=== PATIENT | female | born 1935 | race Caucasian/White ===

== ENCOUNTER 2017-09-23 14:31 | Outpatient (CLI) | payer MEDICARE, OTHER ==
--- NOTE | 2017-09-23 15:48 | RAD ---
THREE VIEWS OF THE LUMBOSACRAL SPINE: Comparison: None. History: Left sided back pain that radiates down the left leg for 2-3 months. FINDINGS: Lateral views of the lumbosacral spine were performed in neutral, flexion, and extension. Vertebral b odies demonstrate normal height and alignment without fracture or subluxation. The intervertebral dis cs are narrowed and small to moderate osteophytes are seen throughout the lumbar spine. Alignment is unchanged with flexion or extension. IMPRESSION: Degenerative changes of the lumbar spine with unchanged alignment with bending. POS: [facility]
--- NOTE | 2017-09-23 18:08 | MRI ---
MRI OF THE LUMBAR SPINE WITHOUT CONTRAST 09/23/17 COMPARISON: 02/18/14 HISTORY: Left sided back pain that radiates down the left leg for two to three months. TECHNIQUE: Multiplanar and multisequence MRI images were obtained of the lumbar spine without contrast. FINDINGS: Generalized disc desiccation and loss of intervertebral disc space height is seen. The L4-5 intervert ebral disc demonstrates surrounding end plate degenerative changes. The conus medullaris terminates normally at T12-L1. The prevertebral and paraspinal soft tissues are unremarkable. T12-L1: Unremarkable. L1-2: A small disc osteophyte complex is seen. No posterior facet arthrosis. No significant central c anal stenosis. Mild bilateral neural foraminal stenosis. L2-3: A small disc osteophyte complex is seen. Mild bilateral posterior facet arthrosis. Mild central canal stenosis. Mild bilateral neural foraminal stenosis. L3-L4: A small disc osteophyte complex is seen. Mild bilateral posterior facet arthrosis. Mild centra l canal stenosis. Mild bilateral neural foraminal stenosis. L4-5: A moderate disc osteophyte complex is seen. Moderate bilateral posterior facet arthrosis. Moder ate central canal stenosis. Moderate bilateral neural foraminal stenosis. L5-S1: A small disc osteophyte complex is associated with a superimposed right paracentral protrusion . This protrusion appears to impress upon the right S1 nerve root. Moderate to severe central canal s tenosis. Moderate bilateral posterior facet arthrosis. Moderate bilateral neural foraminal stenosis. IMPRESSION: Degenerative changes of the lumbar spine as above. There is a small superimposed protrusion at L5-S1 which has occurred in the interim. Otherwise, no significant change has occurred. POS: [facility]
== END 2017-09-23 14:32 | disposition home or self-care (01) ==
LOC: TBSIIMAG 14:31
PROVIDERS: ATTEND Nurse Practitioner Family
DX: M47.27 Other spondylosis with radiculopathy, lumbosacral region (principal); M51.17 Intervertebral disc disorders with radiculopathy, lumbosacral region; Z51.81 Encounter for therapeutic drug level monitoring; Z79.01 Long term (current) use of anticoagulants
CPT/HCPCS: 72100; 72148

== ENCOUNTER 2018-03-03 08:00 | Inpatient (IN) | payer MEDICARE, OTHER ==
[2018-03-21] MEDS ORDERED: Ropivacaine 0.5% HCl/PF (150 MG/30 ML VIAL) ONE (07:25)
[2018-03-21] MEDS ORDERED: Fentanyl 100 MCG/2 ML VIAL ONE ×5 (07:25→13:28)
[2018-03-21] MEDS ORDERED: Midazolam HCl 2 mg/2 ml Vial ONE (07:25)
[2018-03-21] MEDS ORDERED: Bupivacaine 0.25% HCL 30 ML VIAL ONE (07:25)
[2018-03-21] MEDS ORDERED: CEFAZOLIN/Water 2 GM/20 ML SYRINGE ONE (08:05)
[2018-03-21] MEDS ORDERED: Sodium Chloride 0.9% 100 ML ONE (08:05)
[2018-03-21] MEDS ORDERED: Zolpidem Tartrate 5 MG TAB PO PRN ×2 (09:21→10:10)
[2018-03-21] MEDS ORDERED: Bupivacaine 0.5% 50 ML in Sodium Chloride 0.9% 50 ML NERVE BLCK SCH (09:21)
[2018-03-21] MEDS ORDERED: Ondansetron HCl/PF 4 MG/2 ML Vial IVP PRN ×3 (09:21→10:17)
[2018-03-21] MEDS ORDERED: Ketorolac Tromethamine 30 MG/ML VIAL IVP PRN (09:21)
[2018-03-21] MEDS ORDERED: Promethazine HCl 25 MG/ML VIAL IM PRN ×3 (09:21→10:17)
[2018-03-21] MEDS ORDERED: traMADol HCl 50 MG TAB PO PRN ×2 (09:21)
[2018-03-21] MEDS ORDERED: Fentanyl 100 MCG/2 ML VIAL IV PRN (09:22)
[2018-03-21] MEDS ORDERED: HYDROcodone/Acetaminophen 7.5/325 mg Tablet PO PRN ×2 (09:24)
[2018-03-21] MEDS ORDERED: Bupivacaine PF 0.5% 30 ML VIAL ONE (09:42)
[2018-03-21] MEDS ORDERED: Acetaminophen 325 MG TAB PO PRN (10:10)
[2018-03-21] MEDS ORDERED: diphenhydrAMINE 25 MG CAP PO PRN (10:10)
[2018-03-21] MEDS ORDERED: Tranexamic Acid 1,000 MG in Sodium Chloride 0.9% 100 ML IVPB SCH (10:15)
[2018-03-21] MEDS ORDERED: Promethazine HCl 25 MG/ML VIAL SLOW IVP PRN (10:17)
[2018-03-21] MEDS ORDERED: Ondansetron HCl/PF 4 MG/2 ML Vial ONE (12:29)
[2018-03-21] MEDS ORDERED: PROPOFOL 200 MG/20 ML VIAL ONE (12:29)
[2018-03-21] MEDS ORDERED: ePHEDrine/0.9% NaCl/PF SYRINGE 50 mg/10 ml ONE (12:29)
[2018-03-21] MEDS ORDERED: Dexamethasone 20 MG/5 ML VIAL ONE (12:29)
--- NOTE | 2018-03-21 12:46 | OP ---
DATE OF PROCEDURE: 03/21/2018 PREOPERATIVE DIAGNOSIS: Left knee osteoarthrosis. POSTOPERATIVE DIAGNOSIS: Left knee osteoarthrosis. PROCEDURE PERFORMED: Left total knee replacement using Hobby pinless navigation. SURGEON: Blaine Church M.D. ENTRY LEVEL BUYER: Abilio Cee PA-C. BLOOD LOSS: Minimal. COMPLICATIONS: None. DISPOSITION: She did have general anesthetic. She also had a preoperative block. IMPLANTS: To the left knee Zaheer Triathlon knee system, the femur was size 5 cruciate retaining, t ibial baseplate size 4 universal, polyethylene is a size 9 CS X3 poly and we used a 29 x 9 X3 patella . DISPOSITION: She did go to recovery in stable condition. INDICATIONS: An 82-year-old female who has had knee arthritis and back pain for years and at this ti me has opted to have surgery. PROCEDURE IN DETAIL: After all appropriate consent forms were explained and signed, the patient was t aken back to the Operating Room and at this time was given general anesthetic. Once the level of ane sthesia was appropriate, a well-padded tourniquet was placed on the left leg and the leg was then pre pped and draped in standard surgical fashion. The limb was exsanguinated and tourniquet taken up to 300 mmHg. Midline incision was made with a 10 blade down through the skin and subcutaneous tissue. Bovie electrocautery was used to coagulate any brisk venous bleeding. A new blade was used to make a medial parapatellar arthrotomy. Small subperiosteal release was performed medially and excess fat p ad was removed. The knee was flexed up to gain access to the femur. The femur was navigated and dis piper femoral resection was made. Epicondylar access was used to align our sizing jig and this was pin cal in place. We sized our femur to be a 5 cruciate retaining 4:1 cutting block was applied and pinn ed. Anterior and posterior chamfer cuts were then made. We navigated out our proximal tibia and mad e our proximal tibial resection. Spreaders were used to remove any posterior osteophytes off the june k of the femur as well as remaining meniscal tissue. A long alignment seferino was then used to achieve c orrect rotation of our tibial baseplate and a size 4 universal tibial baseplate was chosen. This was pinned in place. We trialed the polyethylene and a 9 CS X3 polyethylene gave us full extension and good stability throughout range of motion. Two towel clips and a saw were used to cut our patella. Three lug nuts were drilled and 29 x 9 X3 patella was trialed which sat nicely in the trochlear groov e. We then drilled our femur and punched our tibia. All components were removed. The knee was thor oughly irrigated and dried. Cement was mixed into the cement gun on the back table. Components were then placed. The knee was held out in full extension until the cement had dried. All excess bone c ement was removed. Multiple #2 Vicryl stitches as well as a Quill was used to close our extensor mec hanism. 0 Quill followed by a running Monoderm was then used to close the skin. Surgicel glue was t hen used on the skin. Once this had dried, soft tissue dressing was applied to the limb, tourniquet was let down, and the toes pinked up nicely. The patient was then awakened and taken to the Recovery Room in stable condition. All counts were correct at the end of the case. The patient did receive preoperative IV antibiotics. The patient was injected with Exparel for postoperative pain relief.
[2018-03-21] MEDS: CEFAZOLIN/Water 2 GM/20 ML SYRINGE SLOW IVP SCH ×2 (17:12→23:17)
[2018-03-21] MEDS: HYDROcodone/Acetaminophen 10/325 mg Tablet PO PRN (17:20)
[2018-03-21] MEDS: Sodium Chloride 0.9% 1,000 ML IV SCH ×3 (17:22→19:52)
[2018-03-21] MEDS: Senokot S 8.6-50 MG TAB PO SCH (20:12)
[2018-03-21] MEDS: Ferrous Gluconate 324 MG TAB PO SCH (20:13)
[2018-03-21] MEDS: DULoxetine 60 MG CAP PO SCH (20:13)
[2018-03-21] MEDS ORDERED: Aspirin 81 mg Enteric Coated Tablet PO SCH (21:00)
[2018-03-22] MEDS: Bupivacaine 0.75% 33.3 ML in Sodium Chloride 0.9% 66.7 ML NERVE BLCK SCH ×2 (01:38→11:19)
[2018-03-22] MEDS: HYDROcodone/Acetaminophen 10/325 mg Tablet PO PRN ×3 (04:30→13:00)
[2018-03-22] MEDS: Sodium Chloride 0.9% 1,000 ML IV SCH ×2 (05:26→15:05)
[2018-03-22 05:29] LABS: Hemoglobin 9.9 g/dL (12.0-16.0); Mean Corpuscular HGB CONC 32.7 g/dL (32.0-36.0); Mean Corpuscular Hemoglobin 30.9 pg (27.0-31.0); Mean Corpuscular Volume 94.4 fl (81.0-99.0); Mean Platelet Volume 7.2 fL (7.4-10.4); Platelet Count 217 thou/uL (130-400); RBC Distribution Width 12.3 % (11.5-14.5); Red Blood Cell (RBC) Count 3.22 mill/uL (4.20-5.40); White Blood Cell (WBC) Count 11.2 thou/uL (4.8-10.8)
[2018-03-22 06:58] LABS: Anion Gap 13 mmol/L (10-20); BUN (Urea Nitrogen) 30 mg/dL (9.8-20.1); Calc. Creatinine Clearance 0 mL/min (70-130); Calcium 8.7 mg/dL (7.8-10.44); Carbon Dioxide 21 mmol/L (23-31); Chloride 108 mmol/L (98-107); Estimated GFR-MDRD 45; Glucose 125 mg/dL (83-110); Potassium 4.4 mmol/L (3.5-5.1); Sodium 138 mmol/L (136-145)
[2018-03-22] MEDS: Furosemide 40 MG TAB PO SCH (08:41)
[2018-03-22] MEDS: Calcium Carbonate + Vit D 1 TAB PO SCH ×2 (08:41→20:47)
[2018-03-22] MEDS: Ferrous Gluconate 324 MG TAB PO SCH ×2 (08:41→20:47)
[2018-03-22] MEDS: Multivitamin W/ Minerals 1 TAB PO SCH (08:41)
[2018-03-22] MEDS: Senokot S 8.6-50 MG TAB PO SCH ×2 (08:41→20:47)
[2018-03-22] MEDS: Fish Oil 1,000 MG CAP PO SCH (08:42)
--- NOTE | 2018-03-22 09:13 | CON ---
DATE OF CONSULTATION: 03/22/2018 REASON FOR CONSULTATION: Medical management. PRESENTING COMPLAINT: Left knee pain. HISTORY OF PRESENT ILLNESS: Ms. Catina Asif is an 82-year-old female with a past medical history of CKD, hypertension and hyperlipidemia who was admitted yesterday for a left total replacements of the knee. Her only complaint is postop pain in her left knee. She otherwise feels fine. She denies matthew st pain, shortness of breath, PND, orthopnea, lower extremity edema. She has no abdominal or urinary symptoms. She reports a history of hypertension, hyperlipidemia and history of chronic kidney disea se. She has not been diagnosed with heart failure in the past. She has been on Lasix for about 40 y ears for lower extremity edema. She also takes a daily aspirin and valsartan for blood pressure. PAST MEDICAL HISTORY: As stated in the HPI. PAST SURGICAL HISTORY: Right knee replacement. Other history reviewed and noncontributory. FAMILY HISTORY: Reviewed and noncontributory. SOCIAL HISTORY: She does not smoke cigarettes, drink alcohol or use illicit drugs. ALLERGIES: No known drug allergies. HOME MEDICATIONS: Reviewed. REVIEW OF SYSTEMS: All systems reviewed are negative except as stated in HPI. PHYSICAL EXAMINATION: VITAL SIGNS: Blood pressure 129/67, temperature 98.9, pulse rate 93, respiratory rate 18, oxygen sat uration 96% on 2 liters of nasal cannula. GENERAL: Not in acute distress, sitting comfortably in chair beside the bed. HEENT: Normocephalic, atraumatic. Moist mucous membranes. PERRLA, EOMI. NECK: Supple, full range of movement. CARDIOVASCULAR: S1 and S2 normally. Regular rate and rhythm. No murmurs, rubs or gallops. RESPIRATORY: Vesicular breath sounds bilaterally. No wheezes, rales or rhonchi. ABDOMEN: Soft, nontender, nondistended. Bowel sounds normoactive. EXTREMITIES: No edema. Left knee in protective brace. NEUROLOGIC: Alert and well oriented. No focal deficits. SKIN: Warm, dry, well-perfused. No rashes or lesions. PSYCHIATRIC: Normal mood and affect. LABORATORY DATA: Reviewed. ASSESSMENT AND PLAN: Her problems include hypertension, hyperlipidemia, chronic kidney disease and s he is status post total left knee replacement. PLAN: Will recommend continuing with her home medications as tolerated. Further management for her postop need to be directed to the Orthopedic Surgery Service. Internal Medicine Service will sign of f for now. Please do not hesitate to call us if you have any questions or concerns.
[2018-03-22 11:09] VITALS: BMI 37.6
[2018-03-22] MEDS: traMADol HCl 50 MG TAB PO PRN (15:09)
[2018-03-22] MEDS: DULoxetine 60 MG CAP PO SCH (20:47)
[2018-03-22] MEDS ORDERED: Latanoprost 0.005% Ophth Soln 2.5 ml Bottle EA EYE SCH (21:00)
[2018-03-23] MEDS: Bupivacaine 0.75% 33.3 ML in Sodium Chloride 0.9% 66.7 ML NERVE BLCK SCH (01:06)
[2018-03-23] MEDS: HYDROcodone/Acetaminophen 10/325 mg Tablet PO PRN (01:32)
[2018-03-23] MEDS: Sodium Chloride 0.9% 1,000 ML IV SCH ×2 (01:37→10:07)
[2018-03-23 05:07] LABS: Hemoglobin 9.8 g/dL (12.0-16.0); Mean Corpuscular HGB CONC 32.3 g/dL (32.0-36.0); Mean Corpuscular Hemoglobin 30.3 pg (27.0-31.0); Mean Corpuscular Volume 93.8 fl (81.0-99.0); Mean Platelet Volume 7.4 fL (7.4-10.4); Platelet Count 216 thou/uL (130-400); RBC Distribution Width 12.5 % (11.5-14.5); Red Blood Cell (RBC) Count 3.25 mill/uL (4.20-5.40); White Blood Cell (WBC) Count 11.7 thou/uL (4.8-10.8)
[2018-03-23] MEDS: Senokot S 8.6-50 MG TAB PO SCH (08:38)
[2018-03-23] MEDS: Ferrous Gluconate 324 MG TAB PO SCH (08:39)
[2018-03-23] MEDS: Furosemide 40 MG TAB PO SCH (08:39)
[2018-03-23] MEDS: Multivitamin W/ Minerals 1 TAB PO SCH (08:39)
[2018-03-23] MEDS: Calcium Carbonate + Vit D 1 TAB PO SCH (08:39)
[2018-03-23] MEDS: Fish Oil 1,000 MG CAP PO SCH (08:39)
[2018-03-23] MEDS: traMADol HCl 50 MG TAB PO PRN (15:11)
[2018-03-23 15:35] VITALS: BP 163/80; TEMP 98.1
== END 2018-03-23 15:44 | DRG 470 ==
LOC: SJJU 03-21 06:57
PROVIDERS: ADMIT Orthopaedic Surgery; ATTEND Orthopaedic Surgery
PROC: 0SRD0J9 Replacement of Left Knee Joint with Synthetic Substitute, Cemented, Open Approach (ICD-10-PCS; principal; 2018-03-21)
PROC: 3E0T33Z Introduction of Anti-inflammatory into Peripheral Nerves and Plexi, Percutaneous Approach (ICD-10-PCS; 2018-03-21)
PROC: 3E0T3BZ Introduction of Anesthetic Agent into Peripheral Nerves and Plexi, Percutaneous Approach (ICD-10-PCS; 2018-03-21)
DX: M17.12 Unilateral primary osteoarthritis, left knee (principal); I12.9 Hypertensive chronic kidney disease with stage 1 through stage 4 chronic kidney disease, or unspecified chronic kidney disease; N18.9 Chronic kidney disease, unspecified; E78.5 Hyperlipidemia, unspecified; G89.18 Other acute postprocedural pain; Z96.651 Presence of right artificial knee joint; Z79.899 Other long term (current) drug therapy; Z79.82 Long term (current) use of aspirin; Z85.3 Personal history of malignant neoplasm of breast; Z86.19 Personal history of other infectious and parasitic diseases; Z90.13 Acquired absence of bilateral breasts and nipples; Z87.39 Personal history of other diseases of the musculoskeletal system and connective tissue
CPT/HCPCS: 36415; 80048; 85027; C1713; C1776; G8978-GP-CL; G8979-GP-CI; J1100; J2250; J2405; J2704; J2795; J3010; J3370; J3490; J7050; S0020

== ENCOUNTER 2018-03-03 08:05 | Outpatient (CLI) | payer MEDICARE, OTHER ==
[2018-03-03 09:07] VITALS: BMI 37.6
[2018-03-03 09:10] LABS: #Basophils 0.1 thou/uL (0.0-0.2); #Eosinphils 0.2 thou/uL (0.0-0.7); #Lymphocytes 2.2 thou/uL (1.20-3.40); #Monocytes 0.7 thou/uL (0.11-0.59); #Neutrophils 3.4 thou/uL (1.40-6.50); %Basophils 0.9 % (0.0-1.0); %Eosinophils 3.5 % (0.0-10.0); %Lymphocytes 33.7 % (21.0-51.0); %Monocytes 9.9 % (0.0-10.0); Hemoglobin 11.5 g/dL (12.0-16.0); Mean Corpuscular HGB CONC 33.2 g/dL (32.0-36.0); Mean Corpuscular Hemoglobin 31.4 pg (27.0-31.0); Mean Corpuscular Volume 94.6 fl (81.0-99.0); Mean Platelet Volume 7.3 fL (7.4-10.4); Platelet Count 271 thou/uL (130-400); RBC Distribution Width 12.4 % (11.5-14.5); Red Blood Cell (RBC) Count 3.68 mill/uL (4.20-5.40); White Blood Cell (WBC) Count 6.6 thou/uL (4.8-10.8)
[2018-03-03 09:25] LABS: Bilirubin Negative (Negative); Blood, Urine Negative (Negative); Clarity CLEAR (Clear); Glucose, Urine (Dipstick) Negative (Negative); Leukocyte Trace (Negative); Nitrite Negative (Negative); Protein, Urine (Dipstick) Negative (Neg-Trace); Specific Gravity, Urine 1.013 (1.002-1.036); Urobilinogen 0.2 mg/dL (0.2-1.0); pH, Urine 6.5 (5.0-9.0)
[2018-03-03 09:29] LABS: Bacteria/HPF None Seen HPF (None Seen); Hyaline Casts/LPF 0-3 HYALINE CAST LPF (0-3 Hyaline); RBC/HPF 0-3 HPF (0-3); Squamous Epithelial None Seen HPF (0-3); WBC/HPF 0-3 HPF (0-3)
[2018-03-03 09:32] LABS: Anion Gap 12 mmol/L (10-20); BUN (Urea Nitrogen) 31 mg/dL (9.8-20.1); Calc. Creatinine Clearance 54 mL/min (70-130); Calcium 9.9 mg/dL (7.8-10.44); Carbon Dioxide 26 mmol/L (23-31); Chloride 105 mmol/L (98-107); Estimated GFR-MDRD 31; Glucose 97 mg/dL (83-110); Potassium 4.7 mmol/L (3.5-5.1); Sodium 138 mmol/L (136-145)
[2018-03-03 10:06] LABS: PTT 29.3 SEC (22.9-36.1); Prothrombin Time 12.9 SEC (12.0-14.7)
--- NOTE | 2018-03-03 20:29 | EKG ---
Test Reason : Blood Pressure : / mmHG Vent. Rate : 059 BPM Atrial Rate : 059 BPM P-R Int : 196 ms QRS Dur : 088 ms QT Int : 412 ms P-R-T Axes : 061 062 067 degrees QTc Int : 407 ms Sinus bradycardia Otherwise normal ECG When compared with ECG of 24-APR-2014 13:53, No significant change was found Confirmed by JAYLEEN HATHAWAY, DR. Gallegos ([id number]) on 03/03/2018 8:28:54 PM Referred By: IERO Confirmed By:DR. El CLEMENS MD
== END 2018-03-03 08:06 | disposition home or self-care (01) ==
LOC: LABBT 08:05
PROVIDERS: ATTEND Orthopaedic Surgery
DX: Z01.818 Encounter for other preprocedural examination (principal); M17.12 Unilateral primary osteoarthritis, left knee
CPT/HCPCS: 80048; 81001; 85025; 85610; 85730; 87081; 93005; 93010

== ENCOUNTER 2018-03-16 16:01 | Outpatient (CLI) | payer MEDICARE, OTHER | END 2018-03-16 16:02 | disposition home or self-care (01) | LOC: LABBT 16:01 | PROVIDERS: ATTEND Orthopaedic Surgery | DX: Z01.818 Encounter for other preprocedural examination (principal); M17.12 Unilateral primary osteoarthritis, left knee | CPT/HCPCS: 86850; 86900; 86901 ==

== ENCOUNTER 2018-05-17 13:43 | Inpatient (IN) | payer MEDICARE, OTHER ==
--- NOTE | 2018-05-17 14:57 | RAD ---
RIGHT ANKLE THREE VIEWS: History: Fall, right ankle injury. FINDINGS: Comminuted oblique fracture of the distal fibula just above the level of the ankle mortise is present with one-half shaft width lateral displacement. Impacted and comminuted minimally displaced fracture involving the base of the medial malleolus is present. There is 0.3 cm lateral shift of all fragment s and the talus. Posterior malleolus is intact. Degenerative changes throughout the ankle and hindfoo t. Achilles and plantar heel spurs. Overlying soft tissue swelling. IMPRESSION: Bimalleolar fracture right ankle with mild lateral subluxation. POS: [facility]
[2018-05-17 16:06] LABS: INR-International Normal Ratio 0.9; Prothrombin Time 12.5 SEC (12.0-14.7)
[2018-05-17 16:17] LABS: ALT (SGPT) 13 U/L (8-55); AST (SGOT) 20 U/L (5-34); Albumin 4.6 g/dL (3.4-4.8); Alkaline Phosphatase 71 U/L (40-150); Anion Gap 15 mmol/L (10-20); BUN (Urea Nitrogen) 28 mg/dL (9.8-20.1); Bilirubin, Total 0.3 mg/dL (0.2-1.2); Calc. Creatinine Clearance 0 mL/min (70-130); Calcium 10.4 mg/dL (7.8-10.44); Carbon Dioxide 24 mmol/L (23-31); Chloride 104 mmol/L (98-107); Estimated GFR-MDRD 37; Globulin 3.7 g/dL (2.4-3.5); Glucose 91 mg/dL (83-110); Protein, Total 8.3 g/dL (6.0-8.3); Sodium 139 mmol/L (136-145)
[2018-05-17] MEDS ORDERED: Dextrose 5% in Water 1,000 ML IV PRN ×2 (16:45→17:00)
[2018-05-17] MEDS ORDERED: Dextrose 50% Abboject 50 ML SYRINGE SLOW IVP PRN ×2 (16:45→17:00)
[2018-05-17] MEDS ORDERED: hydrALAZINE 20 MG/ML VIAL SLOW IVP PRN (17:00)
[2018-05-17 17:06] LABS: #Basophils 0.1 thou/uL (0.0-0.2); #Eosinphils 0.2 thou/uL (0.0-0.7); #Lymphocytes 2.8 thou/uL (1.20-3.40); #Monocytes 0.6 thou/uL (0.11-0.59); #Neutrophils 5.5 thou/uL (1.40-6.50); %Basophils 0.9 % (0.0-1.0); %Eosinophils 2.6 % (0.0-10.0); %Lymphocytes 30.1 % (21.0-51.0); %Monocytes 6.7 % (0.0-10.0); %Neutrophils 59.6 % (42.0-75.0); Hemoglobin 11.7 g/dL (12.0-16.0); Mean Corpuscular HGB CONC 33.3 g/dL (32.0-36.0); Mean Corpuscular Hemoglobin 31.2 pg (27.0-31.0); Mean Corpuscular Volume 93.7 fL (78.0-98.0); Mean Platelet Volume 7.6 fL (7.4-10.4); Platelet Count 298 thou/uL (130-400); RBC Distribution Width 12.7 % (11.5-14.5); Red Blood Cell (RBC) Count 3.74 mill/uL (4.20-5.40); White Blood Cell (WBC) Count 9.1 thou/uL (4.8-10.8)
[2018-05-17 19:42] VITALS: BMI 38.5
[2018-05-17] MEDS: Acetaminophen 1,000 MG in Premix Bag 1 BAG IVPB SCH (20:49)
--- NOTE | 2018-05-17 22:03 | CON ---
DATE OF CONSULTATION: 05/17/2018 CHIEF COMPLAINT: Right ankle pain. HISTORY OF PRESENT ILLNESS: Ms. Asif is an 82-year-old female who fell at home today. She was outsi de in her yard. She tripped and lost her balance. She twisted her ankle. She had immediate ankle p ain. She has an abrasion over her left knee as well. She was unable to ambulate. EMS brought her t o the hospital for evaluation. X-rays of the ankle demonstrated a bimalleolar ankle fracture. She i s resting comfortably in the emergency room currently. She has had no other serious injuries and has been stable. Of note, she did have a left total knee arthroplasty approximately 2 months ago. She has also had a right knee arthroplasty in the past. She was still doing physical therapy for her lef t knee. PAST MEDICAL HISTORY: Positive for hypertension, hyperlipidemia, chronic kidney disease, chronic mela ma, CHF. PAST SURGICAL HISTORY: Bilateral total knee arthroplasty. FAMILY MEDICAL HISTORY: Noncontributory. SOCIAL HISTORY: The patient denies alcohol, tobacco or drug use. ALLERGIES: No known drug allergies. MEDICATIONS: See chart. REVIEW OF SYSTEMS: Positive for right ankle pain and left knee pain as per HPI, otherwise negative 1 0-point review of systems. PHYSICAL EXAMINATION: VITAL SIGNS: Stable. The patient is normotensive, 98% on room air. GENERAL: She is alert, oriented, no apparent distress, sitting upright. RESPIRATORY: Breathing comfortably. ABDOMEN: Soft, nontender, nondistended. MUSCULOSKELETAL: The patient's right lower extremity has some external rotation. She has pain to pa lpation over the malleoli. There is swelling and ecchymosis. She has palpable dorsalis pedis pulse. She is able to flex and extend the foot and ankle and has intact neurological status. Two-second c apillary refill. The left knee has a superficial abrasion. She has a well healed surgical scar over the anterior knee. IMAGES: X-rays of the right ankle demonstrated displaced bimalleolar ankle fracture, which is acute. IMPRESSION: Right bimalleolar ankle fracture in a patient with recent total knee arthroplasty. PLAN: At this point, the patient will need to be admitted to the hospital. She will have difficulty mobilizing given that she has had a recent knee replacement and she is nonweightbearing on the right leg. She will be placed in a splint tonight. She will need to go to the operating room tomorrow fo r open reduction internal fixation of the right ankle. She is aware of risks and benefits and the pa ed for surgery. Surgical plan as well as postoperative recovery was reviewed with her. She will lik gorge need placement to a rehab facility for recovery. She will have appropriate DVT prophylaxis and a ntibiotic prophylaxis.
[2018-05-17] MEDS: Sodium Chloride 0.9% 1,000 ML IV SCH (23:36)
[2018-05-17] MEDS ORDERED: Sodium Chloride 0.9% 1,000 ML IV SCH (23:59)
[2018-05-18] MEDS: Acetaminophen 1,000 MG in Premix Bag 1 BAG IVPB SCH ×4 (01:59→20:41)
--- NOTE | 2018-05-18 03:01 | HP ---
DATE OF ADMISSION: 05/17/2018 ADMITTING PHYSICIAN: Dr. Kris Horne. CONSULTING PHYSICIAN: Dr. Robbi Crow, Orthopedics. HISTORY OF PRESENT ILLNESS: Ms. Asif is an 82-year-old female who presented to the [facility] after a ground-level fall today. She apparently was ambulating with her cane which mika mccall has used since knee surgery in 03/2018. The cane slipped off the curb that she was stepping off of causing her to lose her balance and fall. She rolled her right ankle in the process of falling to t he ground. She sustained no other injury. She complained of right ankle pain. She was transported to [facility] where she underwent evaluation that identified right ankle fractur e. PAST MEDICAL HISTORY: 1. Breast cancer. 2. Hypertension. 3. Gastroesophageal reflux disease. 4. Hyperlipidemia. PAST SURGICAL HISTORY: 1. Bilateral total knee replacement, right in 2013, left 03/2018. 2. Double mastectomy in 1993. 3. Achilles tendon repair in 2016. SOCIAL HISTORY: Alcohol none. Tobacco none. Drugs, none. HOME MEDICATIONS: 1. Acetaminophen 650 mg tablet every morning as needed. 2. Aspirin 81 mg tablet q.p.m. 3. Lumigan 0.01% ophthalmic solution 1 drop each eye at bedtime. 4. Calcium carbonate plus vitamin D 1500 mg/400 units 1 tab p.o. b.i.d. 5. Vitamin D3 1000 units q.p.m. 6. Cymbalta 60 mg q.p.m. 7. Fish oil 1200 mg q.a.m. 8. Furosemide 40 mg q.a.m. 9. Glucosamine/D3/Boswellia Josefina 1 tablet p.o. b.i.d. 10. Centrum Silver 1 tablet p.o. q.p.m. 11. Pantoprazole 40 mg p.o. at bedtime. 12. Pravachol 20 mg p.o. q.p.m. 13. Lyrica 50 mg p.o. b.i.d. 14. Spironolactone 25 mg p.o. q.a.m. 15. Timolol maleate 0.5% ophthalmic solution 1 drop each eye daily. ALLERGIES: TRAMADOL. LABORATORY DATA: CBC: WBC 9.1, RBC 3.74, hemoglobin 11.7, hematocrit 35.0, platelets 298. Coags: PT 12.5, INR 0.9. Chemistry: Sodium 139, potassium 4.0, chloride 104, carbon dioxide 24, BUN 28, cr eatinine 1.38, glucose 91. It should be noted that patient has chronic kidney disease stage 3. Creatinine 1.38 is near baseline range. REVIEW OF SYSTEMS: Constitutional: The patient denies fever, chills, recent weight loss or generali zed malaise. HEENT: Denies sore throat, rhinorrhea, otorrhea or neck pain. Respiratory: Denies co ugh, shortness of breath or wheezing. Cardiovascular: Denies chest pain, palpitations or syncope. Gastrointestinal: Denies abdominal pain, constipation, nausea, vomiting or diarrhea. Genitourinary: Denies dysuria, hematuria or frequency. Musculoskeletal: Reports fall, reports right ankle pain. Skin: Denies rash or skin changes. Neurologic: Denies headache, dizziness or focal deficit. Heme/Lymphatic: Denies abnormal bleeding. PHYSICAL EXAMINATION: VITAL SIGNS: Blood pressure 152/56, pulse 60, respirations 18, temperature 98.1, O2 sat 96% room air . GENERAL: Elderly female, sitting on bed, in no acute distress, nontoxic appearing. HEENT: Atraumatic, normocephalic. NECK: Trachea midline. No posterior neck tenderness. RESPIRATORY: Bilateral breath sounds clear. No respiratory distress. Chest movement symmetrical. CARDIOVASCULAR: Regular rate and rhythm. Heart sounds normal. ABDOMEN: Soft, nontender, nondistended, no masses. BACK: Normal inspection and range of motion. EXTREMITIES: Right lower extremity with a splint in place. Cap refill brisk in all extremities, bijan rovascular intact lower extremities. NEUROLOGIC: GCS 15. Awake, alert, and oriented x3. SKIN: Warm, dry, and normal in color. ASSESSMENT AND PLAN: 1. An 82-year-old female status post ground level fall. 2. Right bimalleolar ankle fracture. 3. History of chronic kidney disease stage 3. 4. History of hypertension. 5. History of gastroesophageal reflux disease. 6. History of hyperlipidemia. 7. Patient is currently on diuretics. Reportedly, she has been on diuretics for 40 years due to low er extremity edema. She denies CHF or cardiac abnormalities. PLAN: 1. Admit to surgical floor by Trauma Services. 2. Orthopedic consult, Dr. Crow. Dr. Crow plans to take patient to the OR tomorrow. 3. Regular diet tonight. N.p.o. after midnight. 4. IV fluids, IV analgesia. 5. Obtain preop EKG. 6. Physical and occupational therapy with orthopedic restrictions postoperatively. 7. Rehabilitation referral. The patient was recently in inpatient rehabilitation after left total k nee replacement. 8. SCDs for DVT prophylaxis. 9. Pepcid for gastritis prophylaxis. The patient was seen and examined with Dr. Horne, who agrees with plan.
[2018-05-18 06:20] LABS: Anion Gap 14 mmol/L (10-20); BUN (Urea Nitrogen) 25 mg/dL (9.8-20.1); Calc. Creatinine Clearance 78 mL/min (70-130); Calcium 9.2 mg/dL (7.8-10.44); Carbon Dioxide 23 mmol/L (23-31); Chloride 108 mmol/L (98-107); Estimated GFR-MDRD 47; Glucose 95 mg/dL (83-110); Sodium 141 mmol/L (136-145)
[2018-05-18 06:23] LABS: #Eosinphils 0.2 thou/uL (0.0-0.7); #Lymphocytes 2.1 thou/uL (1.20-3.40); #Monocytes 0.7 thou/uL (0.11-0.59); #Neutrophils 3.6 thou/uL (1.40-6.50); %Basophils 0.5 % (0.0-1.0); %Eosinophils 3.1 % (0.0-10.0); %Lymphocytes 31.5 % (21.0-51.0); %Monocytes 10.9 % (0.0-10.0); Hemoglobin 9.8 g/dL (12.0-16.0); Mean Corpuscular HGB CONC 33.4 g/dL (32.0-36.0); Mean Corpuscular Hemoglobin 31.4 pg (27.0-31.0); Mean Platelet Volume 7.5 fL (7.4-10.4); Platelet Count 217 thou/uL (130-400); RBC Distribution Width 12.6 % (11.5-14.5); White Blood Cell (WBC) Count 6.7 thou/uL (4.8-10.8)
[2018-05-18] MEDS ORDERED: CEFAZOLIN/Water 2 GM/20 ML SYRINGE SLOW IVP SCH (07:15)
[2018-05-18] MEDS: Famotidine/PF 20 mg/2ml Vial SLOW IVP SCH (09:30)
[2018-05-18 09:59] LABS: Phosphorus 3.9 mg/dL (2.3-4.7)
[2018-05-18] MEDS ORDERED: CEFAZOLIN/Water 2 GM/20 ML SYRINGE ONE (11:36)
[2018-05-18] MEDS ORDERED: Fentanyl 100 MCG/2 ML VIAL ONE ×2 (11:37→13:51)
[2018-05-18] MEDS ORDERED: Dexamethasone 4 mg/ml Vial ONE (11:38)
[2018-05-18] MEDS ORDERED: Midazolam HCl 2 mg/2 ml Vial ONE (11:39)
[2018-05-18] MEDS ORDERED: Bupivacaine HCl 0.5%/Epinephrine 1:200,000/PF 30 ml Vial ONE (12:44)
[2018-05-18] MEDS ORDERED: PROPOFOL 200 MG/20 ML VIAL ONE (13:51)
[2018-05-18] MEDS ORDERED: Lidocaine 1% PF 5 ML VIAL ONE (13:51)
[2018-05-18] MEDS ORDERED: Ondansetron HCl/PF 4 MG/2 ML Vial ONE (13:51)
[2018-05-18] MEDS ORDERED: Dexamethasone 20 MG/5 ML VIAL ONE (13:51)
--- NOTE | 2018-05-18 14:38 | OP ---
DATE OF PROCEDURE: 05/18/2018. PREOPERATIVE DIAGNOSIS: Right trimalleolar ankle fracture. POSTOPERATIVE DIAGNOSIS: Right trimalleolar ankle fracture. SURGICAL PROCEDURE: Open reduction internal fixation right medial and lateral malleoli. ANESTHESIA: General. SURGEON: Sky Dan M.D. POWDER SHOVELER: Robbi Cee PA-C TOURNIQUET TIME: Approximately 45 minutes at 300 mmHg. IMPLANTS: Synthes 1/3 tubular 7-hole plate with combination of cortical and cancellous screws. COMPLICATIONS: None. DRAINS: None. SPECIMEN: None. OUTCOME: Satisfactory. INDICATIONS: The patient is an 82-year-old lady status post ground level fall sustaining a trimalleo lar ankle fracture with a very small posterior malleolar fragment. After discussion with patient inc luding risks and benefits, we decided to proceed with open reduction and internal fixation. The risk s include, but are not limited to bleeding, infection, nerve injury, DVT, PE, loss of limb or life. The patient appears to understand and does wish to proceed. Consent has been obtained. PROCEDURE: The patient was brought to the operating room and a timeout performed followed by inducti on of general anesthesia. Next, the patient was positioned supine on the OR table and then a sterile prep and drape was performed of the right lower extremity. The limb was then exsanguinated with Esm arch bandage, tourniquet inflated to 300 mmHg. A lateral ankle incision was made in line with the di stal fibula after skin was sharply incised, dissection was carried down bluntly to the underlying per iosteum of the distal fibula. The periosteum was incised with a scalpel and then reflected gently to expose the fracture edges. The fracture was then reduced and held in place with a bone tenaculum. An anterior to posterior interfragmentary compression screw was applied in standard fashion. Next, a 7-hole 1/3 tubular plate was contoured to fit the lateral cortex of the distal fibula. This was the n fit to the bone using 4 cortical screws proximally and 3 cancellous screws distally. AP, lateral C -arm images were obtained that showed near anatomic alignment of the fracture. Next, a small incisio n was made along the medial malleolus after skin was sharply incised, dissection was carried down shaheen ntly, taking care to preserve the saphenous vein. The fracture was reduced and then stabilized with 2 partially threaded 4.0 mm cancellous screws in standard fashion. At the completion of hardware christ cement, AP, lateral and mortise x-rays of the ankle were obtained that showed anatomic alignment of t he fracture and appropriate positioning of the hardware. The wounds were then irrigated with bulb sy ringe and closed in layers with 0 Vicryl followed by 2-0 Vicryl and darien for the skin. A Xeroform gauze, Webril, and fiberglass splint was applied to the ankle. Tourniquet was let down with approxi mate total time of 45 minutes. There were no complications. The patient tolerated the procedure wel l.
--- NOTE | 2018-05-18 16:29 | PRG ---
DATE OF SERVICE: 05/18/2018 ATTENDING PHYSICIAN: Dr. Kris Horne. SUBJECTIVE: Ms. Asif is an 82-year-old female, who sustained a ground-level fall yesterday. Workup identified a right bimalleolar fracture. She is scheduled for the operating room today with Orthoped ic Surgery for fixation of her fracture. She reports the pain was not well controlled overnight. OBJECTIVE: VITAL SIGNS: Temperature 97.9, pulse 66, respirations 18, O2 sat 94% on room air, blood pressure 125 /68. CONSTITUTIONAL: Elderly female, lying in bed, in no acute distress. HEENT: Atraumatic, normocephalic. RESPIRATORY: Respirations even and unlabored. Chest movement symmetrical. CARDIOVASCULAR: Regular rate and rhythm. ABDOMEN: Soft, nontender, nondistended. EXTREMITIES: Moves all extremities. Cap refill brisk in all extremities. Neurovascularly intact. NEUROLOGIC: GCS 15. Awake, alert, and oriented x3. LABORATORY STUDIES: CBC: WBC 6.7, RBC 3.10, hemoglobin 9.8, hematocrit 29.2, platelets 217,000. Ch emistry: Sodium 141, potassium 4.0, chloride 108, carbon dioxide 23, BUN 25, creatinine 1.11, glucos e 95, calcium 9.2, phosphorus 3.9, magnesium 2.0. ASSESSMENT: 1. Status post ground-level fall. 2. Right bimalleolar ankle fracture. 3. History of chronic kidney disease, stage 3. 4. History of hypertension. 5. History of gastroesophageal reflux disease. 6. History of hyperlipidemia. 7. Acute traumatic pain. PLAN: 1. Plan for Orthopedic Surgery to fix bimalleolar ankle fracture today. 2. Add IV morphine for breakthrough pain. 3. Continue n.p.o. Anticipate will resume regular diet postoperatively. 4. Physical and occupational therapy with orthopedic restrictions postoperatively. 5. Rehabilitation referral made yesterday. The patient was recently in inpatient rehabilitation aft er left total knee replacement. 6. SCDs for DVT prophylaxis. Begin chemical DVT prophylaxis when okay with Orthopedic Surgery. 7. Pepcid for gastritis prophylaxis. The patient was seen and examined with Dr. Horne, who agrees with plan.
--- NOTE | 2018-05-18 17:24 | RAD ---
INTRAOPERATIVE THREE VIEW EXAMINATION OF THE RIGHT ANKLE: 05/18/18 HISTORY: Open reduction and internal fixation of ankle fracture. FINDINGS: Three intraoperative images are provided. There are two screws traversing the obliquely oriented medi al malleolar fracture. A distal fibular fracture is treated with a lateral screw and plate fixation. There is no evidence for dislocation. IMPRESSION: Open reduction and internal fixation of fibular and tibial fractures as detailed above. POS: [facility]
[2018-05-18] MEDS: DULoxetine 60 MG CAP PO SCH (20:35)
[2018-05-18] MEDS: Pregabalin 50 MG CAP PO SCH (20:35)
[2018-05-18] MEDS: Pravastatin Sodium 20 MG TAB PO SCH (20:36)
[2018-05-18] MEDS: Latanoprost 0.005% Ophth Soln 2.5 ml Bottle EA EYE SCH (20:45)
[2018-05-18] MEDS: CEFAZOLIN/Water 2 GM/20 ML SYRINGE SLOW IVP SCH (20:50)
[2018-05-19] MEDS: Sodium Chloride 0.9% 1,000 ML IV SCH ×2 (00:52→00:53)
[2018-05-19 04:39] LABS: #Basophils 0.1 thou/uL (0.0-0.2); #Lymphocytes 1.4 thou/uL (1.20-3.40); #Monocytes 0.2 thou/uL (0.11-0.59); #Neutrophils 7.7 thou/uL (1.40-6.50); %Eosinophils 0.1 % (0.0-10.0); %Lymphocytes 14.9 % (21.0-51.0); %Monocytes 2.4 % (0.0-10.0); %Neutrophils 81.6 % (42.0-75.0); Hemoglobin 9.9 g/dL (12.0-16.0); Mean Corpuscular HGB CONC 32.9 g/dL (32.0-36.0); Mean Corpuscular Hemoglobin 31.6 pg (27.0-31.0); Mean Corpuscular Volume 95.9 fL (78.0-98.0); Mean Platelet Volume 7.7 fL (7.4-10.4); Platelet Count 184 thou/uL (130-400); RBC Distribution Width 12.8 % (11.5-14.5); Red Blood Cell (RBC) Count 3.15 mill/uL (4.20-5.40); White Blood Cell (WBC) Count 9.4 thou/uL (4.8-10.8)
[2018-05-19 04:59] LABS: Anion Gap 14 mmol/L (10-20); BUN (Urea Nitrogen) 21 mg/dL (9.8-20.1); Calc. Creatinine Clearance 79 mL/min (70-130); Carbon Dioxide 20 mmol/L (23-31); Chloride 109 mmol/L (98-107); Estimated GFR-MDRD 48; Glucose 155 mg/dL (83-110); Magnesium 2.1 mg/dL (1.6-2.6); Phosphorus 2.6 mg/dL (2.3-4.7); Potassium 4.4 mmol/L (3.5-5.1); Sodium 139 mmol/L (136-145)
[2018-05-19] MEDS: CEFAZOLIN/Water 2 GM/20 ML SYRINGE SLOW IVP SCH ×2 (05:33→14:15)
[2018-05-19] MEDS ORDERED: Ibuprofen 600 MG TAB PO SCH (08:15)
[2018-05-19] MEDS: Ibuprofen 200 MG TAB PO SCH ×2 (08:54→17:50)
[2018-05-19] MEDS: Acetaminophen 500 MG TAB PO SCH ×3 (08:54→20:05)
[2018-05-19] MEDS: Enoxaparin Sodium 40 MG/0.4 ML SYRINGE SC SCH (08:55)
[2018-05-19] MEDS: Pregabalin 50 MG CAP PO SCH ×2 (08:56→20:05)
[2018-05-19] MEDS: Famotidine/PF 20 mg/2ml Vial SLOW IVP SCH (08:57)
[2018-05-19] MEDS ORDERED: Spironolactone 25 MG TAB PO SCH (09:00)
[2018-05-19] MEDS ORDERED: Furosemide 40 MG TAB PO SCH (09:00)
[2018-05-19] MEDS ORDERED: Enoxaparin Sodium 30 MG/0.3 ML SYRINGE SC SCH (09:00)
[2018-05-19] MEDS: Timolol 0.5% Ophth Soln 5 ml Bottle EA EYE SCH (10:36)
--- NOTE | 2018-05-19 14:48 | PRG ---
DATE OF SERVICE: 05/19/2018 ATTENDING PHYSICIAN: Dr. Kris Horne. SUBJECTIVE: Ms. Asif is an 82-year-old female who had a ground level fall on 05/17/2018. She sustai cal a right bimalleolar fracture. She is postoperative day #1, status post ORIF of her right ankle. She has been stable on the medical floor. Pain management has been adjusted for optimal pain relief . She has been hemodynamically stable. OBJECTIVE: VITAL SIGNS: Temperature 97.7, pulse 66, respirations 18, O2 sat 97% room air, blood pressure 146/79 . CONSTITUTIONAL: Elderly female sitting up in chair, in no acute distress. HEENT: Atraumatic, normocephalic. RESPIRATORY: Respirations even and unlabored. Chest movement symmetrical. CARDIOVASCULAR: Regular rate and rhythm. ABDOMEN: Soft, nontender, nondistended. EXTREMITIES: Moves all extremities. Cap refill brisk. Neurovascularly intact. Splint placed in th e right lower extremity. NEUROLOGIC: GCS 15. Awake, alert, oriented x3. No focal deficits. LABORATORY DATA: CBC: WBC 9.4, RBC 3.15, hemoglobin 9.9, hematocrit 30.2, platelets 184. Chemistry : Sodium 139, potassium 4.4, chloride 109, carbon dioxide 20, BUN 21, creatinine 1.10, glucose 155, calcium 9.0, phosphorus 2.6, magnesium 2.1. ASSESSMENT: 1. Status post ground level fall. 2. Right bimalleolar ankle fracture, postoperative day #1 status post open reduction internal fixati on. 3. History of chronic kidney disease. 4. History of hypertension. 5. History of gastroesophageal reflux disease. 6. History of hyperlipidemia. 7. Acute traumatic pain, well controlled. PLAN: 1. Continue current pain regimen. 2. Continue mobilizing with physical therapy. 3. Resume regular diet. 4. Case management following for discharge planning. Anticipate patient will be discharged to [facility]. 5. Lovenox for DVT prophylaxis. 6. Pepcid for gastritis prophylaxis. 7. Discontinue all IV analgesia and transition to oral analgesia only. The patient was seen and examined with Dr. Horne, who agrees with plan.
[2018-05-19] MEDS ORDERED: Docusate 100 MG CAP PO SCH (17:45)
[2018-05-19] MEDS ORDERED: Senokot 8.6 MG TAB PO SCH (17:45)
[2018-05-19] MEDS: Latanoprost 0.005% Ophth Soln 2.5 ml Bottle EA EYE SCH (20:04)
[2018-05-19] MEDS: Pravastatin Sodium 20 MG TAB PO SCH (20:07)
[2018-05-19] MEDS: DULoxetine 60 MG CAP PO SCH (20:07)
[2018-05-20] MEDS: Ibuprofen 200 MG TAB PO SCH (02:18)
[2018-05-20] MEDS: Acetaminophen 500 MG TAB PO SCH ×3 (02:19→14:50)
[2018-05-20 05:22] LABS: #Eosinphils 0.1 thou/uL (0.0-0.7); #Lymphocytes 2.2 thou/uL (1.20-3.40); #Monocytes 0.6 thou/uL (0.11-0.59); #Neutrophils 5.3 thou/uL (1.40-6.50); %Basophils 0.2 % (0.0-1.0); %Eosinophils 0.8 % (0.0-10.0); %Lymphocytes 26.3 % (21.0-51.0); %Monocytes 7.7 % (0.0-10.0); %Neutrophils 65.1 % (42.0-75.0); Hemoglobin 8.8 g/dL (12.0-16.0); Mean Corpuscular HGB CONC 33.1 g/dL (32.0-36.0); Mean Corpuscular Hemoglobin 31.4 pg (27.0-31.0); Mean Corpuscular Volume 94.8 fL (78.0-98.0); Mean Platelet Volume 7.4 fL (7.4-10.4); Platelet Count 189 thou/uL (130-400); RBC Distribution Width 12.8 % (11.5-14.5); Red Blood Cell (RBC) Count 2.79 mill/uL (4.20-5.40); White Blood Cell (WBC) Count 8.2 thou/uL (4.8-10.8)
[2018-05-20 05:50] LABS: Anion Gap 11 mmol/L (10-20); BUN (Urea Nitrogen) 39 mg/dL (9.8-20.1); Calc. Creatinine Clearance 53 mL/min (70-130); Calcium 8.9 mg/dL (7.8-10.44); Carbon Dioxide 25 mmol/L (23-31); Chloride 108 mmol/L (98-107); Estimated GFR-MDRD 31; Glucose 118 mg/dL (83-110); Phosphorus 4.7 mg/dL (2.3-4.7); Potassium 4.3 mmol/L (3.5-5.1); Sodium 140 mmol/L (136-145)
[2018-05-20] MEDS ORDERED: Sodium Chloride 0.45% 1,000 ML IV SCH (08:15)
[2018-05-20] MEDS: Famotidine/PF 20 mg/2ml Vial SLOW IVP SCH (08:39)
[2018-05-20] MEDS: Enoxaparin Sodium 40 MG/0.4 ML SYRINGE SC SCH (08:40)
[2018-05-20] MEDS ORDERED: Docusate 100 MG CAP PO SCH (09:00)
[2018-05-20] MEDS ORDERED: Senokot 8.6 MG TAB PO SCH (09:00)
[2018-05-20] MEDS ORDERED: Bisacodyl 10 MG SUPP PR SCH (09:00)
[2018-05-20] MEDS ORDERED: Polyethylene Glycol 3350 17 GM Packet PO SCH (09:00)
[2018-05-20] MEDS: Pregabalin 50 MG CAP PO SCH (10:49)
[2018-05-20] MEDS: Timolol 0.5% Ophth Soln 5 ml Bottle EA EYE SCH (12:23)
[2018-05-20 17:21] LABS: Anion Gap 9 mmol/L (10-20); BUN (Urea Nitrogen) 36 mg/dL (9.8-20.1); Calc. Creatinine Clearance 58 mL/min (70-130); Carbon Dioxide 26 mmol/L (23-31); Chloride 106 mmol/L (98-107); Estimated GFR-MDRD 34; Glucose 104 mg/dL (83-110); Potassium 4.3 mmol/L (3.5-5.1); Sodium 137 mmol/L (136-145)
[2018-05-20 20:29] VITALS: BP 115/70; TEMP 97.9
== END 2018-05-20 20:20 | DRG 494 ==
LOC: ERS 13:43 → SURG B 15:20
PROVIDERS: ADMIT Surgery; ATTEND Surgery
PROC: 0QSG04Z Reposition Right Tibia with Internal Fixation Device, Open Approach (ICD-10-PCS; principal; 2018-05-18)
PROC: 0QSJ04Z Reposition Right Fibula with Internal Fixation Device, Open Approach (ICD-10-PCS; 2018-05-18)
DX: S82.841A Displaced bimalleolar fracture of right lower leg, initial encounter for closed fracture (principal); N18.3 Chronic kidney disease, stage 3 (moderate); I12.9 Hypertensive chronic kidney disease with stage 1 through stage 4 chronic kidney disease, or unspecified chronic kidney disease; K21.9 Gastro-esophageal reflux disease without esophagitis; E78.5 Hyperlipidemia, unspecified; G89.11 Acute pain due to trauma; Z96.653 Presence of artificial knee joint, bilateral; W17.89XA Other fall from one level to another, initial encounter; Z79.899 Other long term (current) drug therapy; Z90.13 Acquired absence of bilateral breasts and nipples; Z88.8 Allergy status to other drugs, medicaments and biological substances
CPT/HCPCS: 27810; 36415; 76001; 80048; 80053; 83735; 84100; 85025; 85610; 85730; 93005; 93010; C1713; G0390; G8978-GP-CL; G8979-GP-CJ; G8987-GO-CL; G8988-GO-CI; J0131; J0670; J1100; J1650; J2001; J2250; J2405; J2704; J3010; S0028

== ENCOUNTER 2018-08-23 14:11 | Outpatient (CLI) | payer MEDICARE, OTHER ==
--- NOTE | 2018-08-23 16:15 | BD ---
Exam: DEXA Bone Density 08/23/18 HISTORY: 83-year-old postmenopausal female for screening. FINDINGS: Lumbar Spine: BMD (g/cm2) L1 1.050 T-Score: 0.5 L2 1.085 T-Score: 0.5 L3 1.121 T-Score: 0.3 L4 1.073 T-Score: 0.1 L1-L4 1.040 T-Score: 1.0 Femoral Neck: 0.709 T-Score: -1.3 Total proximal Femur: 1.014 T-Score: 0.6 Impression: Osteopenia. This patient has a 10 year WHO fracture risk for a major osteoporotic fracture of 16% and hip fracture of 3%. POS: TAISHA
== END 2018-08-23 14:12 | disposition home or self-care (01) ==
LOC: BICMAMMO 14:11
PROVIDERS: ATTEND Family Medicine
DX: Z13.820 Encounter for screening for osteoporosis (principal); M85.859 Other specified disorders of bone density and structure, unspecified thigh
CPT/HCPCS: 77080

== ENCOUNTER 2020-07-19 12:10 | Inpatient (IN) | payer MEDICARE, BC ==
[2020-07-19] MEDS ORDERED: Dexamethasone 10 MG/ML VIAL ONE (13:00)
[2020-07-19 13:01] LABS: #Lymphocytes 1.9 thou/uL (1.20-3.40); #Monocytes 0.4 thou/uL (0.11-0.59); #Neutrophils 3.7 thou/uL (1.40-6.50); %Basophils 0.1 % (0.0-1.0); %Eosinophils 0.1 % (0.0-10.0); %Lymphocytes 31.6 % (21.0-51.0); %Monocytes 6.8 % (0.0-10.0); %Neutrophils 61.3 % (42.0-75.0); Hemoglobin 10.3 g/dL (12.0-16.0); Mean Corpuscular HGB CONC 33.5 g/dL (32.0-36.0); Mean Corpuscular Hemoglobin 29.7 pg (27.0-31.0); Mean Corpuscular Volume 88.5 fL (78.0-98.0); Mean Platelet Volume 7.3 fL (7.4-10.4); Platelet Count 207 thou/uL (130-400); RBC Distribution Width 13.4 % (11.5-14.5); Red Blood Cell (RBC) Count 3.48 mill/uL (4.20-5.40)
--- NOTE | 2020-07-19 13:01 | RAD ---
RADIOGRAPH CHEST 1 VIEW: DATE: 07/19/2020 HISTORY: 85-year-old female with dyspnea FINDINGS: There are no airspace densities, pulmonary edema, pneumothorax, or cardiomegaly. The lateral costophr enic angles are sharp. Adjacent to the left lateral costophrenic angle, there is a small ill-defined density which may represent subsegmental atelectasis or scar. IMPRESSION: No compelling evidence of acute cardiopulmonary disease.
[2020-07-19 13:11] LABS: PTT 36.3 sec (22.9-36.1)
[2020-07-19 13:12] LABS: INR-International Normal Ratio 0.9; Prothrombin Time 12.6 sec (12.0-14.7)
[2020-07-19 13:24] LABS: ALT (SGPT) 10 U/L (8-55); AST (SGOT) 23 U/L (5-34); Albumin 3.8 g/dL (3.4-4.8); Alkaline Phosphatase 61 U/L (40-110); Anion Gap 15 mmol/L (10-20); BUN (Urea Nitrogen) 39 mg/dL (9.8-20.1); Bilirubin, Total 0.3 mg/dL (0.2-1.2); CK (CPK) 229 U/L (29-168); Calc. Creatinine Clearance 0 mL/min (70-130); Calcium 8.3 mg/dL (7.8-10.44); Carbon Dioxide 27 mmol/L (23-31); Chloride 98 mmol/L (98-107); Estimated GFR-MDRD 27; Globulin 2.7 g/dL (2.4-3.5); Glucose 109 mg/dL (83-110); Lipase 26 U/L (8-78); Potassium 3.6 mmol/L (3.5-5.1); Protein, Total 6.5 g/dL (6.0-8.3); Sodium 136 mmol/L (136-145)
--- NOTE | 2020-07-19 14:54 | CT ---
CT ANGIO OF CHEST PERFORMED WITH INTRAVENOUS CONTRAST ENHANCEMENT WITH 3D RECONSTRUCTIONS: HISTORY: Shortness of breath. FINDINGS: Lungs show some peripheral ground-glass opacities, mostly subpleural in location. There is a slightl y more prominent area in the right upper lobe. Some of the changes in the bases are felt to be on th e basis of reticular scarring, but some of these changes, particularly in the upper lobe regions, hav e more of an acute appearance. No definite significant mediastinal adenopathy. There are scattered mediastinal nodes which may just be more chronic reactive nodes. Surgical clips seen in the left axillary region. Nonspecific small axillary nodes are present. Coronary calcifications are present. There is good pulmonary artery opacification obtained. No CT evidence for pulmonary embolus. Visualized liver parenchyma shows no focal findings. A moderate hiatal hernia is seen. A small punc loyola calcification is seen within the left kidney. IMPRESSION: 1. Some ground-glass opacities in both lung kyle as discussed above. Not definitive for but tracy herron the possibility that this is representing early changes related to COVID pneumonia. 2. No CT evidence for pulmonary embolus. POS: MARIAA
[2020-07-19] MEDS ORDERED: Enoxaparin Sodium 60 MG/0.6 ML SYRINGE ONE (15:27)
[2020-07-19] MEDS ORDERED: cefTRIAXone\\ROCEPHIN 2 GM VIAL ONE (15:27)
[2020-07-19] MEDS ORDERED: Azithromycin 500 MG VIAL ONE (15:27)
[2020-07-19] MEDS ORDERED: Aspirin 325 MG TAB ONE (15:27)
[2020-07-19] MEDS ORDERED: Bisacodyl 5 MG TAB PO PRN (16:55)
--- NOTE | 2020-07-19 17:56 | HP ---
PRIMARY CARE PROVIDER: Quinten Shaffer MD CHIEF COMPLAINT: Shortness of breath. HISTORY OF PRESENT ILLNESS: Ms. Asif is a pleasant 85-year-old lady who was seen at [facility] on July 19, 2020. She reports that over the last 5 days, she has had chest tightness and shortness of breath that has been progressively worsening. She reports shortness of breath with exertion. She reports chills and fatigue. She reports the shortness of breath improves with rest. She went to an outside clinic today and was swabbed positive for COVID virus. She was then referred to the hospital because of increased work of breathing. REVIEW OF SYSTEMS: All systems were reviewed and found to be negative except for the pertinent positives mentioned above. PAST MEDICAL HISTORY: Gastroesophageal reflux disease, dyslipidemia, hypertension, chronic kidney disease. SURGICAL HISTORY: Bilateral total knee replacement, Achilles tendon surgery, and mastectomy. PSYCHIATRIC HISTORY: Depression. SOCIAL HISTORY: The patient denies tobacco use, alcohol use, or recreational drug use. FAMILY HISTORY: No family history of premature coronary artery disease. ALLERGIES: TRAMADOL. CURRENT MEDICATIONS: 1. Cymbalta. 2. Lyrica. 3. Pantoprazole. 4. Pravastatin. 5. Spironolactone. 6. Torsemide. Doses need to be clarified. PHYSICAL EXAMINATION: GENERAL: Ms. Asif is awake and alert, not in acute distress. VITAL SIGNS: Blood pressure is 122/44, pulse 66, respiratory rate 22, and oxygen saturation 99% on 2 L. Her room air oxygen saturation was reportedly 80%. She is currently afebrile. EYES: No scleral icterus. No conjunctival pallor. ENT: Moist mucosal membranes. No oropharyngeal erythema or exudates. NECK: Supple, nontender. Trachea is midline. RESPIRATORY: Accessory muscles of breathing are not active. Chest wall movements are symmetric bilaterally. Lung examination reveals occasional expiratory wheeze. CARDIOVASCULAR: S1 and S2 are heard, regular. Peripheral pulses palpable. ABDOMEN: Soft, nontender. Bowel sounds are heard. NEUROLOGIC: Cranial nerves 2 through 12 are intact. MUSCULOSKELETAL: Power is 5/5 in all 4 extremities. SKIN: No rashes or subcutaneous nodules. LYMPHATIC: No cervical lymphadenopathy. PSYCHIATRIC: Normal mood. Normal affect. The patient is oriented to person, place, and time. LABORATORY DATA: Ms. Asif's labs and investigations were reviewed. I reviewed her electrocardiogram, which shows normal sinus rhythm, no ST changes to suggest an acute coronary syndrome. I also reviewed her chest x-ray, which does not show any evidence of pulmonary infiltrates. CT angiogram of the chest did not show any evidence of pulmonary embolism. She had ground-glass opacities in both lung kyle, suggestive of early changes related to COVID pneumonia. She has normal white count, normocytic anemia with hemoglobin 10.3, normal platelet count. D-dimer elevated at 1.00. Normal electrolytes. Elevated creatinine of 1.80, last known creatinine was 1.71 on June 14, 2020. CK elevated at 229. LFTs normal. Troponin I and BNP are normal. ASSESSMENT AND PLAN: Ms. Asif is a pleasant 85-year-old lady, who was seen at [facility] on July 19, 2020. Her problem list includes: 1. COVID-19 pneumonia: Ms. Asif is presenting with her COVID-19 infection. She has received dexamethasone. She has also received Lovenox 1 mg/kg. Given her chronic kidney disease, we will start her on heparin from tomorrow afternoon. I will continue dexamethasone. I will start her on vitamin C and zinc. I will consult Infectious Disease Service. Further management depending on how she does. 2. Acute hypoxic respiratory failure: Continue p.r.n. oxygen. The patient reports feeling well after coming to the emergency room. 3. Chronic kidney disease stage 4: Stable. Monitor daily lytes and creatinine. 4. Gastroesophageal reflux disease: Continue Protonix. 5. Dyslipidemia: Continue statin once dose is clarified. 6. Congestive heart failure: Continue torsemide once dose is clarified. Many thanks for allowing me to participate in your patient's care. Please feel free to contact me with any questions or concerns. LEVEL OF RISK: High. LEVEL OF COMPLEXITY: High. Estimated length of stay in the hospital: Greater than two midnights. Job ID: [id number] [facility]
[2020-07-19 18:47] VITALS: BMI 38.0
[2020-07-19] MEDS ORDERED: Zinc Sulfate 220 MG CAP PO SCH (20:00)
[2020-07-19] MEDS ORDERED: Ascorbic Acid 500 mg Chewable Tablet PO SCH (20:00)
[2020-07-20 06:20] LABS: Anion Gap 14 mmol/L (10-20); BUN (Urea Nitrogen) 45 mg/dL (9.8-20.1); Calc. Creatinine Clearance 47 mL/min (70-130); Calcium 8.4 mg/dL (7.8-10.44); Carbon Dioxide 26 mmol/L (23-31); Chloride 103 mmol/L (98-107); Estimated GFR-MDRD 28; Glucose 135 mg/dL (83-110); Potassium 3.6 mmol/L (3.5-5.1); Sodium 139 mmol/L (136-145)
[2020-07-20 06:51] LABS: #Basophils 0.1 thou/uL (0.0-0.2); #Lymphocytes 1.5 thou/uL (1.20-3.40); #Monocytes 0.4 thou/uL (0.11-0.59); #Neutrophils 2.8 thou/uL (1.40-6.50); %Basophils 1.3 % (0.0-1.0); %Eosinophils 0.2 % (0.0-10.0); %Lymphocytes 31.1 % (21.0-51.0); %Monocytes 7.9 % (0.0-10.0); %Neutrophils 59.5 % (42.0-75.0); Hemoglobin 11.1 g/dL (12.0-16.0); Mean Corpuscular HGB CONC 32.7 g/dL (32.0-36.0); Mean Corpuscular Hemoglobin 29.3 pg (27.0-31.0); Mean Corpuscular Volume 89.6 fL (78.0-98.0); Mean Platelet Volume 8.2 fL (7.4-10.4); Platelet Count 172 thou/uL (130-400); RBC Distribution Width 13.5 % (11.5-14.5); Red Blood Cell (RBC) Count 3.78 mill/uL (4.20-5.40); White Blood Cell (WBC) Count 4.7 thou/uL (4.8-10.8)
[2020-07-20] MEDS: Zinc Sulfate 220 MG CAP PO SCH (08:34)
[2020-07-20] MEDS: Ascorbic Acid 500 mg Chewable Tablet PO SCH (08:34)
[2020-07-20] MEDS ORDERED: FLU VACC QS2020-21(65YR UP)/PF 240 MCG/0.7 ML SYRINGE IM ONE (09:00)
[2020-07-20] MEDS ORDERED: Polyethylene Glycol 3350 17 GM Packet PO PRN (10:00)
[2020-07-20] MEDS ORDERED: Guaifenesin DM 100-10/5 ML UDCUP PO PRN (10:03)
[2020-07-20] MEDS ORDERED: Senokot S 8.6-50 MG TAB PO PRN (10:03)
--- NOTE | 2020-07-20 10:07 | PDOC.HOSPP ---
- Subjective Encounter Date: 07/20/20 Encounter Time: 10:07 Subjective: Patient seen and examined. No new complaints. No overnight events. Reports feeling fine. Denies any SOB, cough or wheezing. Denies any chest pain, heart palpitations, abdominal pain or diarrhea. - Objective Vital Signs & Weight: Vital Signs (12 hours) Temp Pulse Resp BP Pulse Ox 07/20/20 04:00 97.7 F 64 18 115/67 95 07/20/20 00:00 97.5 F L 59 L 18 108/63 96 Weight Weight 268 lb 15.423 oz Result Diagrams: 07/20/20 05:42 07/20/20 05:42 Hospitalist ROS - Review of Systems Constitutional: denies: fever, chills Respiratory: denies: cough, shortness of breath, hemoptysis Cardiovascular: denies: chest pain, palpitations, edema, light headedness Gastrointestinal: denies: nausea, vomiting, abdominal pain, diarrhea Genitourinary: denies: dysuria Neurological: denies: weakness, numbness, incoordination, change in speech All other systems reviewed; all pertinent +/- noted in HPI/Subj - Medication Medications: Active Medications Generic Name Dose Route Start Last Admin Trade Name Freq PRN Reason Stop Dose Admin Ascorbic Acid 1,000 mg 07/20/20 09:00 07/20/20 08:34 Ascorbic Acid 500 Mg Chewable Tablet PO 1,000 mg DAILY TRISHA Administration Zinc Sulfate 220 mg 07/20/20 09:00 07/20/20 08:34 Zinc Sulfate 220 Mg Cap PO 220 mg DAILY TRISHA Administration - Exam General Appearance: NAD, awake alert. negative: ill appearing General - other findings: appears comfortable Eye: anicteric sclera ENT: normocephalic atraumatic Neck: supple, symmetric Heart: RRR, no murmur, no gallops, no rubs, normal peripheral pulses Respiratory: CTAB, no wheezes, no rales, no ronchi, no tachypnea, normal percussion Gastrointestinal: soft, non-tender, normal bowel sounds, no guarding, no rigidity Extremities: no cyanosis, no edema Neurological: no focal deficits Psychiatric: normal affect, A&O x 3 Hosp A/P (1) Pneumonia due to COVID-19 virus Code(s): U07.1 - COVID-19; J12.89 - OTHER VIRAL PNEUMONIA Status: Acute (2) Acute respiratory failure with hypoxia Code(s): J96.01 - ACUTE RESPIRATORY FAILURE WITH HYPOXIA Status: Acute (3) CKD (chronic kidney disease), stage IV Code(s): N18.4 - CHRONIC KIDNEY DISEASE, STAGE 4 (SEVERE) Status: Chronic (4) GERD (gastroesophageal reflux disease) Code(s): K21.9 - GASTRO-ESOPHAGEAL REFLUX DISEASE WITHOUT ESOPHAGITIS Status: Chronic (5) Dyslipidemia Code(s): E78.5 - HYPERLIPIDEMIA, UNSPECIFIED Status: Chronic (6) CHF (congestive heart failure) Code(s): I50.9 - HEART FAILURE, UNSPECIFIED Status: Chronic - Plan # Covid Pneumonia VSS, 2L NC 95% Continue azithromycin and rocephin Continue zinc and Vit C and dexamethasone and heparin ID consulted Isolation precautions #Acute hypoxic respiratory failure Likely related to problem #1 #CKD IV appears stable. # GERD Continue PPI # Dyslipidemia Continue Statin #CHF Chronic, stable. CXR no acute process. Continue home meds. Other chronic conditions per H&P. Discussed case with Dr. Fried.
[2020-07-20] MEDS: Heparin 5,000 UNITS/ML VIAL SC SCH ×2 (15:08→21:32)
[2020-07-20] MEDS: Azithromycin 500 MG in Sodium Chloride 0.9% 250 ML 250 ML IVPB SCH (15:09)
[2020-07-20] MEDS: Ondansetron ODT 4 MG TAB PO PRN ×2 (15:22→21:42)
[2020-07-20 16:04] LABS: Bacteria/HPF None Seen HPF (None Seen); Bilirubin Negative (Negative); Blood, Urine Negative (Negative); Clarity Clear (Clear); Glucose, Urine (Dipstick) Normal (Negative); Ketone, Urine Negative (Negative); Leukocyte Negative Leu/uL (Negative); Nitrite Negative (Negative); Protein, Urine (Dipstick) 20 mg/dL (Neg-Trace); RBC/HPF 0-3 HPF (0-3); Specific Gravity, Urine 1.021 (1.002-1.036); Squamous Epithelial 0-3 HPF (0-3); Urobilinogen Normal mg/dL (Less than 2); WBC/HPF 0-3 HPF (0-3)
--- NOTE | 2020-07-20 17:11 | CON ---
DATE OF CONSULTATION: 07/20/2020 REASON FOR CONSULTATION: COVID pneumonia. HISTORY OF PRESENT ILLNESS: An 85-year-old with history of hyperlipidemia, hypertension, and degenerative joint disease, who has had respiratory symptoms for the past 5 to 6 days with worsening dyspnea, nausea, and some vomiting. No headaches. No visual symptoms. No abdominal pain or diarrhea. No genitourinary symptoms. No joint symptoms. No neurological symptoms. On arrival, BP 100/54, pulse 79, respiratory rate 24, temperature 98.9, and O2 saturation 96 on 4 L. The exam was described as unremarkable. She appeared alert. Other findings on admission; white cell count 6.0 and total lymphocyte count was 1.9. D-dimer was 1. Creatinine 1.8 and 1.76 with GFR of 27. CK is 229. Liver profile normal. Albumin 3.8. The patient has been started on azithromycin, ceftriaxone, and Decadron. Right now, she is still nauseated, not feeling very well, tachypneic. REVIEW OF SYSTEMS: Ten-point review of systems as above. MEDICAL HISTORY: 1. Hyperlipidemia. 2. Hypertension. 3. Degenerative joint disease. 4. Joint replacements, right and left knee. 5. Achilles tendon repair. 6. Mastectomy for breast cancer. SOCIAL HISTORY: Never smoker. FAMILY HISTORY: Noncontributory. ALLERGIES: TRAMADOL. CURRENT MEDICATION LIST: 1. Vitamin C. 2. Azithromycin. 3. Rocephin. 4. Vitamin D. 5. Decadron. 6. Mirtazapine. 7. Cozaar. 8. Theragran. 9. Robitussin. 10. Heparin. 11. Pantoprazole. 12. Pregabalin. 13. Zocor. 14. Torsemide. PHYSICAL EXAMINATION: VITAL SIGNS: Afebrile, O2 saturation 98 with 4 L and she was 91 with 2 L, pulse 79, respiratory rate 24, and BP 120/63. SKIN: No areas of skin breakdown. Peripheral IV access. Voiding in the toilet. A little bit diaphoretic. HEENT: Ocular movements conjugate. No lymphadenopathy. Oral cavity, a little bit dry. NECK: Supple. LUNGS: Symmetric air entry. No obvious crackles or wheezing. HEART: S1 and S2. Regular rate. No S3 or S4. ABDOMEN: Soft, not distended or tender. No ascites. No bladder distention. EXTREMITIES: No joint inflammatory activity. No edema. Pulses 1+ in dorsalis pedis. Plantar responses are flexor. No clonus. Moves all extremities equally. NEUROLOGIC: Cognitive function appears to be intact. LABORATORY DATA: White cell count is at 4.7, hemoglobin 11, and lymphocytes are 1.5. CRP 3.34. Ferritin 57.41. CT of chest with some ground-glass opacities, but not very intense, no pulmonary embolism. ASSESSMENT: 1. Hypertension. 2. Hyperlipidemia. 3. COVID pneumonia. Although not a lot of infiltrates, she does have quite a bit of desaturation. This is the 6th day of illness. She is at high risk for further deterioration going forward. We will go ahead and give her convalescent plasma. She is not eligible for remdesivir because of her renal function. Continue Decadron and heparin. Job ID: [id number]
[2020-07-20] MEDS: cefTRIAXone\\ROCEPHIN 1 GM in Sodium Chloride 0.9% 100 ML IVPB SCH (17:58)
[2020-07-20] MEDS ORDERED: Non-Formulary Item 1 EACH (Glucosamine/D3/Boswellia Serra [Osteo Bi-Flex One Per Day] 1 T PO SCH (21:00)
[2020-07-20] MEDS: Simvastatin 10 MG TAB PO SCH (21:31)
[2020-07-20] MEDS: Multivitamin W/ Minerals 1 TAB PO SCH (21:31)
[2020-07-20] MEDS: Calcium Carbonate 600 MG + Vit D TAB PO SCH (21:31)
[2020-07-20] MEDS: Pregabalin 50 MG CAP PO SCH (21:31)
[2020-07-20] MEDS: Torsemide 20 MG TAB PO SCH (21:31)
[2020-07-20] MEDS: Mirtazapine 15 MG TAB PO SCH (21:32)
[2020-07-20] MEDS: Cholecalciferol 1,000 UNITS (25 MCG) TAB PO SCH (21:32)
[2020-07-20] MEDS: Latanoprost 0.005% Ophth Soln 2.5 ml Bottle EA EYE SCH (21:32)
[2020-07-21 05:55] LABS: #Monocytes 0.4 thou/uL (0.11-0.59); #Neutrophils 5.2 thou/uL (1.40-6.50); %Basophils 0.1 % (0.0-1.0); %Eosinophils 0.1 % (0.0-10.0); %Lymphocytes 15.2 % (21.0-51.0); %Monocytes 5.7 % (0.0-10.0); Hemoglobin 9.8 g/dL (12.0-16.0); Mean Corpuscular HGB CONC 33.6 g/dL (32.0-36.0); Mean Corpuscular Hemoglobin 29.7 pg (27.0-31.0); Mean Corpuscular Volume 88.3 fL (78.0-98.0); Mean Platelet Volume 8.1 fL (7.4-10.4); Platelet Count 200 thou/uL (130-400); RBC Distribution Width 13.4 % (11.5-14.5); Red Blood Cell (RBC) Count 3.31 mill/uL (4.20-5.40); White Blood Cell (WBC) Count 6.6 thou/uL (4.8-10.8)
[2020-07-21 06:19] LABS: Anion Gap 13 mmol/L (10-20); BUN (Urea Nitrogen) 28 mg/dL (9.8-20.1); Calc. Creatinine Clearance 60 mL/min (70-130); Calcium 8.5 mg/dL (7.8-10.44); Carbon Dioxide 28 mmol/L (23-31); Chloride 99 mmol/L (98-107); Estimated GFR-MDRD 37; Glucose 116 mg/dL (83-110); Potassium 3.3 mmol/L (3.5-5.1); Sodium 137 mmol/L (136-145)
[2020-07-21] MEDS ORDERED: Benzonatate 100 MG CAP PO PRN (07:59)
[2020-07-21] MEDS ORDERED: Loperamide HCl 2 MG CAP PO PRN (07:59)
[2020-07-21] MEDS ORDERED: Diabetic Tussin 200 MG/10 ML UDCUP PO PRN (07:59)
[2020-07-21] MEDS ORDERED: Sodium Chloride 0.65% Nasal 44 ML BOT EA NARE PRN (07:59)
[2020-07-21] MEDS ORDERED: cloNIDine 0.1 MG TAB PO PRN (07:59)
[2020-07-21] MEDS ORDERED: Labetalol HCl 100 MG/20 ML VIAL SLOW IVP PRN (07:59)
[2020-07-21] MEDS ORDERED: Loratadine 10 MG TAB PO PRN (07:59)
[2020-07-21] MEDS ORDERED: Melatonin 3 MG TAB PO PRN (07:59)
[2020-07-21] MEDS ORDERED: Metoclopramide HCl 10 MG/2 ML VIAL IVP PRN (07:59)
[2020-07-21] MEDS ORDERED: Calcium Carbonate 500 MG ChewTAB PO PRN (07:59)
[2020-07-21] MEDS ORDERED: Cepastat Lozenges 1 LOZ PO PRN (07:59)
[2020-07-21] MEDS ORDERED: Potassium Chloride 20 MEQ TAB PO SCH (08:00)
[2020-07-21] MEDS: Ascorbic Acid 500 mg Chewable Tablet PO SCH (09:43)
[2020-07-21] MEDS: Fish Oil 1,000 MG CAP PO SCH (09:44)
[2020-07-21] MEDS: DULoxetine 60 MG CAP PO SCH (09:44)
[2020-07-21] MEDS: Heparin 5,000 UNITS/ML VIAL SC SCH ×3 (09:44→20:16)
[2020-07-21] MEDS: Calcium Carbonate 600 MG + Vit D TAB PO SCH ×2 (09:45→20:16)
[2020-07-21] MEDS: Zinc Sulfate 220 MG CAP PO SCH (09:45)
[2020-07-21] MEDS: Losartan 25 MG TAB PO SCH ×3 (09:45→09:51)
[2020-07-21] MEDS: Torsemide 20 MG TAB PO SCH ×2 (09:49→20:14)
[2020-07-21] MEDS: Docusate 100 MG CAP PO SCH (09:49)
[2020-07-21] MEDS: Timolol 0.5% Ophth Soln 5 ml Bottle EA EYE SCH (09:50)
[2020-07-21] MEDS: Pregabalin 50 MG CAP PO SCH ×2 (09:50→20:15)
[2020-07-21] MEDS: Dexamethasone 4 mg/ml Vial SLOW IVP SCH (09:52)
--- NOTE | 2020-07-21 11:45 | PDOC.HOSPP ---
- Subjective Encounter Date: 07/21/20 Encounter Time: 08:00 Subjective: Patient seen and examined. No new complaints. No overnight events - Objective Vital Signs & Weight: Vital Signs (12 hours) Temp Pulse Pulse Resp BP BP BP 07/21/20 09:50 65 120/70 07/21/20 03:54 98.7 F 65 16 146/64 H 07/21/20 01:25 98.8 F 69 16 155/65 H Pulse Ox 07/21/20 09:50 07/21/20 03:54 94 L 07/21/20 01:25 94 L Weight Weight 268 lb 15.423 oz I&O: 07/20/20 07/21/20 07/22/20 06:59 06:59 06:59 Intake Total 940 Balance 940 Result Diagrams: 07/21/20 05:18 07/21/20 05:18 Hospitalist ROS - Review of Systems Constitutional: reports: weakness, malaise. denies: fever, chills, sweats, other ENT: denies: ear pain, ear discharge, nose pain, nose discharge, nose congestion, mouth pain, mouth swelling, throat pain, throat swelling, other Respiratory: denies: cough, dry, shortness of breath, hemoptysis, SOB with excertion, pleuritic pain, sputum, wheezing, other Cardiovascular: denies: chest pain, palpitations, orthopnea, paroxysmal noc. dyspnea, edema, light headedness, other Gastrointestinal: denies: nausea, vomiting, abdominal pain, diarrhea, constipation, melena, hematochezia, other Genitourinary: denies: dysuria, frequency, incontinence, hematuria, retention, other Musculoskeletal: denies: neck pain, shoulder pain, arm pain, back pain, hand pain, leg pain, foot pain, other - Medication Medications: Active Medications Generic Name Dose Route Start Last Admin Trade Name Freq PRN Reason Stop Dose Admin Ascorbic Acid 1,000 mg 07/20/20 09:00 07/21/20 09:43 Ascorbic Acid 500 Mg Chewable Tablet PO 1,000 mg DAILY TRISHA Administration Calcium/Vitamin D 1 tab 07/20/20 21:00 07/21/20 09:45 Calcium Carbonate 600 Mg + Vit D Tab PO 1 tab BID TRISHA Administration Cholecalciferol 1,000 units 07/20/20 21:00 07/20/20 21:32 Cholecalciferol 1,000 Units (25 Mcg) Tab PO 1,000 units QPM TRISHA Administration Dexamethasone 6 mg 07/21/20 09:00 07/21/20 09:52 Dexamethasone 4 Mg/Ml Vial SLOW IVP 6 mg DAILY TRISHA Administration Docusate Sodium 100 mg 07/21/20 09:00 07/21/20 09:49 Docusate 100 Mg Cap PO 100 mg DAILY TRISHA Administration Duloxetine HCl 60 mg 07/21/20 09:00 07/21/20 09:44 Duloxetine 60 Mg Cap PO 60 mg DAILY TRISHA Administration Fish Oil 1,000 mg 07/21/20 09:00 07/21/20 09:44 Fish Oil 1,000 Mg Cap PO 1,000 mg QAM TRISHA Administration Heparin Sodium (Porcine) 5,000 units 07/20/20 15:00 07/21/20 09:44 Heparin 5,000 Units/Ml Vial SC 5,000 units TID TRISHA Administration Ceftriaxone Sodium 1 gm/ 100 mls @ 200 mls/hr 07/20/20 15:00 07/20/20 17:58 Sodium Chloride IVPB 100 mls Q24HR@1500 TRISHA Administration Azithromycin 500 mg/ Sodium 250 mls @ 250 mls/hr 07/20/20 16:00 07/20/20 15:09 Chloride IVPB 250 mls 1600 TRISHA Administration Iron/Minerals/Multivitamins 1 tab 07/20/20 21:00 07/20/20 21:31 Multivitamin W/ Minerals 1 Tab PO 1 tab HS TRISHA Administration Latanoprost 1 drop 07/20/20 21:00 07/20/20 21:32 Latanoprost 0.005% Ophth Soln 2.5 Ml Bottle EA EYE 1 drp HS TRISHA Administration Losartan Potassium 50 mg 07/21/20 09:00 07/21/20 09:51 Losartan 25 Mg Tab PO 50 mg DAILY TRISHA Administration Mirtazapine 15 mg 07/20/20 21:00 07/20/20 21:32 Mirtazapine 15 Mg Tab PO 15 mg HS TRISHA Administration Ondansetron HCl 4 mg 07/20/20 10:03 07/20/20 21:42 Ondansetron Odt 4 Mg Tab PO 4 mg Q6H PRN Administration Nausea/Vomiting Pantoprazole Sodium 40 mg 07/21/20 09:00 07/21/20 09:50 Pantoprazole 40 Mg Tab PO 40 mg DAILY TRISHA Administration Pregabalin 50 mg 07/20/20 21:00 07/21/20 09:50 Pregabalin 50 Mg Cap PO 50 mg BID TRISHA Administration Simvastatin 10 mg 07/20/20 21:00 07/20/20 21:31 Simvastatin 10 Mg Tab PO 10 mg HS TRISHA Administration Timolol Maleate 1 drop 07/21/20 09:00 07/21/20 09:50 Timolol 0.5% Ophth Soln 5 Ml Bottle EA EYE 1 drp DAILY TRISHA Administration Torsemide 20 mg 07/20/20 21:00 07/21/20 09:49 Torsemide 20 Mg Tab PO 20 mg BID TRISHA Administration Zinc Sulfate 220 mg 07/20/20 09:00 07/21/20 09:45 Zinc Sulfate 220 Mg Cap PO 220 mg DAILY TRISHA Administration - Exam General Appearance: NAD, awake alert Eye: PERRL, anicteric sclera ENT: normocephalic atraumatic, no oropharyngeal lesions Neck: supple, symmetric, no JVD, no thyromegaly Heart: RRR, no murmur, no gallops, no rubs Respiratory: CTAB, no wheezes, no rales, no ronchi Respiratory - other findings: Reduced air entry at base Gastrointestinal: soft, non-tender, non-distended, normal bowel sounds Extremities: no cyanosis, no clubbing, no edema Skin: normal turgor, no lesions Neurological: no focal deficits Musculoskeletal: normal tone, normal strength Psychiatric: normal affect, normal behavior Hosp A/P (1) Acute respiratory failure with hypoxia Code(s): J96.01 - ACUTE RESPIRATORY FAILURE WITH HYPOXIA Status: Acute (2) Acute renal failure superimposed on stage 3 chronic kidney disease Code(s): N17.9 - ACUTE KIDNEY FAILURE, UNSPECIFIED; N18.30 - CHRONIC KIDNEY DISEASE, STAGE 3 UNSPECIFIED Status: Acute Qualifiers: Chronic kidney disease stage 3 subtype: stage 3b (GFR 30-44) (3) Pneumonia due to COVID-19 virus Code(s): U07.1 - COVID-19; J12.89 - OTHER VIRAL PNEUMONIA Status: Acute (4) CHF (congestive heart failure) Code(s): I50.9 - HEART FAILURE, UNSPECIFIED Status: Chronic Qualifiers: Heart failure type: diastolic Heart failure chronicity: chronic Qualified Code(s): I50.32 - Chronic diastolic (congestive) heart failure (5) Dyslipidemia Code(s): E78.5 - HYPERLIPIDEMIA, UNSPECIFIED Status: Chronic (6) GERD (gastroesophageal reflux disease) Code(s): K21.9 - GASTRO-ESOPHAGEAL REFLUX DISEASE WITHOUT ESOPHAGITIS Status: Chronic Qualifiers: Esophagitis presence: without esophagitis Qualified Code(s): K21.9 - Gastro-esophageal reflux disease without esophagitis (7) Obesity (BMI 30-39.9) Code(s): E66.9 - OBESITY, UNSPECIFIED Status: Chronic - Plan old records reviewed/req, PT/OT, respiratory therapy Currently on antibiotic Continue vitamin supplementation Wean off oxygen as tolerated Continue PT OT Expecting discharge soon
[2020-07-21] MEDS: cefTRIAXone\\ROCEPHIN 1 GM in Sodium Chloride 0.9% 100 ML IVPB SCH (15:06)
[2020-07-21] MEDS: Azithromycin 500 MG in Sodium Chloride 0.9% 250 ML 250 ML IVPB SCH (18:12)
[2020-07-21] MEDS: Multivitamin W/ Minerals 1 TAB PO SCH (20:14)
[2020-07-21] MEDS: Simvastatin 10 MG TAB PO SCH (20:16)
[2020-07-21] MEDS: Mirtazapine 15 MG TAB PO SCH (20:16)
[2020-07-21] MEDS: Cholecalciferol 1,000 UNITS (25 MCG) TAB PO SCH (20:16)
[2020-07-21] MEDS: Latanoprost 0.005% Ophth Soln 2.5 ml Bottle EA EYE SCH (20:17)
[2020-07-22 07:01] LABS: Calcium 9.6 mg/dL (7.8-10.44); Carbon Dioxide 21 mmol/L (23-31); Chloride 99 mmol/L (98-107); Potassium 4.3 mmol/L (3.5-5.1); Sodium 137 mmol/L (136-145)
[2020-07-22 07:06] LABS: Glucose 97 mg/dL (83-110)
[2020-07-22 07:09] LABS: Anion Gap 21 mmol/L (10-20)
[2020-07-22 07:10] LABS: BUN (Urea Nitrogen) 31 mg/dL (9.8-20.1); Calc. Creatinine Clearance 55 mL/min (70-130); Estimated GFR-MDRD 34
[2020-07-22] MEDS: Docusate 100 MG CAP PO SCH (08:55)
[2020-07-22] MEDS: Dexamethasone 4 mg/ml Vial SLOW IVP SCH (08:55)
[2020-07-22] MEDS: DULoxetine 60 MG CAP PO SCH (08:55)
[2020-07-22] MEDS: Calcium Carbonate 600 MG + Vit D TAB PO SCH ×2 (08:55→21:51)
[2020-07-22] MEDS: Pregabalin 50 MG CAP PO SCH ×2 (08:55→21:49)
[2020-07-22] MEDS: Ascorbic Acid 500 mg Chewable Tablet PO SCH (08:55)
[2020-07-22] MEDS: Heparin 5,000 UNITS/ML VIAL SC SCH ×3 (08:56→21:48)
[2020-07-22] MEDS: Torsemide 20 MG TAB PO SCH ×2 (08:57→21:54)
[2020-07-22] MEDS: Timolol 0.5% Ophth Soln 5 ml Bottle EA EYE SCH (08:57)
[2020-07-22] MEDS: Fish Oil 1,000 MG CAP PO SCH (08:57)
[2020-07-22] MEDS: Zinc Sulfate 220 MG CAP PO SCH (08:57)
[2020-07-22 09:45] LABS: Band 10 % (5-11); Hemoglobin 10.3 g/dL (12.0-16.0); Lymphocytes 9 % (21-51); MDiff Complete? YES; Mean Corpuscular HGB CONC 32.7 g/dL (32.0-36.0); Mean Corpuscular Hemoglobin 29.2 pg (27.0-31.0); Mean Corpuscular Volume 89.2 fL (78.0-98.0); Mean Platelet Volume 8.1 fL (7.4-10.4); Monocytes 8 % (0-10); Neutrophil 73 % (42-75); Platelet Count 159 thou/uL (130-400); Platelet Morphology Comment Appears Adequate; RBC Distribution Width 13.4 % (11.5-14.5); RBC Morphology Normal; Red Blood Cell (RBC) Count 3.53 mill/uL (4.20-5.40); White Blood Cell (WBC) Count 5.5 thou/uL (4.8-10.8)
--- NOTE | 2020-07-22 11:10 | PDOC.HOSPP ---
- Subjective Encounter Date: 07/22/20 Encounter Time: 08:00 Subjective: Subjectively patient is feeling very weak, she has not ambulated in her room, she is still on 2 L nasal cannula oxygen, she has a dry cough, - Objective Vital Signs & Weight: Vital Signs (12 hours) Temp Pulse Resp BP Pulse Ox 07/22/20 08:57 71 07/22/20 04:30 98.4 F 71 18 120/81 96 07/22/20 00:00 98.4 F 52 L 20 136/67 95 Weight Weight 268 lb 15.423 oz I&O: 07/21/20 07/22/20 07/23/20 06:59 06:59 06:59 Intake Total 940 600 Balance 940 600 Result Diagrams: 07/22/20 07:57 07/22/20 06:30 Hospitalist ROS - Review of Systems Constitutional: reports: weakness. denies: fever, chills, sweats, malaise, other ENT: denies: ear pain, ear discharge, nose pain, nose discharge, nose congestion, mouth pain, mouth swelling, throat pain, throat swelling, other Respiratory: reports: cough, SOB with excertion. denies: dry, shortness of breath, hemoptysis, pleuritic pain, sputum, wheezing, other Cardiovascular: denies: chest pain, palpitations, orthopnea, paroxysmal noc. dyspnea, edema, light headedness, other Gastrointestinal: denies: nausea, vomiting, abdominal pain, diarrhea, constipation, melena, hematochezia, other Genitourinary: denies: dysuria, frequency, incontinence, hematuria, retention, other Musculoskeletal: denies: neck pain, shoulder pain, arm pain, back pain, hand pain, leg pain, foot pain, other - Medication Medications: Active Medications Generic Name Dose Route Start Last Admin Trade Name Freq PRN Reason Stop Dose Admin Ascorbic Acid 1,000 mg 07/20/20 09:00 07/22/20 08:55 Ascorbic Acid 500 Mg Chewable Tablet PO 1,000 mg DAILY TRISHA Administration Calcium/Vitamin D 1 tab 07/20/20 21:00 07/22/20 08:55 Calcium Carbonate 600 Mg + Vit D Tab PO 1 tab BID TRISHA Administration Cholecalciferol 1,000 units 07/20/20 21:00 07/21/20 20:16 Cholecalciferol 1,000 Units (25 Mcg) Tab PO 1,000 units QPM TRISHA Administration Dexamethasone 6 mg 07/21/20 09:00 07/22/20 08:55 Dexamethasone 4 Mg/Ml Vial SLOW IVP 6 mg DAILY TRISHA Administration Docusate Sodium 100 mg 07/21/20 09:00 07/22/20 08:55 Docusate 100 Mg Cap PO 100 mg DAILY TRISHA Administration Duloxetine HCl 60 mg 07/21/20 09:00 07/22/20 08:55 Duloxetine 60 Mg Cap PO 60 mg DAILY TRISHA Administration Fish Oil 1,000 mg 07/21/20 09:00 07/22/20 08:57 Fish Oil 1,000 Mg Cap PO 1,000 mg QAM TRISHA Administration Heparin Sodium (Porcine) 5,000 units 07/20/20 15:00 07/22/20 08:56 Heparin 5,000 Units/Ml Vial SC 5,000 units TID TRISHA Administration Ceftriaxone Sodium 1 gm/ 100 mls @ 200 mls/hr 07/20/20 15:00 07/21/20 15:06 Sodium Chloride IVPB 100 mls Q24HR@1500 TRISHA Administration Azithromycin 500 mg/ Sodium 250 mls @ 250 mls/hr 07/20/20 16:00 07/21/20 1 8:12 Chloride IVPB 250 mls 1600 TRISHA Administration Iron/Minerals/Multivitamins 1 tab 07/20/20 21:00 07/21/20 20:14 Multivitamin W/ Minerals 1 Tab PO 1 tab HS TRISHA Administration Latanoprost 1 drop 07/20/20 21:00 07/21/20 20:17 Latanoprost 0.005% Ophth Soln 2.5 Ml Bottle EA EYE 1 drp HS TRISHA Administration Losartan Potassium 50 mg 07/21/20 09:00 07/21/20 09:51 Losartan 25 Mg Tab PO 50 mg DAILY TRISHA Administration Mirtazapine 15 mg 07/20/20 21:00 07/21/20 20:16 Mirtazapine 15 Mg Tab PO 15 mg HS TRISHA Administration Ondansetron HCl 4 mg 07/20/20 10:03 07/20/20 21:42 Ondansetron Odt 4 Mg Tab PO 4 mg Q6H PRN Administration Nausea/Vomiting Pantoprazole Sodium 40 mg 07/21/20 09:00 07/22/20 08:55 Pantoprazole 40 Mg Tab PO 40 mg DAILY TRISHA Administration Pregabalin 50 mg 07/20/20 21:00 07/22/20 08:55 Pregabalin 50 Mg Cap PO 50 mg BID TRISHA Administration Simvastatin 10 mg 07/20/20 21:00 07/21/20 20:16 Simvastatin 10 Mg Tab PO 10 mg HS TRISHA Administration Timolol Maleate 1 drop 07/21/20 09:00 07/22/20 08:57 Timolol 0.5% Ophth Soln 5 Ml Bottle EA EYE 1 drp DAILY TRISHA Administration Torsemide 20 mg 07/20/20 21:00 07/22/20 08:57 Torsemide 20 Mg Tab PO 20 mg BID TRISHA Administration Zinc Sulfate 220 mg 07/20/20 09:00 07/22/20 08:57 Zinc Sulfate 220 Mg Cap PO 220 mg DAILY TRISHA Administration - Exam General Appearance: NAD, awake alert Eye: PERRL, anicteric sclera ENT: normocephalic atraumatic, no oropharyngeal lesions Neck: supple, symmetric, no JVD, no thyromegaly Respiratory: no wheezes, no rales, no ronchi Respiratory - other findings: Air entry reduced at base Gastrointestinal: soft, non-tender, non-distended, normal bowel sounds Extremities: no cyanosis, no clubbing, no edema Skin: normal turgor, no lesions Neurological: no focal deficits Musculoskeletal: normal tone, normal strength Psychiatric: normal affect, normal behavior Hosp A/P (1) Acute respiratory failure with hypoxia Code(s): J96.01 - ACUTE RESPIRATORY FAILURE WITH HYPOXIA Status: Acute (2) Acute renal failure superimposed on stage 3 chronic kidney disease Code(s): N17.9 - ACUTE KIDNEY FAILURE, UNSPECIFIED; N18.30 - CHRONIC KIDNEY DISEASE, STAGE 3 UNSPECIFIED Status: Acute Qualifiers: Chronic kidney disease stage 3 subtype: stage 3b (GFR 30-44) (3) Pneumonia due to COVID-19 virus Code(s): U07.1 - COVID-19; J12.89 - OTHER VIRAL PNEUMONIA Status: Acute (4) CHF (congestive heart failure) Code(s): I50.9 - HEART FAILURE, UNSPECIFIED Status: Chronic Qualifiers: Heart failure type: diastolic Heart failure chronicity: chronic Qualified Code(s): I50.32 - Chronic diastolic (congestive) heart failure (5) Dyslipidemia Code(s): E78.5 - HYPERLIPIDEMIA, UNSPECIFIED Status: Chronic (6) GERD (gastroesophageal reflux disease) Code(s): K21.9 - GASTRO-ESOPHAGEAL REFLUX DISEASE WITHOUT ESOPHAGITIS Status: Chronic Qualifiers: Esophagitis presence: without esophagitis Qualified Code(s): K21.9 - Gastro-esophageal reflux disease without esophagitis (7) Obesity (BMI 30-39.9) Code(s): E66.9 - OBESITY, UNSPECIFIED Status: Chronic (8) Glaucoma Code(s): H40.9 - UNSPECIFIED GLAUCOMA Status: Chronic - Plan old records reviewed/req, plan discussed w/ family, continue antibiotics, respiratory therapy Currently on antibiotic Continue vitamin supplementation Wean off oxygen as tolerated Continue PT OT Expecting discharge soon I have updated plan of care to patient's Will walk her in the room and if she does well then will consider discharge if she does not need any oxygen
[2020-07-22] MEDS: Acetaminophen 325 MG TAB PO PRN (12:17)
[2020-07-22] MEDS: cefTRIAXone\\ROCEPHIN 1 GM in Sodium Chloride 0.9% 100 ML IVPB SCH (14:07)
[2020-07-22] MEDS: Losartan 25 MG TAB PO SCH (14:07)
[2020-07-22] MEDS: Azithromycin 500 MG in Sodium Chloride 0.9% 250 ML 250 ML IVPB SCH (15:06)
[2020-07-22] MEDS: Latanoprost 0.005% Ophth Soln 2.5 ml Bottle EA EYE SCH (21:47)
[2020-07-22] MEDS: Multivitamin W/ Minerals 1 TAB PO SCH (21:49)
[2020-07-22] MEDS: Cholecalciferol 1,000 UNITS (25 MCG) TAB PO SCH (21:49)
[2020-07-22] MEDS: Mirtazapine 15 MG TAB PO SCH (21:51)
[2020-07-22] MEDS: Simvastatin 10 MG TAB PO SCH (21:54)
[2020-07-23 06:52] LABS: Anion Gap 19 mmol/L (10-20); BUN (Urea Nitrogen) 34 mg/dL (9.8-20.1); Calc. Creatinine Clearance 57 mL/min (70-130); Calcium 8.5 mg/dL (7.8-10.44); Carbon Dioxide 21 mmol/L (23-31); Chloride 97 mmol/L (98-107); Estimated GFR-MDRD 34; Glucose 99 mg/dL (83-110); Potassium 4.1 mmol/L (3.5-5.1); Sodium 133 mmol/L (136-145)
[2020-07-23] MEDS: Dexamethasone 4 mg/ml Vial SLOW IVP SCH (07:54)
[2020-07-23] MEDS: Ascorbic Acid 500 mg Chewable Tablet PO SCH (07:54)
[2020-07-23] MEDS: Calcium Carbonate 600 MG + Vit D TAB PO SCH ×2 (07:54→21:59)
[2020-07-23] MEDS: Losartan 25 MG TAB PO SCH (07:55)
[2020-07-23] MEDS: Docusate 100 MG CAP PO SCH (07:55)
[2020-07-23] MEDS: Fish Oil 1,000 MG CAP PO SCH (07:55)
[2020-07-23] MEDS: DULoxetine 60 MG CAP PO SCH (07:55)
[2020-07-23] MEDS: Heparin 5,000 UNITS/ML VIAL SC SCH ×3 (07:55→21:59)
[2020-07-23] MEDS: Timolol 0.5% Ophth Soln 5 ml Bottle EA EYE SCH (07:56)
[2020-07-23] MEDS: Pregabalin 50 MG CAP PO SCH ×2 (07:56→21:58)
[2020-07-23] MEDS: Zinc Sulfate 220 MG CAP PO SCH (07:57)
[2020-07-23] MEDS: Torsemide 20 MG TAB PO SCH ×2 (07:57→21:59)
[2020-07-23 09:24] LABS: Band 3 % (5-11); Hemoglobin 10.8 g/dL (12.0-16.0); Lymphocytes 11 % (21-51); MDiff Complete? YES; Mean Corpuscular HGB CONC 32.7 g/dL (32.0-36.0); Mean Corpuscular Hemoglobin 29.2 pg (27.0-31.0); Mean Corpuscular Volume 89.2 fL (78.0-98.0); Mean Platelet Volume 8.2 fL (7.4-10.4); Monocytes 2 % (0-10); Neutrophil 84 % (42-75); Platelet Count 227 thou/uL (130-400); Platelet Morphology Comment Appears Adequate; RBC Distribution Width 13.3 % (11.5-14.5); RBC Morphology Normal; Red Blood Cell (RBC) Count 3.72 mill/uL (4.20-5.40); White Blood Cell (WBC) Count 10.7 thou/uL (4.8-10.8)
[2020-07-23] MEDS ORDERED: Albuterol Sulfate 2.5 mg/3 ml Neb NEB PRN (10:01)
--- NOTE | 2020-07-23 10:06 | PDOC.HOSPP ---
- Subjective Encounter Date: 07/23/20 Encounter Time: 08:10 Subjective: Patient seen and examined bedside today, patient was wheezing this morning, she is still requiring oxygen, no fever, - Objective Vital Signs & Weight: Vital Signs (12 hours) Temp Pulse Resp BP BP Pulse Ox 07/23/20 07:59 98.4 F 65 14 146/64 H 92 L 07/23/20 07:56 65 146/64 H Weight Weight 268 lb 15.423 oz I&O: 07/22/20 07/23/20 07/24/20 06:59 06:59 06:59 Intake Total 600 1470 Balance 600 1470 Result Diagrams: 07/23/20 07:41 07/23/20 06:13 Hospitalist ROS - Review of Systems Constitutional: reports: weakness. denies: fever, chills, sweats, malaise, oth er Respiratory: reports: SOB with excertion, wheezing. denies: cough, dry, shortness of breath, hemoptysis, pleuritic pain, sputum, other Cardiovascular: denies: chest pain, palpitations, orthopnea, paroxysmal noc. dyspnea, edema, light headedness, other Gastrointestinal: denies: nausea, vomiting, abdominal pain, diarrhea, constipation, melena, hematochezia, other Genitourinary: denies: dysuria, frequency, incontinence, hematuria, retention, other Musculoskeletal: denies: neck pain, shoulder pain, arm pain, back pain, hand pain, leg pain, foot pain, other - Medication Medications: Active Medications Generic Name Dose Route Start Last Admin Trade Name Freq PRN Reason Stop Dose Admin Acetaminophen 650 mg 07/20/20 10:03 07/22/20 12:17 Acetaminophen 325 Mg Tab PO 650 mg Q4H PRN Administration Headache/Fever/Mild Pain (1-3) Ascorbic Acid 1,000 mg 07/20/20 09:00 07/23/20 07:54 Ascorbic Acid 500 Mg Chewable Tablet PO 1,000 mg DAILY TRISHA Administration Calcium/Vitamin D 1 tab 07/20/20 21:00 07/23/20 07:54 Calcium Carbonate 600 Mg + Vit D Tab PO 1 tab BID TRISHA Administration Cholecalciferol 1,000 units 07/20/20 21:00 07/22/20 21:49 Cholecalciferol 1,000 Units (25 Mcg) Tab PO 1,000 units QPM TRISHA Administration Docusate Sodium 100 mg 07/21/20 09:00 07/23/20 07:55 Docusate 100 Mg Cap PO 100 mg DAILY TRISHA Administration Duloxetine HCl 60 mg 07/21/20 09:00 07/23/20 07:55 Duloxetine 60 Mg Cap PO 60 mg DAILY TRISHA Administration Fish Oil 1,000 mg 07/21/20 09:00 07/23/20 07:55 Fish Oil 1,000 Mg Cap PO 1,000 mg QAM TRISHA Administration Heparin Sodium (Porcine) 5,000 units 07/20/20 15:00 07/23/20 07:55 Heparin 5,000 Units/Ml Vial SC 5,000 units TID TRISHA Administration Ceftriaxone Sodium 1 gm/ 100 mls @ 200 mls/hr 07/20/20 15:00 07/22/20 14:07 Sodium Chloride IVPB 100 mls Q24HR@1500 TRISHA Administration Iron/Minerals/Multivitamins 1 tab 07/20/20 21:00 07/22/20 21:49 Multivitamin W/ Minerals 1 Tab PO 1 tab HS TRISHA Administration Latanoprost 1 drop 07/20/20 21:00 07/22/20 21:47 Latanoprost 0.005% Ophth Soln 2.5 Ml Bottle EA EYE 1 drp HS TRISHA Administration Losartan Potassium 50 mg 07/21/20 09:00 07/23/20 07:55 Losartan 25 Mg Tab PO 50 mg DAILY TRISHA Administration Mirtazapine 15 mg 07/20/20 21:00 07/22/20 21:51 Mirtazapine 15 Mg Tab PO 15 mg HS TRISHA Administration Ondansetron HCl 4 mg 07/20/20 10:03 07/20/20 21:42 Ondansetron Odt 4 Mg Tab PO 4 mg Q6H PRN Administration Nausea/Vomiting Pantoprazole Sodium 40 mg 07/21/20 09:00 07/23/20 07:56 Pantoprazole 40 Mg Tab PO 40 mg DAILY TRISHA Administration Pregabalin 50 mg 07/20/20 21:00 07/23/20 07:56 Pregabalin 50 Mg Cap PO 50 mg BID TRISHA Administration Simvastatin 10 mg 07/20/20 21:00 07/22/20 21:54 Simvastatin 10 Mg Tab PO 10 mg HS TRISHA Administration Timolol Maleate 1 drop 07/21/20 09:00 07/23/20 07:56 Timolol 0.5% Ophth Soln 5 Ml Bottle EA EYE 1 drp DAILY TRISHA Administration Torsemide 20 mg 07/20/20 21:00 07/23/20 07:57 Torsemide 20 Mg Tab PO 20 mg BID TRISHA Administration Zinc Sulfate 220 mg 07/20/20 09:00 07/23/20 07:57 Zinc Sulfate 220 Mg Cap PO 220 mg DAILY TRISHA Administration - Exam General Appearance: NAD, awake alert Eye: PERRL, anicteric sclera ENT: normocephalic atraumatic, no oropharyngeal lesions Neck: supple, symmetric, no JVD, no thyromegaly Heart: RRR, no murmur, no gallops, no rubs Respiratory: no rales, wheezes Gastrointestinal: soft, non-tender, non-distended, normal bowel sounds Extremities: no cyanosis, no clubbing, no edema Skin: normal turgor, no lesions Neurological: no focal deficits Musculoskeletal: normal tone, normal strength Psychiatric: normal affect, normal behavior Hosp A/P (1) Acute respiratory failure with hypoxia Code(s): J96.01 - ACUTE RESPIRATORY FAILURE WITH HYPOXIA Status: Acute Plan: Due to COVID-19, s/p plasma therapy, 2 L nasal cannula oxygen (2) Acute renal failure superimposed on stage 3 chronic kidney disease Code(s): N17.9 - ACUTE KIDNEY FAILURE, UNSPECIFIED; N18.30 - CHRONIC KIDNEY DISEASE, STAGE 3 UNSPECIFIED Status: Acute Qualifiers: Chronic kidney disease stage 3 subtype: stage 3b (GFR 30-44) Plan: Renal function is now baseline (3) Pneumonia due to COVID-19 virus Code(s): U07.1 - COVID-19; J12.89 - OTHER VIRAL PNEUMONIA Status: Acute Plan: Today we will repeat chest x-ray to see any worsening (4) CHF (congestive heart failure) Code(s): I50.9 - HEART FAILURE, UNSPECIFIED Status: Chronic Qualifiers: Heart failure type: diastolic Heart failure chronicity: chronic Qualified Code(s): I50.32 - Chronic diastolic (congestive) heart failure Plan: Today I will give her 1 dose of IV Lasix given her wheezing and suspecting some extra fluid (5) Dyslipidemia Code(s): E78.5 - HYPERLIPIDEMIA, UNSPECIFIED Status: Chronic (6) GERD (gastroesophageal reflux disease) Code(s): K21.9 - GASTRO-ESOPHAGEAL REFLUX DISEASE WITHOUT ESOPHAGITIS Status: Chronic Qualifiers: Esophagitis presence: without esophagitis Qualified Code(s): K21.9 - Gastro-esophageal reflux disease without esophagitis (7) Obesity (BMI 30-39.9) Code(s): E66.9 - OBESITY, UNSPECIFIED Status: Chronic (8) Glaucoma Code(s): H40.9 - UNSPECIFIED GLAUCOMA Status: Chronic - Plan old records reviewed/req, continue antibiotics, respiratory therapy Discontinue azithromycin, Continue Rocephin Continue vitamin supplementation Wean off oxygen as tolerated Get chest x-ray to see any worsening Give Lasix 40 mg IV one-time dose and start albuterol inhaler every 6 hourly Ambulate as tolerated
--- NOTE | 2020-07-23 10:39 | RAD ---
XR Chest 1 View HISTORY: Covid 19 positive test COMPARISON: 07/19/2020 FINDINGS: The heart size stable. New patchy opacities is seen peripherally in the lung kyle bilater ally no pneumothoraces or pleural effusions are seen. IMPRESSION: Findings are suspicious for viral pneumonia.
[2020-07-23] MEDS ORDERED: Furosemide 40 MG/4 ML VIAL SLOW IVP SCH (11:00)
[2020-07-23] MEDS ORDERED: Furosemide 80 MG TAB PO SCH (11:30)
[2020-07-23] MEDS ORDERED: Cefdinir 300 MG CAP PO SCH (12:15)
[2020-07-23] MEDS: Albuterol 200 PUFF (6.7GM INHALER) INH PRN (12:24)
[2020-07-23] MEDS: Mirtazapine 15 MG TAB PO SCH (21:58)
[2020-07-23] MEDS: Latanoprost 0.005% Ophth Soln 2.5 ml Bottle EA EYE SCH (21:58)
[2020-07-23] MEDS: Multivitamin W/ Minerals 1 TAB PO SCH (21:59)
[2020-07-23] MEDS: Cefdinir 300 MG CAP PO SCH (21:59)
[2020-07-23] MEDS: Simvastatin 10 MG TAB PO SCH (21:59)
[2020-07-23] MEDS: Cholecalciferol 1,000 UNITS (25 MCG) TAB PO SCH (21:59)
[2020-07-24 06:53] LABS: #Lymphocytes 0.9 thou/uL (1.20-3.40); #Monocytes 0.4 thou/uL (0.11-0.59); #Neutrophils 7.5 thou/uL (1.40-6.50); %Eosinophils 0.5 % (0.0-10.0); %Lymphocytes 9.8 % (21.0-51.0); %Monocytes 4.6 % (0.0-10.0); %Neutrophils 85.2 % (42.0-75.0); Hemoglobin 10.1 g/dL (12.0-16.0); Mean Corpuscular HGB CONC 32.4 g/dL (32.0-36.0); Mean Corpuscular Hemoglobin 28.7 pg (27.0-31.0); Mean Corpuscular Volume 88.6 fL (78.0-98.0); Mean Platelet Volume 7.8 fL (7.4-10.4); Platelet Count 252 thou/uL (130-400); RBC Distribution Width 13.1 % (11.5-14.5); Red Blood Cell (RBC) Count 3.51 mill/uL (4.20-5.40); White Blood Cell (WBC) Count 8.9 thou/uL (4.8-10.8)
[2020-07-24 07:12] LABS: Anion Gap 14 mmol/L (10-20); BUN (Urea Nitrogen) 37 mg/dL (9.8-20.1); Calc. Creatinine Clearance 56 mL/min (70-130); Calcium 8.8 mg/dL (7.8-10.44); Carbon Dioxide 32 mmol/L (23-31); Chloride 91 mmol/L (98-107); Estimated GFR-MDRD 34; Glucose 100 mg/dL (83-110); Potassium 3.1 mmol/L (3.5-5.1); Sodium 134 mmol/L (136-145)
[2020-07-24] MEDS: DULoxetine 60 MG CAP PO SCH (09:45)
[2020-07-24] MEDS: Losartan 25 MG TAB PO SCH (09:46)
[2020-07-24] MEDS: Cefdinir 300 MG CAP PO SCH ×2 (09:46→22:22)
[2020-07-24] MEDS: Pregabalin 50 MG CAP PO SCH ×2 (09:46→22:22)
[2020-07-24] MEDS: Fish Oil 1,000 MG CAP PO SCH (09:47)
[2020-07-24] MEDS: Docusate 100 MG CAP PO SCH (09:47)
[2020-07-24] MEDS: Ascorbic Acid 500 mg Chewable Tablet PO SCH (09:47)
[2020-07-24] MEDS: Torsemide 20 MG TAB PO SCH ×2 (09:47→22:26)
[2020-07-24] MEDS: Heparin 5,000 UNITS/ML VIAL SC SCH ×3 (09:48→22:23)
[2020-07-24] MEDS: Calcium Carbonate 600 MG + Vit D TAB PO SCH ×2 (09:48→22:22)
[2020-07-24] MEDS: Zinc Sulfate 220 MG CAP PO SCH (09:48)
[2020-07-24] MEDS: Timolol 0.5% Ophth Soln 5 ml Bottle EA EYE SCH (09:49)
[2020-07-24] MEDS: Dexamethasone 4 MG TAB PO SCH (10:04)
[2020-07-24 14:10] LABS: Actual Bicarbonate (HCO3a) 29.2 mEq/L (22-28); Base Excess (BEa) 5.1 mEq/L (-2.0 to +3.0); CO2 Tension 41.1 mmHg (35.0-45.0); Calcium, Ionized (arterial) 1.13 mmol/L (1.12-1.30); Carboxyhemoglobin (COHb) 0.3 gm% (0.0-3.0); Hemoglobin (Hb) 11.7 g/dL (12.0-16.0); O2 Tension (PaO2), arterial 62.6 mmHg (> 60.0); Potassium - ABG Lab 3.32 mmol/L (3.70-5.30); pH, Arterial 7.47 (7.35-7.45)
[2020-07-24 15:09] LABS: ALV-art Gradient 599.025 mmHg (0-20); Puncture Site RRA
[2020-07-24] MEDS: Multivitamin W/ Minerals 1 TAB PO SCH (22:22)
[2020-07-24] MEDS: Cholecalciferol 1,000 UNITS (25 MCG) TAB PO SCH (22:22)
[2020-07-24] MEDS: Mirtazapine 15 MG TAB PO SCH (22:22)
[2020-07-24] MEDS: Latanoprost 0.005% Ophth Soln 2.5 ml Bottle EA EYE SCH (22:23)
[2020-07-24] MEDS: Simvastatin 10 MG TAB PO SCH (22:24)
[2020-07-24] MEDS: Acetaminophen 325 MG TAB PO PRN (22:27)
--- NOTE | 2020-07-25 07:32 | PDOC.HOSPP ---
- Subjective Encounter Date: 07/24/20 Encounter Time: 14:45 Subjective: Patient lying vertical on the bed was unable to get up. Helped patient set up. She states that she just feels weak. - Objective Vital Signs & Weight: Vital Signs (12 hours) Temp Pulse Resp BP Pulse Ox 07/25/20 04:35 97.7 F 68 20 151/71 H 96 07/25/20 00:00 98.1 F 71 20 137/66 98 07/24/20 20:00 99.1 F 73 20 150/69 H 96 Weight Weight 268 lb 15.423 oz I&O: 07/24/20 07/25/20 07/26/20 06:59 06:59 06:59 Intake Total 960 Balance 960 Result Diagrams: 07/24/20 06:09 07/24/20 06:09 Hospitalist ROS - Review of Systems Cardiovascular: denies: chest pain, palpitations, orthopnea, paroxysmal noc. dyspnea, edema, light headedness, other Gastrointestinal: denies: nausea, vomiting, abdominal pain, diarrhea, constipation, melena, hematochezia, other Genitourinary: denies: dysuria, frequency, incontinence, hematuria, retention, other - Medication Medications: Active Medications Generic Name Dose Route Start Last Admin Trade Name Freq PRN Reason Stop Dose Admin Acetaminophen 650 mg 07/20/20 10:03 07/24/20 22:27 Acetaminophen 325 Mg Tab PO 650 mg Q4H PRN Administration Headache/Fever/Mild Pain (1-3) Albuterol Sulfate 1 puff 07/23/20 10:27 07/23/20 12:24 Albuterol 200 Puff (6.7gm Inhaler) INH 1 puff [id number] PRN Administration Wheezing Ascorbic Acid 1,000 mg 07/20/20 09:00 07/24/20 09:47 Ascorbic Acid 500 Mg Chewable Tablet PO 1,000 mg DAILY TRISHA Administration Calcium/Vitamin D 1 tab 07/20/20 21:00 07/24/20 22:22 Calcium Carbonate 600 Mg + Vit D Tab PO 1 tab BID TRISHA Administration Cefdinir 300 mg 07/23/20 21:00 07/24/20 22:22 Cefdinir 300 Mg Cap PO 300 mg BID TRISHA Administration Cholecalciferol 1,000 units 07/20/20 21:00 07/24/20 22:22 Cholecalciferol 1,000 Units (25 Mcg) Tab PO 1,000 units QPM TRISHA Administration Dexamethasone 6 mg 07/24/20 08:00 07/24/20 10:04 Dexamethasone 4 Mg Tab PO 6 mg QAM-WM TRISHA Administration Docusate Sodium 100 mg 07/21/20 09:00 07/24/20 09:47 Docusate 100 Mg Cap PO 100 mg DAILY TRISHA Administration Duloxetine HCl 60 mg 07/21/20 09:00 07/24/20 09:45 Duloxetine 60 Mg Cap PO 60 mg DAILY TRISHA Administration Fish Oil 1,000 mg 07/21/20 09:00 07/24/20 09:47 Fish Oil 1,000 Mg Cap PO 1,000 mg QAM TRISHA Administration Heparin Sodium (Porcine) 5,000 units 07/20/20 15:00 07/24/20 22:23 Heparin 5,000 Units/Ml Vial SC 5,000 units TID TRISHA Administration Iron/Minerals/Multivitamins 1 tab 07/20/20 21:00 07/24/20 22:22 Multivitamin W/ Minerals 1 Tab PO 1 tab HS TRISHA Administration Latanoprost 1 drop 07/20/20 21:00 07/24/20 22:23 Latanoprost 0.005% Ophth Soln 2.5 Ml Bottle EA EYE 1 drp HS TRISHA Administration Losartan Potassium 50 mg 07/21/20 09:00 07/24/20 09:46 Losartan 25 Mg Tab PO 50 mg DAILY TRISHA Administration Mirtazapine 15 mg 07/20/20 21:00 07/24/20 22:22 Mirtazapine 15 Mg Tab PO 15 mg HS TRISHA Administration Ondansetron HCl 4 mg 07/20/20 10:03 07/20/20 21:42 Ondansetron Odt 4 Mg Tab PO 4 mg Q6H PRN Administration Nausea/Vomiting Pantoprazole Sodium 40 mg 07/21/20 09:00 07/24/20 09:47 Pantoprazole 40 Mg Tab PO 40 mg DAILY TRISHA Administration Pregabalin 50 mg 07/20/20 21:00 07/24/20 22:22 Pregabalin 50 Mg Cap PO 50 mg BID TRISHA Administration Simvastatin 10 mg 07/20/20 21:00 07/24/20 22:24 Simvastatin 10 Mg Tab PO 10 mg HS TRISHA Administration Timolol Maleate 1 drop 07/21/20 09:00 07/24/20 09:49 Timolol 0.5% Ophth Soln 5 Ml Bottle EA EYE 1 drp DAILY TRISHA Administration Torsemide 20 mg 07/20/20 21:00 07/24/20 22:26 Torsemide 20 Mg Tab PO 20 mg BID TRISHA Administration Zinc Sulfate 220 mg 07/20/20 09:00 07/24/20 09:48 Zinc Sulfate 220 Mg Cap PO 220 mg DAILY TRISHA Administration - Exam Heart: negative: RRR, no murmur, no gallops, no rubs, normal peripheral pulses, irregular, diminshed peripheral pulses, murmur present, II/IV, III/IV Respiratory: rhonchi Gastrointestinal: negative: soft, non-tender, non-distended, normal bowel sounds, no palpable masses, no hepatomegaly, no splenomegaly, no bruit, no guarding, no rigidity, tender to palpation, distended, diminished bowl sounds, voluntary guarding Extremities: 1+ LE edema Hosp A/P (1) Acute respiratory failure with hypoxia Code(s): J96.01 - ACUTE RESPIRATORY FAILURE WITH HYPOXIA Status: Acute (2) Pneumonia due to COVID-19 virus Code(s): U07.1 - COVID-19; J12.89 - OTHER VIRAL PNEUMONIA Status: Acute (3) GERD (gastroesophageal reflux disease) Code(s): K21.9 - GASTRO-ESOPHAGEAL REFLUX DISEASE WITHOUT ESOPHAGITIS Status: Chronic Qualifiers: Esophagitis presence: without esophagitis Qualified Code(s): K21.9 - Gastro-esophageal reflux disease without esophagitis (4) Obesity (BMI 30-39.9) Code(s): E66.9 - OBESITY, UNSPECIFIED Status: Chronic (5) CKD (chronic kidney disease), stage IV Code(s): N18.4 - CHRONIC KIDNEY DISEASE, STAGE 4 (SEVERE) Status: Chronic - Plan Azithromycin discontinued we will continue Rocephin for now. Per nursing staff patient oxygen saturations have been around 91 to 92%. We will get an ABG. She may require higher flow or Ventimask. We will continue to trend CRP markers she is on DVT prophylaxis with heparin. She gets very short of breath when ambulating with physical therapy.
[2020-07-25] MEDS: Docusate 100 MG CAP PO SCH (08:46)
[2020-07-25] MEDS: Cefdinir 300 MG CAP PO SCH ×2 (08:46→20:41)
[2020-07-25] MEDS: Fish Oil 1,000 MG CAP PO SCH (08:46)
[2020-07-25] MEDS: DULoxetine 60 MG CAP PO SCH (08:47)
[2020-07-25] MEDS: Calcium Carbonate 600 MG + Vit D TAB PO SCH ×2 (08:47→20:41)
[2020-07-25] MEDS: Dexamethasone 4 MG TAB PO SCH (08:47)
[2020-07-25] MEDS: Pregabalin 50 MG CAP PO SCH ×2 (08:48→20:41)
[2020-07-25] MEDS: Zinc Sulfate 220 MG CAP PO SCH (08:48)
[2020-07-25] MEDS: Torsemide 20 MG TAB PO SCH ×2 (08:49→20:41)
[2020-07-25] MEDS: Ascorbic Acid 500 mg Chewable Tablet PO SCH (08:49)
[2020-07-25] MEDS: Timolol 0.5% Ophth Soln 5 ml Bottle EA EYE SCH (08:49)
[2020-07-25] MEDS: Heparin 5,000 UNITS/ML VIAL SC SCH ×3 (08:49→20:42)
[2020-07-25] MEDS: Losartan 25 MG TAB PO SCH (08:57)
--- NOTE | 2020-07-25 16:08 | PDOC.HOSPP ---
- Subjective Encounter Date: 07/25/20 Encounter Time: 12:30 Subjective: Patient up in bed denies any complaints she is still on nonrebreather. - Objective Vital Signs & Weight: Vital Signs (12 hours) Temp Pulse Resp BP Pulse Ox 07/25/20 12:00 99.8 F H 73 20 122/62 93 L 07/25/20 08:00 98.0 F 68 18 167/66 H 97 07/25/20 04:35 97.7 F 68 20 151/71 H 96 Weight Weight 268 lb 15.423 oz I&O: 07/24/20 07/25/20 07/26/20 06:59 06:59 06:59 Intake Total 960 Balance 960 Result Diagrams: 07/24/20 06:09 07/24/20 06:09 Hospitalist ROS - Review of Systems Cardiovascular: denies: chest pain, palpitations, orthopnea, paroxysmal noc. dyspnea, edema, light headedness, other Gastrointestinal: denies: nausea, vomiting, abdominal pain, diarrhea, constipation, melena, hematochezia, other Genitourinary: denies: dysuria, frequency, incontinence, hematuria, retention, other - Medication Medications: Active Medications Generic Name Dose Route Start Last Admin Trade Name Freq PRN Reason Stop Dose Admin Acetaminophen 650 mg 07/20/20 10:03 07/24/20 22:27 Acetaminophen 325 Mg Tab PO 650 mg Q4H PRN Administration Headache/Fever/Mild Pain (1-3) Albuterol Sulfate 1 puff 07/23/20 10:27 07/23/20 12:24 Albuterol 200 Puff (6.7gm Inhaler) INH 1 puff [id number] PRN Administration Wheezing Ascorbic Acid 1,000 mg 07/20/20 09:00 07/25/20 08:49 Ascorbic Acid 500 Mg Chewable Tablet PO 1,000 mg DAILY TRISHA Administration Calcium/Vitamin D 1 tab 07/20/20 21:00 07/25/20 08:47 Calcium Carbonate 600 Mg + Vit D Tab PO 1 tab BID TRISHA Administration Cefdinir 300 mg 07/23/20 21:00 07/25/20 08:46 Cefdinir 300 Mg Cap PO 300 mg BID TRISHA Administration Cholecalciferol 1,000 units 07/20/20 21:00 07/24/20 22:22 Cholecalciferol 1,000 Units (25 Mcg) Tab PO 1,000 units QPM TRISHA Administration Dexamethasone 6 mg 07/24/20 08:00 07/25/20 08:47 Dexamethasone 4 Mg Tab PO 6 mg QAM-WM TRISHA Administration Docusate Sodium 100 mg 07/21/20 09:00 07/25/20 08:46 Docusate 100 Mg Cap PO 100 mg DAILY TRISHA Administration Duloxetine HCl 60 mg 07/21/20 09:00 07/25/20 08:47 Duloxetine 60 Mg Cap PO 60 mg DAILY TRISHA Administration Fish Oil 1,000 mg 07/21/20 09:00 07/25/20 08:46 Fish Oil 1,000 Mg Cap PO 1,000 mg QAM TRISHA Administration Heparin Sodium (Porcine) 5,000 units 07/20/20 15:00 07/25/20 08:49 Heparin 5,000 Units/Ml Vial SC 5,000 units TID TRISHA Administration Iron/Minerals/Multivitamins 1 tab 07/20/20 21:00 07/24/20 22:22 Multivitamin W/ Minerals 1 Tab PO 1 tab HS TRISHA Administration Latanoprost 1 drop 07/20/20 21:00 07/24/20 22:23 Latanoprost 0.005% Ophth Soln 2.5 Ml Bottle EA EYE 1 drp HS TRISHA Administration Losartan Potassium 50 mg 07/21/20 09:00 07/25/20 08:57 Losartan 25 Mg Tab PO 50 mg DAILY TRISHA Administration Mirtazapine 15 mg 07/20/20 21:00 07/24/20 22:22 Mirtazapine 15 Mg Tab PO 15 mg HS TRISHA Administration Ondansetron HCl 4 mg 07/20/20 10:03 07/20/20 21:42 Ondansetron Odt 4 Mg Tab PO 4 mg Q6H PRN Administration Nausea/Vomiting Pantoprazole Sodium 40 mg 07/21/20 09:00 07/25/20 08:46 Pantoprazole 40 Mg Tab PO 40 mg DAILY TRISHA Administration Pregabalin 50 mg 07/20/20 21:00 07/25/20 08:48 Pregabalin 50 Mg Cap PO 50 mg BID TRISHA Administration Simvastatin 10 mg 07/20/20 21:00 07/24/20 22:24 Simvastatin 10 Mg Tab PO 10 mg HS TRISHA Administration Timolol Maleate 1 drop 07/21/20 09:00 07/25/20 08:49 Timolol 0.5% Ophth Soln 5 Ml Bottle EA EYE 1 drp DAILY TRISHA Administration Torsemide 20 mg 07/20/20 21:00 07/25/20 08:49 Torsemide 20 Mg Tab PO 20 mg BID TRISHA Administration Zinc Sulfate 220 mg 07/20/20 09:00 07/25/20 08:48 Zinc Sulfate 220 Mg Cap PO 220 mg DAILY TRISHA Administration - Exam Neck: negative: supple, symmetric, no JVD, no thyromegaly, no lymphadenopathy, no carotid bruit, JVD Heart: negative: RRR, no murmur, no gallops, no rubs, normal peripheral pulses, irregular, diminshed peripheral pulses, murmur present, II/IV, III/IV Respiratory: negative: CTAB, no wheezes, no rales, no ronchi, normal chest expansion, no tachypnea, normal percussion, rales, rhonchi, tachypneic, wheezes Gastrointestinal: negative: soft, non-tender, non-distended, normal bowel sounds, no palpable masses, no hepatomegaly, no splenomegaly, no bruit, no guarding, no rigidity, tender to palpation, distended, diminished bowl sounds, voluntary guarding Hosp A/P (1) Acute respiratory failure with hypoxia Code(s): J96.01 - ACUTE RESPIRATORY FAILURE WITH HYPOXIA Status: Acute (2) Pneumonia due to COVID-19 virus Code(s): U07.1 - COVID-19; J12.89 - OTHER VIRAL PNEUMONIA Status: Acute (3) GERD (gastroesophageal reflux disease) Code(s): K21.9 - GASTRO-ESOPHAGEAL REFLUX DISEASE WITHOUT ESOPHAGITIS Status: Chronic Qualifiers: Esophagitis presence: without esophagitis Qualified Code(s): K21.9 - Gastro-esophageal reflux disease without esophagitis (4) Obesity (BMI 30-39.9) Code(s): E66.9 - OBESITY, UNSPECIFIED Status: Chronic (5) CKD (chronic kidney disease), stage IV Code(s): N18.4 - CHRONIC KIDNEY DISEASE, STAGE 4 (SEVERE) Status: Chronic - Plan Azithromycin discontinued we will continue Rocephin for now. Per nursing staff patient oxygen saturations have been around 91 to 92%. We will get an ABG. She may require higher flow or Ventimask. We will continue to trend CRP markers she is on DVT prophylaxis with heparin. She gets very short of breath when ambulating with physical therapy. 07/26 patient currently on Ventimask satting 90 pharynx percent. We will continue steroids and DVT prophylaxis. Continue to trend inflammatory markers.
[2020-07-25] MEDS: Multivitamin W/ Minerals 1 TAB PO SCH (20:41)
[2020-07-25] MEDS: Cholecalciferol 1,000 UNITS (25 MCG) TAB PO SCH (20:42)
[2020-07-25] MEDS: Mirtazapine 15 MG TAB PO SCH (20:42)
[2020-07-25] MEDS: Latanoprost 0.005% Ophth Soln 2.5 ml Bottle EA EYE SCH (20:43)
[2020-07-25] MEDS: Simvastatin 10 MG TAB PO SCH (20:45)
[2020-07-26] MEDS: DULoxetine 60 MG CAP PO SCH (08:04)
[2020-07-26] MEDS: Fish Oil 1,000 MG CAP PO SCH (08:04)
[2020-07-26] MEDS: Cefdinir 300 MG CAP PO SCH ×2 (08:04→20:55)
[2020-07-26] MEDS: Calcium Carbonate 600 MG + Vit D TAB PO SCH ×2 (08:04→20:56)
[2020-07-26] MEDS: Heparin 5,000 UNITS/ML VIAL SC SCH ×3 (08:04→20:56)
[2020-07-26] MEDS: Zinc Sulfate 220 MG CAP PO SCH (08:04)
[2020-07-26] MEDS: Torsemide 20 MG TAB PO SCH ×2 (08:05→20:56)
[2020-07-26] MEDS: Dexamethasone 4 MG TAB PO SCH (08:05)
[2020-07-26] MEDS: Ascorbic Acid 500 mg Chewable Tablet PO SCH (08:05)
[2020-07-26] MEDS: Docusate 100 MG CAP PO SCH (08:05)
[2020-07-26] MEDS: Pregabalin 50 MG CAP PO SCH ×2 (08:06→20:55)
[2020-07-26] MEDS: Losartan 25 MG TAB PO SCH (08:07)
[2020-07-26] MEDS: Timolol 0.5% Ophth Soln 5 ml Bottle EA EYE SCH ×2 (08:14→09:34)
--- NOTE | 2020-07-26 18:17 | PDOC.HOSPP ---
- Subjective Encounter Date: 07/26/20 Encounter Time: 11:45 Subjective: pt up in bed no complains - Objective Vital Signs & Weight: Vital Signs (12 hours) Temp Pulse Resp BP BP Pulse Ox 07/26/20 15:00 97.4 F L 68 18 109/65 93 L 07/26/20 11:21 97.7 F 71 18 108/62 93 L 07/26/20 09:34 68 112/64 07/26/20 08:30 98.1 F 68 18 112/64 94 L 07/26/20 08:00 94 L Weight Weight 268 lb 15.423 oz I&O: 07/25/20 07/26/20 07/27/20 06:59 06:59 06:59 Intake Total 200 960 Balance 200 960 Result Diagrams: 07/24/20 06:09 07/24/20 06:09 Hospitalist ROS - Review of Systems Cardiovascular: denies: chest pain, palpitations, orthopnea, paroxysmal noc. dyspnea, edema, light headedness, other Gastrointestinal: denies: nausea, vomiting, abdominal pain, diarrhea, constipation, melena, hematochezia, other Genitourinary: denies: dysuria, frequency, incontinence, hematuria, retention, other - Medication Medications: Active Medications Generic Name Dose Route Start Last Admin Trade Name Freq PRN Reason Stop Dose Admin Acetaminophen 650 mg 07/20/20 10:03 07/24/20 22:27 Acetaminophen 325 Mg Tab PO 650 mg Q4H PRN Administration Headache/Fever/Mild Pain (1-3) Albuterol Sulfate 1 puff 07/23/20 10:27 07/23/20 12:24 Albuterol 200 Puff (6.7gm Inhaler) INH 1 puff [id number] PRN Administration Wheezing Ascorbic Acid 1,000 mg 07/20/20 09:00 07/26/20 08:05 Ascorbic Acid 500 Mg Chewable Tablet PO 1,000 mg DAILY TRISHA Administration Calcium/Vitamin D 1 tab 07/20/20 21:00 07/26/20 08:04 Calcium Carbonate 600 Mg + Vit D Tab PO 1 tab BID TRISHA Administration Cefdinir 300 mg 07/23/20 21:00 07/26/20 08:04 Cefdinir 300 Mg Cap PO 300 mg BID TRISHA Administration Cholecalciferol 1,000 units 07/20/20 21:00 07/25/20 20:42 Cholecalciferol 1,000 Units (25 Mcg) Tab PO 1,000 units QPM TRISHA Administration Dexamethasone 6 mg 07/24/20 08:00 07/26/20 08:05 Dexamethasone 4 Mg Tab PO 6 mg QAM-WM TRISHA Administration Docusate Sodium 100 mg 07/21/20 09:00 07/26/20 08:05 Docusate 100 Mg Cap PO 100 mg DAILY TRISHA Administration Duloxetine HCl 60 mg 07/21/20 09:00 07/26/20 08:04 Duloxetine 60 Mg Cap PO 60 mg DAILY TRISHA Administration Fish Oil 1,000 mg 07/21/20 09:00 07/26/20 08:04 Fish Oil 1,000 Mg Cap PO 1,000 mg QAM TRISHA Administration Heparin Sodium (Porcine) 5,000 units 07/20/20 15:00 07/26/20 14:49 Heparin 5,000 Units/Ml Vial SC 5,000 units TID TRISHA Administration Iron/Minerals/Multivitamins 1 tab 07/20/20 21:00 07/25/20 20:41 Multivitamin W/ Minerals 1 Tab PO 1 tab HS TRISHA Administration Latanoprost 1 drop 07/20/20 21:00 07/25/20 20:43 Latanoprost 0.005% Ophth Soln 2.5 Ml Bottle EA EYE 1 drp HS TRISHA Administration Losartan Potassium 50 mg 07/21/20 09:00 07/26/20 08:07 Losartan 25 Mg Tab PO 50 mg DAILY TRISHA Administration Mirtazapine 15 mg 07/20/20 21:00 07/25/20 20:42 Mirtazapine 15 Mg Tab PO 15 mg HS TRISHA Administration Ondansetron HCl 4 mg 07/20/20 10:03 07/20/20 21:42 Ondansetron Odt 4 Mg Tab PO 4 mg Q6H PRN Administration Nausea/Vomiting Pantoprazole Sodium 40 mg 07/21/20 09:00 07/26/20 08:04 Pantoprazole 40 Mg Tab PO 40 mg DAILY TRISHA Administration Pregabalin 50 mg 07/20/20 21:00 07/26/20 08:06 Pregabalin 50 Mg Cap PO 50 mg BID TRISHA Administration Simvastatin 10 mg 07/20/20 21:00 07/25/20 20:45 Simvastatin 10 Mg Tab PO 10 mg HS TRISHA Administration Timolol Maleate 1 drop 07/21/20 09:00 07/26/20 09:34 Timolol 0.5% Ophth Soln 5 Ml Bottle EA EYE 1 drp DAILY TRISHA Administration Torsemide 20 mg 07/20/20 21:00 07/26/20 08:05 Torsemide 20 Mg Tab PO 20 mg BID TRISHA Administration Zinc Sulfate 220 mg 07/20/20 09:00 07/26/20 08:04 Zinc Sulfate 220 Mg Cap PO 220 mg DAILY TRISHA Administration - Exam Neck: negative: supple, symmetric, no JVD, no thyromegaly, no lymphadenopathy, no carotid bruit, JVD Heart: negative: RRR, no murmur, no gallops, no rubs, normal peripheral pulses, irregular, diminshed peripheral pulses, murmur present, II/IV, III/IV Respiratory: negative: CTAB, no wheezes, no rales, no ronchi, normal chest expansion, no tachypnea, normal percussion, rales, rhonchi, tachypneic, wheezes Gastrointestinal: negative: soft, non-tender, non-distended, normal bowel sounds, no palpable masses, no hepatomegaly, no splenomegaly, no bruit, no gu arding, no rigidity, tender to palpation, distended, diminished bowl sounds, voluntary guarding Hosp A/P (1) Acute respiratory failure with hypoxia Code(s): J96.01 - ACUTE RESPIRATORY FAILURE WITH HYPOXIA Status: Acute (2) Pneumonia due to COVID-19 virus Code(s): U07.1 - COVID-19; J12.89 - OTHER VIRAL PNEUMONIA Status: Acute (3) GERD (gastroesophageal reflux disease) Code(s): K21.9 - GASTRO-ESOPHAGEAL REFLUX DISEASE WITHOUT ESOPHAGITIS Status: Chronic Qualifiers: Esophagitis presence: without esophagitis Qualified Code(s): K21.9 - Gastro-esophageal reflux disease without esophagitis (4) Obesity (BMI 30-39.9) Code(s): E66.9 - OBESITY, UNSPECIFIED Status: Chronic (5) CKD (chronic kidney disease), stage IV Code(s): N18.4 - CHRONIC KIDNEY DISEASE, STAGE 4 (SEVERE) Status: Chronic - Plan Azithromycin discontinued we will continue Rocephin for now. Per nursing staff patient oxygen saturations have been around 91 to 92%. We will get an ABG. She may require higher flow or Ventimask. We will continue to trend CRP markers she is on DVT prophylaxis with heparin. She gets very short of breath when ambulating with physical therapy. 07/26 patient currently on Ventimask satting 90 pharynx percent. We will continue steroids and DVT prophylaxis. Continue to trend inflammatory markers. 07/27 pt on venti mask. called daughter and left message. will continue steroids and dvt ppx. PT ordered. clinical course guarded.
[2020-07-26] MEDS: Cholecalciferol 1,000 UNITS (25 MCG) TAB PO SCH (20:55)
[2020-07-26] MEDS: Latanoprost 0.005% Ophth Soln 2.5 ml Bottle EA EYE SCH (20:56)
[2020-07-26] MEDS: Mirtazapine 15 MG TAB PO SCH (20:56)
[2020-07-26] MEDS: Multivitamin W/ Minerals 1 TAB PO SCH (20:56)
[2020-07-26] MEDS: Simvastatin 10 MG TAB PO SCH (20:56)
[2020-07-27] MEDS: Fish Oil 1,000 MG CAP PO SCH (10:05)
[2020-07-27] MEDS: Heparin 5,000 UNITS/ML VIAL SC SCH ×3 (10:05→20:27)
[2020-07-27] MEDS: Calcium Carbonate 600 MG + Vit D TAB PO SCH ×2 (10:05→20:27)
[2020-07-27] MEDS: Losartan 25 MG TAB PO SCH (10:06)
[2020-07-27] MEDS: Dexamethasone 4 MG TAB PO SCH (10:06)
[2020-07-27] MEDS: Pregabalin 50 MG CAP PO SCH ×2 (10:06→20:28)
[2020-07-27] MEDS: DULoxetine 60 MG CAP PO SCH (10:06)
[2020-07-27] MEDS: Torsemide 20 MG TAB PO SCH ×2 (10:06→20:26)
[2020-07-27] MEDS: Docusate 100 MG CAP PO SCH (10:07)
[2020-07-27] MEDS: Ascorbic Acid 500 mg Chewable Tablet PO SCH (10:07)
[2020-07-27] MEDS: Timolol 0.5% Ophth Soln 5 ml Bottle EA EYE SCH (10:07)
[2020-07-27] MEDS: Cefdinir 300 MG CAP PO SCH ×2 (10:07→20:27)
[2020-07-27] MEDS: Zinc Sulfate 220 MG CAP PO SCH (10:07)
--- NOTE | 2020-07-27 13:06 | EKG ---
Test Reason : Blood Pressure : / mmHG Vent. Rate : 072 BPM Atrial Rate : 072 BPM P-R Int : 176 ms QRS Dur : 098 ms QT Int : 418 ms P-R-T Axes : 000 029 017 degrees QTc Int : 457 ms Normal sinus rhythm RSR' or QR pattern in V1 suggests right ventricular conduction delay Borderline ECG Confirmed by TRE HATHAWAY, DIONNE ([id number]), managing editor RYAN MCCORMACK ([id number]) on 07/27/2020 1:06:11 PM Referred By: Confirmed By:DIONNE TOLEDO MD
--- NOTE | 2020-07-27 13:24 | PDOC.HOSPP ---
- Subjective Encounter Date: 07/27/20 Encounter Time: 10:30 Subjective: Patient up in bed complains of shortness of breath on minimal exertion. - Objective Vital Signs & Weight: Vital Signs (12 hours) Pulse Ox 07/27/20 08:00 92 L 07/27/20 05:13 92 L Weight Weight 268 lb 15.423 oz I&O: 07/26/20 07/27/20 07/28/20 06:59 06:59 06:59 Intake Total 200 960 200 Balance 200 960 200 Result Diagrams: 07/24/20 06:09 07/24/20 06:09 Hospitalist ROS - Review of Systems Respiratory: reports: shortness of breath Cardiovascular: denies: chest pain, palpitations, orthopnea, paroxysmal noc. dyspnea, edema, light headedness, other Gastrointestinal: denies: nausea, vomiting, abdominal pain, diarrhea, co nstipation, melena, hematochezia, other Genitourinary: denies: dysuria, frequency, incontinence, hematuria, retention, other - Medication Medications: Active Medications Generic Name Dose Route Start Last Admin Trade Name Freq PRN Reason Stop Dose Admin Acetaminophen 650 mg 07/20/20 10:03 07/24/20 22:27 Acetaminophen 325 Mg Tab PO 650 mg Q4H PRN Administration Headache/Fever/Mild Pain (1-3) Albuterol Sulfate 1 puff 07/23/20 10:27 07/23/20 12:24 Albuterol 200 Puff (6.7gm Inhaler) INH 1 puff [id number] PRN Administration Wheezing Ascorbic Acid 1,000 mg 07/20/20 09:00 07/27/20 10:07 Ascorbic Acid 500 Mg Chewable Tablet PO 1,000 mg DAILY TRISHA Administration Calcium/Vitamin D 1 tab 07/20/20 21:00 07/27/20 10:05 Calcium Carbonate 600 Mg + Vit D Tab PO 1 tab BID TRISHA Administration Cefdinir 300 mg 07/23/20 21:00 07/27/20 10:07 Cefdinir 300 Mg Cap PO 300 mg BID TRISHA Administration Cholecalciferol 1,000 units 07/20/20 21:00 07/26/20 20:55 Cholecalciferol 1,000 Units (25 Mcg) Tab PO 1,000 units QPM TRISHA Administration Dexamethasone 6 mg 07/24/20 08:00 07/27/20 10:06 Dexamethasone 4 Mg Tab PO 6 mg QAM-WM TRISHA Administration Docusate Sodium 100 mg 07/21/20 09:00 07/27/20 10:07 Docusate 100 Mg Cap PO 100 mg DAILY TRISHA Administration Duloxetine HCl 60 mg 07/21/20 09:00 07/27/20 10:06 Duloxetine 60 Mg Cap PO 60 mg DAILY TRISHA Administration Fish Oil 1,000 mg 07/21/20 09:00 07/27/20 10:05 Fish Oil 1,000 Mg Cap PO 1,000 mg QAM TRISHA Administration Guaifenesin 200 mg 07/21/20 07:59 07/27/20 10:10 Diabetic Tussin 200 Mg/10 Ml Udcup PO 200 mg Q4H PRN Administration Cough Heparin Sodium (Porcine) 5,000 units 07/20/20 15:00 07/27/20 10:05 Heparin 5,000 Units/Ml Vial SC 5,000 units TID TRISHA Administration Iron/Minerals/Multivitamins 1 tab 07/20/20 21:00 07/26/20 20:56 Multivitamin W/ Minerals 1 Tab PO 1 tab HS TRISHA Administration Latanoprost 1 drop 07/20/20 21:00 07/26/20 20:56 Latanoprost 0.005% Ophth Soln 2.5 Ml Bottle EA EYE 1 drp HS TRISHA Administration Losartan Potassium 50 mg 07/21/20 09:00 07/27/20 10:06 Losartan 25 Mg Tab PO 50 mg DAILY TRISHA Administration Mirtazapine 15 mg 07/20/20 21:00 07/26/20 20:56 Mirtazapine 15 Mg Tab PO 15 mg HS TRISHA Administration Ondansetron HCl 4 mg 07/20/20 10:03 07/20/20 21:42 Ondansetron Odt 4 Mg Tab PO 4 mg Q6H PRN Administration Nausea/Vomiting Pantoprazole Sodium 40 mg 07/21/20 09:00 07/27/20 10:05 Pantoprazole 40 Mg Tab PO 40 mg DAILY TRISHA Administration Pregabalin 50 mg 07/20/20 21:00 07/27/20 10:06 Pregabalin 50 Mg Cap PO 50 mg BID TRISHA Administration Simvastatin 10 mg 07/20/20 21:00 07/26/20 20:56 Simvastatin 10 Mg Tab PO 10 mg HS TRISHA Administration Timolol Maleate 1 drop 07/21/20 09:00 07/27/20 10:07 Timolol 0.5% Ophth Soln 5 Ml Bottle EA EYE 1 drp DAILY TRISHA Administration Torsemide 20 mg 07/20/20 21:00 07/27/20 10:06 Torsemide 20 Mg Tab PO 20 mg BID TRISHA Administration Zinc Sulfate 220 mg 07/20/20 09:00 07/27/20 10:07 Zinc Sulfate 220 Mg Cap PO 220 mg DAILY TRISHA Administration - Exam Neck: negative: supple, symmetric, no JVD, no thyromegaly, no lymphadenopathy, no carotid bruit, JVD Heart: negative: RRR, no murmur, no gallops, no rubs, normal peripheral pulses, irregular, diminshed peripheral pulses, murmur present, II/IV, III/IV Respiratory: negative: CTAB, no wheezes, no rales, no ronchi, normal chest expansion, no tachypnea, normal percussion, rales, rhonchi, tachypneic, wheezes Gastrointestinal: negative: soft, non-tender, non-distended, normal bowel sounds, no palpable masses, no hepatomegaly, no splenomegaly, no bruit, no guarding, no rigidity, tender to palpation, distended, diminished bowl sounds, voluntary guarding Hosp A/P (1) Acute respiratory failure with hypoxia Code(s): J96.01 - ACUTE RESPIRATORY FAILURE WITH HYPOXIA Status: Acute (2) Pneumonia due to COVID-19 virus Code(s): U07.1 - COVID-19; J12.89 - OTHER VIRAL PNEUMONIA Status: Acute (3) GERD (gastroesophageal reflux disease) Code(s): K21.9 - GASTRO-ESOPHAGEAL REFLUX DISEASE WITHOUT ESOPHAGITIS Status: Chronic Qualifiers: Esophagitis presence: without esophagitis Qualified Code(s): K21.9 - Gastro-esophageal reflux disease without esophagitis (4) Obesity (BMI 30-39.9) Code(s): E66.9 - OBESITY, UNSPECIFIED Status: Chronic (5) CKD (chronic kidney disease), stage IV Code(s): N18.4 - CHRONIC KIDNEY DISEASE, STAGE 4 (SEVERE) Status: Chronic - Plan Azithromycin discontinued we will continue Rocephin for now. Per nursing staff patient oxygen saturations have been around 91 to 92%. We will get an ABG. She may require higher flow or Ventimask. We will continue to trend CRP markers she is on DVT prophylaxis with heparin. She gets very short of breath when ambulating with physical therapy. patient currently on Ventimask satting 90 pharynx percent. We will continue steroids and DVT prophylaxis. Continue to trend inflammatory markers. 07/26 pt on venti mask. called daughter and left message. will continue steroids and dvt ppx. PT ordered. clinical course guarded. 07/27 patient currently on high flow we will continue to monitor we will continue DVT prophylaxis. She is on steroids. Patient's CRP elevated compared to her prior 1. Clinical course guarded. Will talk to infectious disease to see if she is a candidate for convalescent plasma if she continues to tolerate. Try to call patient's daughter left message.
[2020-07-27] MEDS: Cholecalciferol 1,000 UNITS (25 MCG) TAB PO SCH (20:26)
[2020-07-27] MEDS: Mirtazapine 15 MG TAB PO SCH (20:27)
[2020-07-27] MEDS: Latanoprost 0.005% Ophth Soln 2.5 ml Bottle EA EYE SCH (20:27)
[2020-07-27] MEDS: Multivitamin W/ Minerals 1 TAB PO SCH (20:27)
[2020-07-27] MEDS: Simvastatin 10 MG TAB PO SCH (20:31)
[2020-07-28 06:36] LABS: #Eosinphils 0.1 thou/uL (0.0-0.7); #Lymphocytes 1.7 thou/uL (1.20-3.40); #Monocytes 0.5 thou/uL (0.11-0.59); #Neutrophils 8.3 thou/uL (1.40-6.50); %Basophils 0.3 % (0.0-1.0); %Eosinophils 0.9 % (0.0-10.0); %Lymphocytes 16.4 % (21.0-51.0); %Monocytes 4.4 % (0.0-10.0); %Neutrophils 78.1 % (42.0-75.0); Mean Corpuscular HGB CONC 32.6 g/dL (32.0-36.0); Mean Corpuscular Hemoglobin 29.2 pg (27.0-31.0); Mean Corpuscular Volume 89.6 fL (78.0-98.0); Mean Platelet Volume 7.6 fL (7.4-10.4); Platelet Count 352 thou/uL (130-400); RBC Distribution Width 13.4 % (11.5-14.5); Red Blood Cell (RBC) Count 3.76 mill/uL (4.20-5.40); White Blood Cell (WBC) Count 10.6 thou/uL (4.8-10.8)
[2020-07-28 06:53] LABS: ALT (SGPT) 66 U/L (8-55); AST (SGOT) 43 U/L (5-34); Albumin 3.2 g/dL (3.4-4.8); Alkaline Phosphatase 50 U/L (40-110); Anion Gap 15 mmol/L (10-20); BUN (Urea Nitrogen) 59 mg/dL (9.8-20.1); Bilirubin, Total 0.3 mg/dL (0.2-1.2); Calc. Creatinine Clearance 48 mL/min (70-130); Calcium 9.3 mg/dL (7.8-10.44); Carbon Dioxide 35 mmol/L (23-31); Chloride 92 mmol/L (98-107); Estimated GFR-MDRD 29; Globulin 3.7 g/dL (2.4-3.5); Glucose 94 mg/dL (83-110); Potassium 3.7 mmol/L (3.5-5.1); Protein, Total 6.9 g/dL (6.0-8.3); Sodium 138 mmol/L (136-145)
[2020-07-28] MEDS: Ascorbic Acid 500 mg Chewable Tablet PO SCH (07:55)
[2020-07-28] MEDS: Fish Oil 1,000 MG CAP PO SCH (07:55)
[2020-07-28] MEDS: Losartan 25 MG TAB PO SCH ×2 (07:55→09:02)
[2020-07-28] MEDS: Torsemide 20 MG TAB PO SCH ×2 (07:55→21:33)
[2020-07-28] MEDS: Calcium Carbonate 600 MG + Vit D TAB PO SCH ×2 (07:56→21:33)
[2020-07-28] MEDS: DULoxetine 60 MG CAP PO SCH (07:56)
[2020-07-28] MEDS: Heparin 5,000 UNITS/ML VIAL SC SCH ×3 (07:56→21:34)
[2020-07-28] MEDS: Dexamethasone 4 MG TAB PO SCH (07:56)
[2020-07-28] MEDS: Docusate 100 MG CAP PO SCH (07:57)
[2020-07-28] MEDS: Zinc Sulfate 220 MG CAP PO SCH (07:57)
[2020-07-28] MEDS: Timolol 0.5% Ophth Soln 5 ml Bottle EA EYE SCH (07:57)
[2020-07-28] MEDS: Pregabalin 50 MG CAP PO SCH ×2 (07:57→21:33)
[2020-07-28] MEDS: Cefdinir 300 MG CAP PO SCH ×2 (07:57→21:33)
--- NOTE | 2020-07-28 09:45 | RAD ---
Exam: Chest one view HISTORY:Shortness of breath Comparison: 07/19/2020, 07/23/2020 FINDINGS: Cardiac silhouette: Normal Aorta: Unremarkable Pulmonary vessels: Normal Costophrenic angles: Clear LUNGS: Persistent multi focal interstitial and alveolar opacities. Pneumothorax: None Osseous abnormalities: None IMPRESSION: Persistent bilateral COVID 19 pneumonia.
--- NOTE | 2020-07-28 15:10 | PDOC.HOSPP ---
- Subjective Encounter Date: 07/28/20 Encounter Time: 11:30 Subjective: Patient up in bed on high flow. She still has generalized weakness. - Objective Vital Signs & Weight: Vital Signs (12 hours) Temp Pulse Resp BP Pulse Ox 07/28/20 12:15 98 F 59 L 20 115/66 96 07/28/20 08:58 97.8 F 66 16 101/61 92 L 07/28/20 07:57 92 L 07/28/20 04:45 61 20 94 L Weight Weight 268 lb 15.423 oz I&O: 07/27/20 07/28/20 07/29/20 06:59 06:59 06:59 Intake Total 960 1200 Balance 960 1200 Result Diagrams: 07/28/20 05:51 07/28/20 05:51 Hospitalist ROS - Review of Systems Cardiovascular: denies: chest pain, palpitations, orthopnea, paroxysmal noc. dyspnea, edema, light headedness, other Gastrointestinal: denies: nausea, vomiting, abdominal pain, diarrhea, constipation, melena, hematochezia, other Genitourinary: denies: dysuria, frequency, incontinence, hematuria, retention, other - Medication Medications: Active Medications Generic Name Dose Route Start Last Admin Trade Name Freq PRN Reason Stop Dose Admin Acetaminophen 650 mg 07/20/20 10:03 07/24/20 22:27 Acetaminophen 325 Mg Tab PO 650 mg Q4H PRN Administration Headache/Fever/Mild Pain (1-3) Albuterol Sulfate 1 puff 07/23/20 10:27 07/23/20 12:24 Albuterol 200 Puff (6.7gm Inhaler) INH 1 puff [id number] PRN Administration Wheezing Ascorbic Acid 1,000 mg 07/20/20 09:00 07/28/20 07:55 Ascorbic Acid 500 Mg Chewable Tablet PO 1,000 mg DAILY TRISHA Administration Calcium/Vitamin D 1 tab 07/20/20 21:00 07/28/20 07:56 Calcium Carbonate 600 Mg + Vit D Tab PO 1 tab BID TRISHA Administration Cefdinir 300 mg 07/23/20 21:00 07/28/20 07:57 Cefdinir 300 Mg Cap PO 300 mg BID TRISHA Administration Cholecalciferol 1,000 units 07/20/20 21:00 07/27/20 20:26 Cholecalciferol 1,000 Units (25 Mcg) Tab PO 1,000 units QPM TRISHA Administration Dexamethasone 6 mg 07/24/20 08:00 07/28/20 07:56 Dexamethasone 4 Mg Tab PO 6 mg QAM-WM TRISHA Administration Docusate Sodium 100 mg 07/21/20 09:00 07/28/20 07:57 Docusate 100 Mg Cap PO 100 mg DAILY TRISHA Administration Duloxetine HCl 60 mg 07/21/20 09:00 07/28/20 07:56 Duloxetine 60 Mg Cap PO 60 mg DAILY TRISHA Administration Fish Oil 1,000 mg 07/21/20 09:00 07/28/20 07:55 Fish Oil 1,000 Mg Cap PO 1,000 mg QAM TRISHA Administration Guaifenesin 200 mg 07/21/20 07:59 07/27/20 10:10 Diabetic Tussin 200 Mg/10 Ml Udcup PO 200 mg Q4H PRN Administration Cough Heparin Sodium (Porcine) 5,000 units 07/20/20 15:00 07/28/20 07:56 Heparin 5,000 Units/Ml Vial SC 5,000 units TID TRISHA Administration Iron/Minerals/Multivitamins 1 tab 07/20/20 21:00 07/27/20 20:27 Multivitamin W/ Minerals 1 Tab PO 1 tab HS TRISHA Administration Latanoprost 1 drop 07/20/20 21:00 07/27/20 20:27 Latanoprost 0.005% Ophth Soln 2.5 Ml Bottle EA EYE 1 drp HS TRISHA Administration Losartan Potassium 50 mg 07/21/20 09:00 07/28/20 09:02 Losartan 25 Mg Tab PO Not Given DAILY TRISHA Mirtazapine 15 mg 07/20/20 21:00 07/27/20 20:27 Mirtazapine 15 Mg Tab PO 15 mg HS TRISHA Administration Ondansetron HCl 4 mg 07/20/20 10:03 07/20/20 21:42 Ondansetron Odt 4 Mg Tab PO 4 mg Q6H PRN Administration Nausea/Vomiting Pantoprazole Sodium 40 mg 07/21/20 09:00 07/28/20 07:56 Pantoprazole 40 Mg Tab PO 40 mg DAILY TRISHA Administration Pregabalin 50 mg 07/20/20 21:00 07/28/20 07:57 Pregabalin 50 Mg Cap PO 50 mg BID TRISHA Administration Simvastatin 10 mg 07/20/20 21:00 07/27/20 20:31 Simvastatin 10 Mg Tab PO 10 mg HS TRISHA Administration Timolol Maleate 1 drop 07/21/20 09:00 07/28/20 07:57 Timolol 0.5% Ophth Soln 5 Ml Bottle EA EYE 1 drp DAILY TRISHA Administration Torsemide 20 mg 07/20/20 21:00 07/28/20 07:55 Torsemide 20 Mg Tab PO 20 mg BID TRISHA Administration Zinc Sulfate 220 mg 07/20/20 09:00 07/28/20 07:57 Zinc Sulfate 220 Mg Cap PO 220 mg DAILY TRISHA Administration - Exam Neck: negative: supple, symmetric, no JVD, no thyromegaly, no lymphadenopathy, no carotid bruit, JVD Heart: negative: RRR, no murmur, no gallops, no rubs, normal peripheral pulses, irregular, diminshed peripheral pulses, murmur present, II/IV, III/IV Respiratory: negative: CTAB, no wheezes, no rales, no ronchi, normal chest expansion, no tachypnea, normal percussion, rales, rhonchi, tachypneic, wheezes Gastrointestinal: negative: soft, non-tender, non-distended, normal bowel sounds, no palpable masses, no hepatomegaly, no splenomegaly, no bruit, no guarding, no rigidity, tender to palpation, distended, diminished bowl sounds, voluntary guarding Hosp A/P (1) Acute respiratory failure with hypoxia Code(s): J96.01 - ACUTE RESPIRATORY FAILURE WITH HYPOXIA Status: Acute (2) Pneumonia due to COVID-19 virus Code(s): U07.1 - COVID-19; J12.89 - OTHER VIRAL PNEUMONIA Status: Acute (3) GERD (gastroesophageal reflux disease) Code(s): K21.9 - GASTRO-ESOPHAGEAL REFLUX DISEASE WITHOUT ESOPHAGITIS Status: Chronic Qualifiers: Esophagitis presence: without esophagitis Qualified Code(s): K21.9 - Gastro-esophageal reflux disease without esophagitis (4) Obesity (BMI 30-39.9) Code(s): E66.9 - OBESITY, UNSPECIFIED Status: Chronic (5) CKD (chronic kidney disease), stage IV Code(s): N18.4 - CHRONIC KIDNEY DISEASE, STAGE 4 (SEVERE) Status: Chronic - Plan Azithromycin discontinued we will continue Rocephin for now. Per nursing staff patient oxygen saturations have been around 91 to 92%. We will get an ABG. She may require higher flow or Ventimask. We will continue to trend CRP markers she is on DVT prophylaxis with heparin. She gets very short of breath when ambulating with physical therapy. patient currently on Ventimask satting 90 pharynx percent. We will continue steroids and DVT prophylaxis. Continue to trend inflammatory markers. 07/26 pt on venti mask. called daughter and left message. will continue steroids and dvt ppx. PT ordered. clinical course guarded. 07/27 patient currently on high flow we will continue to monitor we will continue DVT prophylaxis. She is on steroids. Patient's CRP elevated compared to her prior 1. Clinical course guarded. Will talk to infectious disease to see if she is a candidate for convalescent plasma if she continues to tolerate. Try to call patient's daughter left message. 07/28 patient received convalescent plasma. She still on high flow. Called patient's daughter left message again. Patient CRP trending downwards. We will continue to monitor. Overall prognosis is guarded. Physical therapy is working with the patient.
[2020-07-28] MEDS: Mirtazapine 15 MG TAB PO SCH (21:32)
[2020-07-28] MEDS: Multivitamin W/ Minerals 1 TAB PO SCH (21:32)
[2020-07-28] MEDS: Cholecalciferol 1,000 UNITS (25 MCG) TAB PO SCH (21:33)
[2020-07-28] MEDS: Latanoprost 0.005% Ophth Soln 2.5 ml Bottle EA EYE SCH (21:33)
[2020-07-28] MEDS: Simvastatin 10 MG TAB PO SCH (21:33)
[2020-07-29 06:17] LABS: INR-International Normal Ratio 0.9; Prothrombin Time 12.7 sec (12.0-14.7)
[2020-07-29] MEDS: Torsemide 20 MG TAB PO SCH ×2 (09:54→21:58)
[2020-07-29] MEDS: Cefdinir 300 MG CAP PO SCH ×2 (09:54→21:57)
[2020-07-29] MEDS: DULoxetine 60 MG CAP PO SCH (09:55)
[2020-07-29] MEDS: Fish Oil 1,000 MG CAP PO SCH (09:55)
[2020-07-29] MEDS: Docusate 100 MG CAP PO SCH (09:55)
[2020-07-29] MEDS: Losartan 25 MG TAB PO SCH (09:55)
[2020-07-29] MEDS: Ascorbic Acid 500 mg Chewable Tablet PO SCH (09:55)
[2020-07-29] MEDS: Calcium Carbonate 600 MG + Vit D TAB PO SCH ×2 (09:56→21:57)
[2020-07-29] MEDS: Dexamethasone 4 MG TAB PO SCH (09:56)
[2020-07-29] MEDS: Pregabalin 50 MG CAP PO SCH ×2 (09:57→21:58)
[2020-07-29] MEDS: Heparin 5,000 UNITS/ML VIAL SC SCH ×3 (09:59→21:57)
[2020-07-29] MEDS: Timolol 0.5% Ophth Soln 5 ml Bottle EA EYE SCH (09:59)
[2020-07-29] MEDS: Zinc Sulfate 220 MG CAP PO SCH (10:00)
--- NOTE | 2020-07-29 14:11 | PDOC.HOSPP ---
- Subjective Encounter Date: 07/29/20 Encounter Time: 11:15 Subjective: pt up in bed complains of sob and weakness. - Objective Vital Signs & Weight: Vital Signs (12 hours) Pulse Resp Pulse Ox 07/29/20 09:45 94 L 07/29/20 03:39 62 20 94 L Weight Weight 268 lb 15.423 oz I&O: 07/28/20 07/29/20 07/30/20 06:59 06:59 06:59 Intake Total 1200 1080 Balance 1200 1080 Result Diagrams: 07/28/20 05:51 07/28/20 05:51 Hospitalist ROS - Review of Systems Cardiovascular: denies: chest pain, palpitations, orthopnea, paroxysmal noc. dyspnea, edema, light headedness, other Gastrointestinal: denies: nausea, vomiting, abdominal pain, diarrhea, constipation, melena, hematochezia, other - Medication Medications: Active Medications Generic Name Dose Route Start Last Admin Trade Name Freq PRN Reason Stop Dose Admin Acetaminophen 650 mg 07/20/20 10:03 07/24/20 22:27 Acetaminophen 325 Mg Tab PO 650 mg Q4H PRN Administration Headache/Fever/Mild Pain (1-3) Albuterol Sulfate 1 puff 07/23/20 10:27 07/23/20 12:24 Albuterol 200 Puff (6.7gm Inhaler) INH 1 puff [id number] PRN Administration Wheezing Ascorbic Acid 1,000 mg 07/20/20 09:00 07/29/20 09:55 Ascorbic Acid 500 Mg Chewable Tablet PO 1,000 mg DAILY TRISHA Administration Calcium/Vitamin D 1 tab 07/20/20 21:00 07/29/20 09:56 Calcium Carbonate 600 Mg + Vit D Tab PO 1 tab BID TRISHA Administration Cefdinir 300 mg 07/23/20 21:00 07/29/20 09:54 Cefdinir 300 Mg Cap PO 300 mg BID TRISHA Administration Cholecalciferol 1,000 units 07/20/20 21:00 07/28/20 21:33 Cholecalciferol 1,000 Units (25 Mcg) Tab PO 1,000 units QPM TRISHA Administration Dexamethasone 6 mg 07/24/20 08:00 07/29/20 09:56 Dexamethasone 4 Mg Tab PO 6 mg QAM-WM TRISHA Administration Docusate Sodium 100 mg 07/21/20 09:00 07/29/20 09:55 Docusate 100 Mg Cap PO 100 mg DAILY TRISHA Administration Duloxetine HCl 60 mg 07/21/20 09:00 07/29/20 09:55 Duloxetine 60 Mg Cap PO 60 mg DAILY TRISHA Administration Fish Oil 1,000 mg 07/21/20 09:00 07/29/20 09:55 Fish Oil 1,000 Mg Cap PO 1,000 mg QAM TRIHSA Administration Guaifenesin 200 mg 07/21/20 07:59 07/27/20 10:10 Diabetic Tussin 200 Mg/10 Ml Udcup PO 200 mg Q4H PRN Administration Cough Heparin Sodium (Porcine) 5,000 units 07/20/20 15:00 07/29/20 09:59 Heparin 5,000 Units/Ml Vial SC 5,000 units TID TRISHA Administration Iron/Minerals/Multivitamins 1 tab 07/20/20 21:00 07/28/20 21:32 Multivitamin W/ Minerals 1 Tab PO 1 tab HS TRISHA Administration Latanoprost 1 drop 07/20/20 21:00 07/28/20 21:33 Latanoprost 0.005% Ophth Soln 2.5 Ml Bottle EA EYE 1 drp HS TRISHA Administration Losartan Potassium 50 mg 07/21/20 09:00 07/29/20 09:55 Losartan 25 Mg Tab PO 50 mg DAILY TRISHA Administration Mirtazapine 15 mg 07/20/20 21:00 07/28/20 21:32 Mirtazapine 15 Mg Tab PO 15 mg HS TRISHA Administration Ondansetron HCl 4 mg 07/20/20 10:03 07/20/20 21:42 Ondansetron Odt 4 Mg Tab PO 4 mg Q6H PRN Administration Nausea/Vomiting Pantoprazole Sodium 40 mg 07/21/20 09:00 07/29/20 09:55 Pantoprazole 40 Mg Tab PO 40 mg DAILY TRISHA Administration Pregabalin 50 mg 07/20/20 21:00 07/29/20 09:57 Pregabalin 50 Mg Cap PO 50 mg BID TRISHA Administration Simvastatin 10 mg 07/20/20 21:00 07/28/20 21:33 Simvastatin 10 Mg Tab PO 10 mg HS TRISHA Administration Timolol Maleate 1 drop 07/21/20 09:00 07/29/20 09:59 Timolol 0.5% Ophth Soln 5 Ml Bottle EA EYE 1 drp DAILY TRISHA Administration Torsemide 20 mg 07/20/20 21:00 07/29/20 09:54 Torsemide 20 Mg Tab PO 20 mg BID TRISHA Administration Zinc Sulfate 220 mg 07/20/20 09:00 07/29/20 10:00 Zinc Sulfate 220 Mg Cap PO 220 mg DAILY TRISHA Administration - Exam Neck: negative: supple, symmetric, no JVD, no thyromegaly, no lymphadenopathy, no carotid bruit, JVD Heart: negative: RRR, no murmur, no gallops, no rubs, normal peripheral pulses, irregular, diminshed peripheral pulses, murmur present, II/IV, III/IV Respiratory: negative: CTAB, no wheezes, no rales, no ronchi, normal chest expansion, no tachypnea, normal percussion, rales, rhonchi, tachypneic, wheezes Gastrointestinal: negative: soft, non-tender, non-distended, normal bowel sounds, no palpable masses, no hepatomegaly, no splenomegaly, no bruit, no guarding, no rigidity, tender to palpation, distended, diminished bowl sounds, voluntary guarding Hosp A/P (1) Acute respiratory failure with hypoxia Code(s): J96.01 - ACUTE RESPIRATORY FAILURE WITH HYPOXIA Status: Acute (2) Pneumonia due to COVID-19 virus Code(s): U07.1 - COVID-19; J12.89 - OTHER VIRAL PNEUMONIA Status: Acute (3) GERD (gastroesophageal reflux disease) Code(s): K21.9 - GASTRO-ESOPHAGEAL REFLUX DISEASE WITHOUT ESOPHAGITIS Status: Chronic Qualifiers: Esophagitis presence: without esophagitis Qualified Code(s): K21.9 - Gastro-esophageal reflux disease without esophagitis (4) Obesity (BMI 30-39.9) Code(s): E66.9 - OBESITY, UNSPECIFIED Status: Chronic (5) CKD (chronic kidney disease), stage IV Code(s): N18.4 - CHRONIC KIDNEY DISEASE, STAGE 4 (SEVERE) Status: Chronic - Plan Azithromycin discontinued we will continue Rocephin for now. Per nursing staff patient oxygen saturations have been around 91 to 92%. We will get an ABG. She may require higher flow or Ventimask. We will continue to trend CRP markers she is on DVT prophylaxis with heparin. She gets very short of breath when ambulating with physical therapy. patient currently on Ventimask satting 90 pharynx percent. We will continue steroids and DVT prophylaxis. Continue to trend inflammatory markers. 07/26 pt on venti mask. called daughter and left message. will continue steroids and dvt ppx. PT ordered. clinical course guarded. 07/27 patient currently on high flow we will continue to monitor we will continue DVT prophylaxis. She is on steroids. Patient's CRP elevated compared to her prior 1. Clinical course guarded. Will talk to infectious disease to see if she is a candidate for convalescent plasma if she continues to tolerate. Try to call patient's daughter left message. 07/28 patient received convalescent plasma. She still on high flow. Called patient's daughter left message again. Patient CRP trending downwards. We will continue to monitor. Overall prognosis is guarded. Physical therapy is working with the patient. 07/29 pt up in bed still on high flow. Patient's daughter called and updated. We will continue to trend CRP. We will continue antibiotics.
[2020-07-29] MEDS ORDERED: Budesonide 0.25 MG/2 ML NEB INH SCH (18:30)
[2020-07-29] MEDS ORDERED: Mometasone 100 MCG/PUFF (1 INHALER) INH SCH (21:45)
[2020-07-29] MEDS: Cholecalciferol 1,000 UNITS (25 MCG) TAB PO SCH (21:56)
[2020-07-29] MEDS: Mirtazapine 15 MG TAB PO SCH (21:56)
[2020-07-29] MEDS: Simvastatin 10 MG TAB PO SCH (21:57)
[2020-07-29] MEDS: Latanoprost 0.005% Ophth Soln 2.5 ml Bottle EA EYE SCH (21:57)
[2020-07-29] MEDS: Multivitamin W/ Minerals 1 TAB PO SCH (21:57)
[2020-07-30] MEDS: Mometasone 100 MCG/PUFF (1 INHALER) INH SCH ×2 (06:15→22:13)
[2020-07-30] MEDS: Ascorbic Acid 500 mg Chewable Tablet PO SCH (09:41)
[2020-07-30] MEDS: Zinc Sulfate 220 MG CAP PO SCH (09:41)
[2020-07-30] MEDS: DULoxetine 60 MG CAP PO SCH (09:42)
[2020-07-30] MEDS: Calcium Carbonate 600 MG + Vit D TAB PO SCH ×2 (09:42→19:58)
[2020-07-30] MEDS: Dexamethasone 4 MG TAB PO SCH (09:42)
[2020-07-30] MEDS: Fish Oil 1,000 MG CAP PO SCH (09:44)
[2020-07-30] MEDS: Pregabalin 50 MG CAP PO SCH ×2 (09:44→19:59)
[2020-07-30] MEDS: Losartan 25 MG TAB PO SCH (09:44)
[2020-07-30] MEDS: Torsemide 20 MG TAB PO SCH ×2 (09:44→20:01)
[2020-07-30] MEDS: Cefdinir 300 MG CAP PO SCH ×2 (09:45→19:58)
[2020-07-30] MEDS: Docusate 100 MG CAP PO SCH (09:45)
[2020-07-30] MEDS: Heparin 5,000 UNITS/ML VIAL SC SCH ×3 (09:45→19:58)
[2020-07-30] MEDS: Timolol 0.5% Ophth Soln 5 ml Bottle EA EYE SCH (09:46)
--- NOTE | 2020-07-30 14:07 | PDOC.HOSPP ---
- Subjective Encounter Date: 07/30/20 Encounter Time: 10:00 Subjective: Patient up in bed more awake and alert. - Objective Vital Signs & Weight: Vital Signs (12 hours) Pulse Resp BP Pulse Ox 07/30/20 09:46 62 120/60 07/30/20 09:00 93 L 07/30/20 08:20 96 07/30/20 03:38 62 20 98 Weight Admit Weight 268 lb 15.424 oz Weight 268 lb 15.423 oz I&O: 07/29/20 07/30/20 07/31/20 06:59 06:59 06:59 Intake Total 1080 1200 Balance 1080 1200 Result Diagrams: 07/28/20 05:51 07/28/20 05:51 Hospitalist ROS - Review of Systems ENT: reports: other (Generalized weakness) Cardiovascular: denies: chest pain, palpitations, orthopnea, paroxysmal noc. dyspnea, edema, light headedness, other Gastrointestinal: denies: nausea, vomiting, abdominal pain, diarrhea, constipation, melena, hematochezia, other Musculoskeletal: denies: neck pain, shoulder pain, arm pain, back pain, hand pain, leg pain, foot pain, other - Medication Medications: Active Medications Generic Name Dose Route Start Last Admin Trade Name Freq PRN Reason Stop Dose Admin Acetaminophen 650 mg 07/20/20 10:03 07/24/20 22:27 Acetaminophen 325 Mg Tab PO 650 mg Q4H PRN Administration Headache/Fever/Mild Pain (1-3) Albuterol Sulfate 1 puff 07/23/20 10:27 07/23/20 12:24 Albuterol 200 Puff (6.7gm Inhaler) INH 1 puff [id number] PRN Administration Wheezing Ascorbic Acid 1,000 mg 07/20/20 09:00 07/30/20 09:41 Ascorbic Acid 500 Mg Chewable Tablet PO 1,000 mg DAILY TRISHA Administration Calcium/Vitamin D 1 tab 07/20/20 21:00 07/30/20 09:42 Calcium Carbonate 600 Mg + Vit D Tab PO 1 tab BID TIRSHA Administration Cefdinir 300 mg 07/23/20 21:00 07/30/20 09:45 Cefdinir 300 Mg Cap PO 300 mg BID TRISHA Administration Cholecalciferol 1,000 units 07/20/20 21:00 07/29/20 21:56 Cholecalciferol 1,000 Units (25 Mcg) Tab PO 1,000 units QPM TRISHA Administration Dexamethasone 6 mg 07/24/20 08:00 07/30/20 09:42 Dexamethasone 4 Mg Tab PO 6 mg QAM-WM TRISHA Administration Docusate Sodium 100 mg 07/21/20 09:00 07/30/20 09:45 Docusate 100 Mg Cap PO 100 mg DAILY TRISHA Administration Duloxetine HCl 60 mg 07/21/20 09:00 07/30/20 09:42 Duloxetine 60 Mg Cap PO 60 mg DAILY TRISHA Administration Fish Oil 1,000 mg 07/21/20 09:00 07/30/20 09:44 Fish Oil 1,000 Mg Cap PO 1,000 mg QAM TRISHA Administration Guaifenesin 200 mg 07/21/20 07:59 07/27/20 10:10 Diabetic Tussin 200 Mg/10 Ml Udcup PO 200 mg Q4H PRN Administration Cough Heparin Sodium (Porcine) 5,000 units 07/20/20 15:00 07/30/20 09:45 Heparin 5,000 Units/Ml Vial SC 5,000 units TID TRISHA Administration Iron/Minerals/Multivitamins 1 tab 07/20/20 21:00 07/29/20 21:57 Multivitamin W/ Minerals 1 Tab PO 1 tab HS TRISHA Administration Latanoprost 1 drop 07/20/20 21:00 07/29/20 21:57 Latanoprost 0.005% Ophth Soln 2.5 Ml Bottle EA EYE 1 drp HS TRISHA Administration Losartan Potassium 50 mg 07/21/20 09:00 07/30/20 09:44 Losartan 25 Mg Tab PO 50 mg DAILY TRISHA Administration Mirtazapine 15 mg 07/20/20 21:00 07/29/20 21:56 Mirtazapine 15 Mg Tab PO 15 mg HS TRISHA Administration Mometasone Furoate 200 mcg 07/30/20 06:30 07/30/20 06:15 Mometasone 100 Mcg/Puff (1 Inhaler) INH 2 inh BID-RT TRISHA Administration Ondansetron HCl 4 mg 07/20/20 10:03 07/20/20 21:42 Ondansetron Odt 4 Mg Tab PO 4 mg Q6H PRN Administration Nausea/Vomiting Pantoprazole Sodium 40 mg 07/21/20 09:00 07/30/20 09:43 Pantoprazole 40 Mg Tab PO 40 mg DAILY TRISHA Administration Pregabalin 50 mg 07/20/20 21:00 07/30/20 09:44 Pregabalin 50 Mg Cap PO 50 mg BID TRISHA Administration Simvastatin 10 mg 07/20/20 21:00 07/29/20 21:57 Simvastatin 10 Mg Tab PO 10 mg HS TRISHA Administration Timolol Maleate 1 drop 07/21/20 09:00 07/30/20 09:46 Timolol 0.5% Ophth Soln 5 Ml Bottle EA EYE 1 drp DAILY TRISHA Administration Torsemide 20 mg 07/20/20 21:00 07/30/20 09:44 Torsemide 20 Mg Tab PO 20 mg BID TRISHA Administration Zinc Sulfate 220 mg 07/20/20 09:00 07/30/20 09:41 Zinc Sulfate 220 Mg Cap PO 220 mg DAILY TRISHA Administration - Exam Neck: negative: supple, symmetric, no JVD, no thyromegaly, no lymphadenopathy, no carotid bruit, JVD Heart: negative: RRR, no murmur, no gallops, no rubs, normal peripheral pulses, irregular, diminshed peripheral pulses, murmur present, II/IV, III/IV Respiratory: negative: CTAB, no wheezes, no rales, no ronchi, normal chest expansion, no tachypnea, normal percussion, rales, rhonchi, tachypneic, wheezes Gastrointestinal: negative: soft, non-tender, non-distended, normal bowel sounds, no palpable masses, no hepatomegaly, no splenomegaly, no bruit, no guarding, no rigidity, tender to palpation, distended, diminished bowl sounds, voluntary guarding Hosp A/P (1) Acute respiratory failure with hypoxia Code(s): J96.01 - ACUTE RESPIRATORY FAILURE WITH HYPOXIA Status: Acute (2) Pneumonia due to COVID-19 virus Code(s): U07.1 - COVID-19; J12.89 - OTHER VIRAL PNEUMONIA Status: Acute (3) GERD (gastroesophageal reflux disease) Code(s): K21.9 - GASTRO-ESOPHAGEAL REFLUX DISEASE WITHOUT ESOPHAGITIS Status: Chronic Qualifiers: Esophagitis presence: without esophagitis Qualified Code(s): K21.9 - Gastro-esophageal reflux disease without esophagitis (4) Obesity (BMI 30-39.9) Code(s): E66.9 - OBESITY, UNSPECIFIED Status: Chronic (5) CKD (chronic kidney disease), stage IV Code(s): N18.4 - CHRONIC KIDNEY DISEASE, STAGE 4 (SEVERE) Status: Chronic - Plan Azithromycin discontinued we will continue Rocephin for now. Per nursing staff patient oxygen saturations have been around 91 to 92%. We will get an ABG. She may require higher flow or Ventimask. We will continue to trend CRP markers she is on DVT prophylaxis with heparin. She gets very short of breath when ambulating with physical therapy. patient currently on Ventimask satting 90 pharynx percent. We will continue steroids and DVT prophylaxis. Continue to trend inflammatory markers. 07/26 pt on venti mask. called daughter and left message. will continue steroids and dvt ppx. PT ordered. clinical course guarded. 07/27 patient currently on high flow we will continue to monitor we will continue DVT prophylaxis. She is on steroids. Patient's CRP elevated compared to her prior 1. Clinical course guarded. Will talk to infectious disease to see if she is a candidate for convalescent plasma if she continues to tolerate. Try to call patient's daughter left message. 07/28 patient received convalescent plasma. She still on high flow. Called patient's daughter left message again. Patient CRP trending downwards. We will continue to monitor. Overall prognosis is guarded. Physical therapy is working with the patient. 07/29 pt up in bed still on high flow. Patient's daughter called and updated. We will continue to trend CRP. We will continue antibiotics. 07/30 patient continues to be on high flow however has been titrated down per respiratory. Will trend CRP. Patient more awake and oriented today. Overall prognosis is guarded. Patient desats when gets up to the bedside commode.
[2020-07-30] MEDS: Latanoprost 0.005% Ophth Soln 2.5 ml Bottle EA EYE SCH (19:58)
[2020-07-30] MEDS: Cholecalciferol 1,000 UNITS (25 MCG) TAB PO SCH (19:58)
[2020-07-30] MEDS: Mirtazapine 15 MG TAB PO SCH (19:59)
[2020-07-30] MEDS: Multivitamin W/ Minerals 1 TAB PO SCH (19:59)
[2020-07-30] MEDS: Simvastatin 10 MG TAB PO SCH (20:01)
[2020-07-31 06:08] LABS: Anion Gap 15 mmol/L (10-20); BUN (Urea Nitrogen) 61 mg/dL (9.8-20.1); Calc. Creatinine Clearance 46 mL/min (70-130); Calcium 9.3 mg/dL (7.8-10.44); Carbon Dioxide 28 mmol/L (23-31); Chloride 92 mmol/L (98-107); Estimated GFR-MDRD 27; Glucose 115 mg/dL (83-110); Potassium 3.9 mmol/L (3.5-5.1); Sodium 131 mmol/L (136-145)
[2020-07-31] MEDS: Losartan 25 MG TAB PO SCH (08:39)
[2020-07-31] MEDS: Torsemide 20 MG TAB PO SCH ×2 (08:39→21:21)
[2020-07-31] MEDS: Pregabalin 50 MG CAP PO SCH ×2 (08:39→21:18)
[2020-07-31] MEDS: DULoxetine 60 MG CAP PO SCH (08:40)
[2020-07-31] MEDS: Fish Oil 1,000 MG CAP PO SCH (08:40)
[2020-07-31] MEDS: Ascorbic Acid 500 mg Chewable Tablet PO SCH (08:40)
[2020-07-31] MEDS: Dexamethasone 4 MG TAB PO SCH (08:42)
[2020-07-31] MEDS: Heparin 5,000 UNITS/ML VIAL SC SCH ×3 (08:44→21:21)
[2020-07-31] MEDS: Calcium Carbonate 600 MG + Vit D TAB PO SCH ×2 (08:44→21:18)
[2020-07-31] MEDS: Docusate 100 MG CAP PO SCH (08:44)
[2020-07-31] MEDS: Zinc Sulfate 220 MG CAP PO SCH (08:49)
[2020-07-31] MEDS: Latanoprost 0.005% Ophth Soln 2.5 ml Bottle EA EYE SCH ×2 (08:50→21:18)
[2020-07-31] MEDS: Timolol 0.5% Ophth Soln 5 ml Bottle EA EYE SCH (09:25)
[2020-07-31] MEDS: Mometasone 100 MCG/PUFF (1 INHALER) INH SCH ×2 (12:00→21:18)
--- NOTE | 2020-07-31 12:44 | PDOC.HOSPP ---
- Subjective Encounter Date: 07/31/20 Encounter Time: 11:30 Subjective: pt up in bed feels tired. still on high flow. - Objective Vital Signs & Weight: Vital Signs (12 hours) Temp Pulse Resp BP BP BP Pulse Ox 07/31/20 09:25 80 123/78 07/31/20 08:00 98.6 F 80 19 120/80 93 L 07/31/20 04:00 97.9 F 62 18 112/76 95 Weight Admit Weight 268 lb 15.424 oz Weight 268 lb 15.423 oz I&O: 07/30/20 07/31/20 08/01/20 06:59 06:59 06:59 Intake Total 1200 950 Balance 1200 950 Result Diagrams: 07/28/20 05:51 07/31/20 05:27 Hospitalist ROS - Review of Systems Respiratory: reports: shortness of breath Cardiovascular: denies: chest pain, palpitations, orthopnea, paroxysmal noc. dyspnea, edema, light headedness, other Gastrointestinal: denies: nausea, vomiting, abdominal pain, diarrhea, constipation, melena, hematochezia, other Genitourinary: denies: dysuria, frequency, incontinence, hematuria, retention, other - Medication Medications: Active Medications Generic Name Dose Route Start Last Admin Trade Name Freq PRN Reason Stop Dose Admin Acetaminophen 650 mg 07/20/20 10:03 07/24/20 22:27 Acetaminophen 325 Mg Tab PO 650 mg Q4H PRN Administration Headache/Fever/Mild Pain (1-3) Albuterol Sulfate 1 puff 07/23/20 10:27 07/23/20 12:24 Albuterol 200 Puff (6.7gm Inhaler) INH 1 puff [id number] PRN Administration Wheezing Ascorbic Acid 1,000 mg 07/20/20 09:00 07/31/20 08:40 Ascorbic Acid 500 Mg Chewable Tablet PO 1,000 mg DAILY TRISHA Administration Bisacodyl 10 mg 07/19/20 16:55 07/30/20 21:00 Bisacodyl 5 Mg Tab PO 10 mg DAILYPRN PRN Administration Constipation Calcium/Vitamin D 1 tab 07/20/20 21:00 07/31/20 08:44 Calcium Carbonate 600 Mg + Vit D Tab PO 1 tab BID TRISHA Administration Cholecalciferol 1,000 units 07/20/20 21:00 07/30/20 19:58 Cholecalciferol 1,000 Units (25 Mcg) Tab PO 1,000 units QPM TRISHA Administration Dexamethasone 6 mg 07/24/20 08:00 07/31/20 08:42 Dexamethasone 4 Mg Tab PO 6 mg QAM-WM TRISHA Administration Docusate Sodium 100 mg 07/21/20 09:00 07/31/20 08:44 Docusate 100 Mg Cap PO 100 mg DAILY TRISHA Administration Duloxetine HCl 60 mg 07/21/20 09:00 07/31/20 08:40 Duloxetine 60 Mg Cap PO 60 mg DAILY TRISHA Administration Fish Oil 1,000 mg 07/21/20 09:00 07/31/20 08:40 Fish Oil 1,000 Mg Cap PO 1,000 mg QAM TRISHA Administration Guaifenesin 200 mg 07/21/20 07:59 07/27/20 10:10 Diabetic Tussin 200 Mg/10 Ml Udcup PO 200 mg Q4H PRN Administration Cough Heparin Sodium (Porcine) 5,000 units 07/20/20 15:00 07/31/20 08:44 Heparin 5,000 Units/Ml Vial SC 5,000 units TID TRISHA Administration Iron/Minerals/Multivitamins 1 tab 07/20/20 21:00 07/30/20 19:59 Multivitamin W/ Minerals 1 Tab PO 1 tab HS TRISHA Administration Latanoprost 1 drop 07/20/20 21:00 07/31/20 08:50 Latanoprost 0.005% Ophth Soln 2.5 Ml Bottle EA EYE 1 drp HS TRISHA Administration Losartan Potassium 50 mg 07/21/20 09:00 07/31/20 08:39 Losartan 25 Mg Tab PO 50 mg DAILY TRISHA Administration Mirtazapine 15 mg 07/20/20 21:00 07/30/20 19:59 Mirtazapine 15 Mg Tab PO 15 mg HS TRISHA Administration Mometasone Furoate 200 mcg 07/30/20 06:30 07/31/20 12:00 Mometasone 100 Mcg/Puff (1 Inhaler) INH 2 inh BID-RT TRISHA Administration Ondansetron HCl 4 mg 07/20/20 10:03 07/20/20 21:42 Ondansetron Odt 4 Mg Tab PO 4 mg Q6H PRN Administration Nausea/Vomiting Pantoprazole Sodium 40 mg 07/21/20 09:00 07/31/20 08:44 Pantoprazole 40 Mg Tab PO 40 mg DAILY TRISHA Administration Pregabalin 50 mg 07/20/20 21:00 07/31/20 08:39 Pregabalin 50 Mg Cap PO 50 mg BID TRISHA Administration Simvastatin 10 mg 07/20/20 21:00 07/30/20 20:01 Simvastatin 10 Mg Tab PO 10 mg HS TRISHA Administration Timolol Maleate 1 drop 07/21/20 09:00 07/31/20 09:25 Timolol 0.5% Ophth Soln 5 Ml Bottle EA EYE 1 drp DAILY TRISHA Administration Torsemide 20 mg 07/20/20 21:00 07/31/20 08:39 Torsemide 20 Mg Tab PO 20 mg BID TRISHA Administration Zinc Sulfate 220 mg 07/20/20 09:00 07/31/20 08:49 Zinc Sulfate 220 Mg Cap PO 220 mg DAILY TRISHA Administration - Exam Neck: negative: supple, symmetric, no JVD, no thyromegaly, no lymphadenopathy, no carotid bruit, JVD Heart: negative: RRR, no murmur, no gallops, no rubs, normal peripheral pulses, irregular, diminshed peripheral pulses, murmur present, II/IV, III/IV Respiratory: negative: CTAB, no wheezes, no rales, no ronchi, normal chest expansion, no tachypnea, normal percussion, rales, rhonchi, tachypneic, wheezes Gastrointestinal: negative: soft, non-tender, non-distended, normal bowel sounds, no palpable masses, no hepatomegaly, no splenomegaly, no bruit, no guarding, no rigidity, tender to palpation, distended, diminished bowl sounds, voluntary guarding Hosp A/P (1) Acute respiratory failure with hypoxia Code(s): J96.01 - ACUTE RESPIRATORY FAILURE WITH HYPOXIA Status: Acute (2) Pneumonia due to COVID-19 virus Code(s): U07.1 - COVID-19; J12.89 - OTHER VIRAL PNEUMONIA Status: Acute (3) GERD (gastroesophageal reflux disease) Code(s): K21.9 - GASTRO-ESOPHAGEAL REFLUX DISEASE WITHOUT ESOPHAGITIS Status: Chronic Qualifiers: Esophagitis presence: without esophagitis Qualified Code(s): K21.9 - Gastro-esophageal reflux disease without esophagitis (4) Obesity (BMI 30-39.9) Code(s): E66.9 - OBESITY, UNSPECIFIED Status: Chronic (5) CKD (chronic kidney disease), stage IV Code(s): N18.4 - CHRONIC KIDNEY DISEASE, STAGE 4 (SEVERE) Status: Chronic - Plan Azithromycin discontinued we will continue Rocephin for now. Per nursing staff patient oxygen saturations have been around 91 to 92%. We will get an ABG. She may require higher flow or Ventimask. We will continue to trend CRP markers she is on DVT prophylaxis with heparin. She gets very short of breath when ambulating with physical therapy. patient currently on Ventimask satting 90 pharynx percent. We will continue steroids and DVT prophylaxis. Continue to trend inflammatory markers. 07/26 pt on venti mask. called daughter and left message. will continue steroids and dvt ppx. PT ordered. clinical course guarded. 07/27 patient currently on high flow we will continue to monitor we will continue DVT prophylaxis. She is on steroids. Patient's CRP elevated compared to her prior 1. Clinical course guarded. Will talk to infectious disease to see if she is a candidate for convalescent plasma if she continues to tolerate. Try to call patient's daughter left message. 07/28 patient received convalescent plasma. She still on high flow. Called patient's daughter left message again. Patient CRP trending downwards. We will continue to monitor. Overall prognosis is guarded. Physical therapy is working with the patient. 07/29 pt up in bed still on high flow. Patient's daughter called and updated. We will continue to trend CRP. We will continue antibiotics. 07/30 patient continues to be on high flow however has been titrated down per respiratory. Will trend CRP. Patient more awake and oriented today. Overall prognosis is guarded. Patient desats when gets up to the bedside commode. 07/31 pt still on high flow. Family updated. Her crp did go up will continue to monitor her. pt on dvt ppx and steroids.
[2020-07-31] MEDS ORDERED: Polyethylene Glycol 3350 17 GM Packet PO SCH (12:45)
[2020-07-31] MEDS ORDERED: Bisacodyl 5 MG TAB PO SCH (12:45)
[2020-07-31] MEDS: Cholecalciferol 1,000 UNITS (25 MCG) TAB PO SCH (21:18)
[2020-07-31] MEDS: Multivitamin W/ Minerals 1 TAB PO SCH (21:18)
[2020-07-31] MEDS: Mirtazapine 15 MG TAB PO SCH (21:18)
[2020-07-31] MEDS: Simvastatin 10 MG TAB PO SCH (21:19)
[2020-08-01] MEDS: Mometasone 100 MCG/PUFF (1 INHALER) INH SCH ×2 (09:10→19:05)
[2020-08-01] MEDS: Losartan 25 MG TAB PO SCH (09:13)
[2020-08-01] MEDS: Fish Oil 1,000 MG CAP PO SCH (09:13)
[2020-08-01] MEDS: Heparin 5,000 UNITS/ML VIAL SC SCH ×3 (09:13→19:57)
[2020-08-01] MEDS: Ascorbic Acid 500 mg Chewable Tablet PO SCH (09:13)
[2020-08-01] MEDS: Docusate 100 MG CAP PO SCH (09:13)
[2020-08-01] MEDS: Calcium Carbonate 600 MG + Vit D TAB PO SCH ×2 (09:13→19:56)
[2020-08-01] MEDS: Dexamethasone 4 MG TAB PO SCH (09:13)
[2020-08-01] MEDS: Pregabalin 50 MG CAP PO SCH ×2 (09:14→19:56)
[2020-08-01] MEDS: Timolol 0.5% Ophth Soln 5 ml Bottle EA EYE SCH (09:14)
[2020-08-01] MEDS: Zinc Sulfate 220 MG CAP PO SCH (09:14)
[2020-08-01] MEDS: DULoxetine 60 MG CAP PO SCH (09:15)
[2020-08-01] MEDS: Torsemide 20 MG TAB PO SCH ×2 (09:18→19:56)
--- NOTE | 2020-08-01 15:11 | PDOC.HOSPP ---
- Subjective Encounter Date: 08/01/20 Encounter Time: 11:00 Subjective: Patient up in bed did well with therapy yesterday. She still on high flow we will continue to titrate her oxygen down. - Objective Vital Signs & Weight: Vital Signs (12 hours) Temp Pulse Resp BP BP Pulse Ox Pulse Ox 08/01/20 13:45 97.2 F L 73 20 92 L 08/01/20 10:30 88 L 08/01/20 09:15 97.7 F 63 20 103/63 92 L 08/01/20 09:14 61 08/01/20 08:00 92 L 08/01/20 04:00 97.8 F 61 20 112/72 93 L Pulse Ox Pulse Ox 08/01/20 13:45 08/01/20 10:30 80 L 90 L 08/01/20 09:15 08/01/20 09:14 08/01/20 08:00 08/01/20 04:00 Weight Admit Weight 268 lb 15.424 oz Weight 268 lb 15.423 oz I&O: 07/31/20 08/01/20 08/02/20 06:59 06:59 06:59 Intake Total 950 850 360 Balance 950 850 360 Result Diagrams: 07/28/20 05:51 07/31/20 05:27 Hospitalist ROS - Review of Systems Cardiovascular: denies: chest pain, palpitations, orthopnea, paroxysmal noc. dys pnea, edema, light headedness, other Gastrointestinal: denies: nausea, vomiting, abdominal pain, diarrhea, constipation, melena, hematochezia, other Genitourinary: denies: dysuria, frequency, incontinence, hematuria, retention, other - Medication Medications: Active Medications Generic Name Dose Route Start Last Admin Trade Name Freq PRN Reason Stop Dose Admin Acetaminophen 650 mg 07/20/20 10:03 07/24/20 22:27 Acetaminophen 325 Mg Tab PO 650 mg Q4H PRN Administration Headache/Fever/Mild Pain (1-3) Albuterol Sulfate 1 puff 07/23/20 10:27 07/23/20 12:24 Albuterol 200 Puff (6.7gm Inhaler) INH 1 puff [id number] PRN Administration Wheezing Ascorbic Acid 1,000 mg 07/20/20 09:00 08/01/20 09:13 Ascorbic Acid 500 Mg Chewable Tablet PO 1,000 mg DAILY TRISHA Administration Bisacodyl 10 mg 07/19/20 16:55 07/30/20 21:00 Bisacodyl 5 Mg Tab PO 10 mg DAILYPRN PRN Administration Constipation Calcium/Vitamin D 1 tab 07/20/20 21:00 08/01/20 09:13 Calcium Carbonate 600 Mg + Vit D Tab PO 1 tab BID TRISHA Administration Cholecalciferol 1,000 units 07/20/20 21:00 07/31/20 21:18 Cholecalciferol 1,000 Units (25 Mcg) Tab PO 1,000 units QPM TRISHA Administration Dexamethasone 6 mg 07/24/20 08:00 08/01/20 09:13 Dexamethasone 4 Mg Tab PO 6 mg QAM-WM TRISHA Administration Docusate Sodium 100 mg 07/21/20 09:00 08/01/20 09:13 Docusate 100 Mg Cap PO 100 mg DAILY TRISHA Administration Duloxetine HCl 60 mg 07/21/20 09:00 08/01/20 09:15 Duloxetine 60 Mg Cap PO 60 mg DAILY TRIHSA Administration Fish Oil 1,000 mg 07/21/20 09:00 08/01/20 09:13 Fish Oil 1,000 Mg Cap PO 1,000 mg QAM TRISHA Administration Guaifenesin 200 mg 07/21/20 07:59 07/27/20 10:10 Diabetic Tussin 200 Mg/10 Ml Udcup PO 200 mg Q4H PRN Administration Cough Heparin Sodium (Porcine) 5,000 units 07/20/20 15:00 08/01/20 09:13 Heparin 5,000 Units/Ml Vial SC 5,000 units TID TRISHA Administration Iron/Minerals/Multivitamins 1 tab 07/20/20 21:00 07/31/20 21:18 Multivitamin W/ Minerals 1 Tab PO 1 tab HS TRISHA Administration Latanoprost 1 drop 07/20/20 21:00 07/31/20 21:18 Latanoprost 0.005% Ophth Soln 2.5 Ml Bottle EA EYE 1 drp HS TRISHA Administration Losartan Potassium 50 mg 07/21/20 09:00 08/01/20 09:13 Losartan 25 Mg Tab PO 50 mg DAILY TRISHA Administration Mirtazapine 15 mg 07/20/20 21:00 07/31/20 21:18 Mirtazapine 15 Mg Tab PO 15 mg HS TRISHA Administration Mometasone Furoate 200 mcg 07/30/20 06:30 08/01/20 09:10 Mometasone 100 Mcg/Puff (1 Inhaler) INH 2 inh BID-RT TRISHA Administration Ondansetron HCl 4 mg 07/20/20 10:03 07/20/20 21:42 Ondansetron Odt 4 Mg Tab PO 4 mg Q6H PRN Administration Nausea/Vomiting Pantoprazole Sodium 40 mg 07/21/20 09:00 08/01/20 09:14 Pantoprazole 40 Mg Tab PO 40 mg DAILY TRISHA Administration Pregabalin 50 mg 07/20/20 21:00 08/01/20 09:14 Pregabalin 50 Mg Cap PO 50 mg BID TRISHA Administration Simvastatin 10 mg 07/20/20 21:00 07/31/20 21:19 Simvastatin 10 Mg Tab PO 10 mg HS TRISHA Administration Timolol Maleate 1 drop 07/21/20 09:00 08/01/20 09:14 Timolol 0.5% Ophth Soln 5 Ml Bottle EA EYE 1 drp DAILY TRISHA Administration Torsemide 20 mg 07/20/20 21:00 08/01/20 09:18 Torsemide 20 Mg Tab PO 20 mg BID TRISHA Administration Zinc Sulfate 220 mg 07/20/20 09:00 08/01/20 09:14 Zinc Sulfate 220 Mg Cap PO 220 mg DAILY TRISHA Administration - Exam Neck: negative: supple, symmetric, no JVD, no thyromegaly, no lymphadenopathy, no carotid bruit, JVD Heart: negative: RRR, no murmur, no gallops, no rubs, normal peripheral pulses, irregular, diminshed peripheral pulses, murmur present, II/IV, III/IV Respiratory: negative: CTAB, no wheezes, no rales, no ronchi, normal chest expansion, no tachypnea, normal percussion, rales, rhonchi, tachypneic, wheezes Gastrointestinal: negative: soft, non-tender, non-distended, normal bowel sounds, no palpable masses, no hepatomegaly, no splenomegaly, no bruit, no guarding, no rigidity, tender to palpation, distended, diminished bowl sounds, voluntary guarding Hosp A/P (1) Acute respiratory failure with hypoxia Code(s): J96.01 - ACUTE RESPIRATORY FAILURE WITH HYPOXIA Status: Acute (2) Pneumonia due to COVID-19 virus Code(s): U07.1 - COVID-19; J12.89 - OTHER VIRAL PNEUMONIA Status: Acute (3) GERD (gastroesophageal reflux disease) Code(s): K21.9 - GASTRO-ESOPHAGEAL REFLUX DISEASE WITHOUT ESOPHAGITIS Status: Chronic Qualifiers: Esophagitis presence: without esophagitis Qualified Code(s): K21.9 - Gastro-esophageal reflux disease without esophagitis (4) Obesity (BMI 30-39.9) Code(s): E66.9 - OBESITY, UNSPECIFIED Status: Chronic (5) CKD (chronic kidney disease), stage IV Code(s): N18.4 - CHRONIC KIDNEY DISEASE, STAGE 4 (SEVERE) Status: Chronic - Plan Azithromycin discontinued we will continue Rocephin for now. Per nursing staff patient oxygen saturations have been around 91 to 92%. We will get an ABG. She may require higher flow or Ventimask. We will continue to trend CRP markers she is on DVT prophylaxis with heparin. She gets very short of breath when ambulating with physical therapy. patient currently on Ventimask satting 90 pharynx percent. We will continue steroids and DVT prophylaxis. Continue to trend inflammatory markers. 07/26 pt on venti mask. called daughter and left message. will continue steroids and dvt ppx. PT ordered. clinical course guarded. 07/27 patient currently on high flow we will continue to monitor we will continue DVT prophylaxis. She is on steroids. Patient's CRP elevated compared to her prior 1. Clinical course guarded. Will talk to infectious disease to see if she is a candidate for convalescent plasma if she continues to tolerate. Try to call patient's daughter left message. 07/28 patient received convalescent plasma. She still on high flow. Called patient's daughter left message again. Patient CRP trending downwards. We will continue to monitor. Overall prognosis is guarded. Physical therapy is working with the patient. 07/29 pt up in bed still on high flow. Patient's daughter called and updated. We will continue to trend CRP. We will continue antibiotics. 07/30 patient continues to be on high flow however has been titrated down per respiratory. Will trend CRP. Patient more awake and oriented today. Overall prognosis is guarded. Patient desats when gets up to the bedside commode. 07/31 pt still on high flow. Family updated. Her crp did go up will continue to monitor her. pt on dvt ppx and steroids. 08/01 we will continue current treatment. We will try to continue titrating patient's high flow to NC. Patient did have elevated CRP we will check another CRP in a.m. patient on steroids 9 out of 10 days.
[2020-08-01] MEDS: Multivitamin W/ Minerals 1 TAB PO SCH (19:56)
[2020-08-01] MEDS: Simvastatin 10 MG TAB PO SCH (19:56)
[2020-08-01] MEDS: Cholecalciferol 1,000 UNITS (25 MCG) TAB PO SCH (19:57)
[2020-08-01] MEDS: Latanoprost 0.005% Ophth Soln 2.5 ml Bottle EA EYE SCH (19:57)
[2020-08-01] MEDS: Mirtazapine 15 MG TAB PO SCH (19:58)
[2020-08-02 06:09] LABS: INR-International Normal Ratio 0.9; Prothrombin Time 12.5 sec (12.0-14.7)
[2020-08-02 06:10] LABS: PTT 31.6 sec (22.9-36.1)
[2020-08-02 06:11] LABS: #Basophils 0.1 thou/uL (0.0-0.2); #Eosinphils 0.2 thou/uL (0.0-0.7); #Lymphocytes 1.9 thou/uL (1.20-3.40); #Monocytes 0.4 thou/uL (0.11-0.59); #Neutrophils 10.3 thou/uL (1.40-6.50); %Basophils 0.4 % (0.0-1.0); %Eosinophils 1.2 % (0.0-10.0); %Lymphocytes 14.8 % (21.0-51.0); %Monocytes 2.9 % (0.0-10.0); %Neutrophils 80.6 % (42.0-75.0); Hemoglobin 10.4 g/dL (12.0-16.0); Mean Corpuscular HGB CONC 31.9 g/dL (32.0-36.0); Mean Corpuscular Hemoglobin 28.5 pg (27.0-31.0); Mean Corpuscular Volume 89.5 fL (78.0-98.0); Mean Platelet Volume 7.4 fL (7.4-10.4); Platelet Count 381 thou/uL (130-400); RBC Distribution Width 13.7 % (11.5-14.5); Red Blood Cell (RBC) Count 3.66 mill/uL (4.20-5.40); White Blood Cell (WBC) Count 12.8 thou/uL (4.8-10.8)
[2020-08-02 06:28] LABS: ALT (SGPT) 40 U/L (8-55); AST (SGOT) 25 U/L (5-34); Albumin 3.2 g/dL (3.4-4.8); Alkaline Phosphatase 52 U/L (40-110); Anion Gap 15 mmol/L (10-20); BUN (Urea Nitrogen) 50 mg/dL (9.8-20.1); Bilirubin, Total 0.3 mg/dL (0.2-1.2); Calc. Creatinine Clearance 51 mL/min (70-130); Calcium 9.3 mg/dL (7.8-10.44); Carbon Dioxide 28 mmol/L (23-31); Chloride 96 mmol/L (98-107); Estimated GFR-MDRD 31; Globulin 3.5 g/dL (2.4-3.5); Glucose 98 mg/dL (83-110); Potassium 4.1 mmol/L (3.5-5.1); Protein, Total 6.7 g/dL (6.0-8.3); Sodium 135 mmol/L (136-145)
[2020-08-02] MEDS: DULoxetine 60 MG CAP PO SCH (09:43)
[2020-08-02] MEDS: Ascorbic Acid 500 mg Chewable Tablet PO SCH (09:43)
[2020-08-02] MEDS: Losartan 25 MG TAB PO SCH (09:44)
[2020-08-02] MEDS: Fish Oil 1,000 MG CAP PO SCH (09:44)
[2020-08-02] MEDS: Calcium Carbonate 600 MG + Vit D TAB PO SCH ×2 (09:44→19:59)
[2020-08-02] MEDS: Torsemide 20 MG TAB PO SCH ×2 (09:44→20:00)
[2020-08-02] MEDS: Pregabalin 50 MG CAP PO SCH ×2 (09:44→20:00)
[2020-08-02] MEDS: Dexamethasone 4 MG TAB PO SCH (09:45)
[2020-08-02] MEDS: Heparin 5,000 UNITS/ML VIAL SC SCH ×3 (09:45→19:59)
[2020-08-02] MEDS: Docusate 100 MG CAP PO SCH (09:45)
[2020-08-02] MEDS: Mometasone 100 MCG/PUFF (1 INHALER) INH SCH ×2 (09:45→20:25)
[2020-08-02] MEDS: Timolol 0.5% Ophth Soln 5 ml Bottle EA EYE SCH (09:46)
[2020-08-02] MEDS: Zinc Sulfate 220 MG CAP PO SCH (09:48)
--- NOTE | 2020-08-02 09:52 | RAD ---
PORTABLE CHEST: Date: 08/02/2020 INDICATION: Leukocytosis. COMPARISON: 07/28/2020. FINDINGS/IMPRESSION: There are bilateral peripheral hazy and patchy alveolar infiltrates. Evidence of bilateral effusions. Cardiomegaly and mild vascular engorgement. Findings do not appear significantly changed from 2019. POS: OFF
[2020-08-02 11:07] LABS: Actual Bicarbonate (HCO3a) 30.3 mEq/L (22-28); Base Excess (BEa) 6.9 mEq/L (-2.0 to +3.0); CO2 Tension 38.8 mmHg (35.0-45.0); Calcium, Ionized (arterial) 1.19 mmol/L (1.12-1.30); Hemoglobin (Hb) 13.3 g/dL (12.0-16.0); Potassium - ABG Lab 3.62 mmol/L (3.70-5.30); pH, Arterial 7.51 (7.35-7.45)
[2020-08-02 11:12] LABS: Puncture Site LRA
--- NOTE | 2020-08-02 17:23 | PDOC.HOSPP ---
- Subjective Encounter Date: 08/02/20 Encounter Time: 11:00 Subjective: Patient up in bed states she feels much better. Patient worked with PT yesterday did well. - Objective Vital Signs & Weight: Vital Signs (12 hours) Temp Pulse Resp Pulse Ox 08/02/20 14:42 98 08/02/20 12:00 99 08/02/20 08:00 97.6 F 62 18 91 L Weight Admit Weight 268 lb 15.424 oz Weight 268 lb 15.423 oz I&O: 08/01/20 08/02/20 08/03/20 06:59 06:59 06:59 Intake Total 850 1160 440 Balance 850 1160 440 Result Diagrams: 08/02/20 05:34 08/02/20 05:34 Hospitalist ROS - Review of Systems Cardiovascular: denies: chest pain, palpitations, orthopnea, paroxysmal noc. dyspnea, edema, light headedness, other Gastrointestinal: denies: nausea, vomiting, abdominal pain, diarrhea, consti pation, melena, hematochezia, other Genitourinary: denies: dysuria, frequency, incontinence, hematuria, retention, other - Medication Medications: Active Medications Generic Name Dose Route Start Last Admin Trade Name Freq PRN Reason Stop Dose Admin Acetaminophen 650 mg 07/20/20 10:03 07/24/20 22:27 Acetaminophen 325 Mg Tab PO 650 mg Q4H PRN Administration Headache/Fever/Mild Pain (1-3) Albuterol Sulfate 1 puff 07/23/20 10:27 07/23/20 12:24 Albuterol 200 Puff (6.7gm Inhaler) INH 1 puff [id number] PRN Administration Wheezing Ascorbic Acid 1,000 mg 07/20/20 09:00 08/02/20 09:43 Ascorbic Acid 500 Mg Chewable Tablet PO 1,000 mg DAILY TRISHA Administration Bisacodyl 10 mg 07/19/20 16:55 07/30/20 21:00 Bisacodyl 5 Mg Tab PO 10 mg DAILYPRN PRN Administration Constipation Calcium/Vitamin D 1 tab 07/20/20 21:00 08/02/20 09:44 Calcium Carbonate 600 Mg + Vit D Tab PO 1 tab BID TRISHA Administration Cholecalciferol 1,000 units 07/20/20 21:00 08/01/20 19:57 Cholecalciferol 1,000 Units (25 Mcg) Tab PO 1,000 units QPM TRISHA Administration Dexamethasone 6 mg 07/24/20 08:00 08/02/20 09:45 Dexamethasone 4 Mg Tab PO 6 mg QAM-WM TRISHA Administration Docusate Sodium 100 mg 07/21/20 09:00 08/02/20 09:45 Docusate 100 Mg Cap PO 100 mg DAILY TRISHA Administration Duloxetine HCl 60 mg 07/21/20 09:00 08/02/20 09:43 Duloxetine 60 Mg Cap PO 60 mg DAILY TRISHA Administration Fish Oil 1,000 mg 07/21/20 09:00 08/02/20 09:44 Fish Oil 1,000 Mg Cap PO 1,000 mg QAM TRISHA Administration Guaifenesin 200 mg 07/21/20 07:59 07/27/20 10:10 Diabetic Tussin 200 Mg/10 Ml Udcup PO 200 mg Q4H PRN Administration Cough Heparin Sodium (Porcine) 5,000 units 07/20/20 15:00 08/02/20 14:29 Heparin 5,000 Units/Ml Vial SC 5,000 units TID TRISHA Administration Iron/Minerals/Multivitamins 1 tab 07/20/20 21:00 08/01/20 19:56 Multivitamin W/ Minerals 1 Tab PO 1 tab HS TRISHA Administration Latanoprost 1 drop 07/20/20 21:00 08/01/20 19:57 Latanoprost 0.005% Ophth Soln 2.5 Ml Bottle EA EYE 1 drp HS TRISHA Administration Losartan Potassium 50 mg 07/21/20 09:00 08/02/20 09:44 Losartan 25 Mg Tab PO 50 mg DAILY TRISHA Administration Mirtazapine 15 mg 07/20/20 21:00 08/01/20 19:58 Mirtazapine 15 Mg Tab PO 15 mg HS TRISHA Administration Mometasone Furoate 200 mcg 07/30/20 06:30 08/02/20 09:45 Mometasone 100 Mcg/Puff (1 Inhaler) INH 1 inh BID-RT TRISHA Administration Ondansetron HCl 4 mg 07/20/20 10:03 07/20/20 21:42 Ondansetron Odt 4 Mg Tab PO 4 mg Q6H PRN Administration Nausea/Vomiting Pantoprazole Sodium 40 mg 07/21/20 09:00 08/02/20 09:44 Pantoprazole 40 Mg Tab PO 40 mg DAILY TRISHA Administration Pregabalin 50 mg 07/20/20 21:00 08/02/20 09:44 Pregabalin 50 Mg Cap PO 50 mg BID TRISHA Administration Simvastatin 10 mg 07/20/20 21:00 08/01/20 19:56 Simvastatin 10 Mg Tab PO 10 mg HS TRISHA Administration Timolol Maleate 1 drop 07/21/20 09:00 08/02/20 09:46 Timolol 0.5% Ophth Soln 5 Ml Bottle EA EYE 1 drp DAILY TRISHA Administration Torsemide 20 mg 07/20/20 21:00 08/02/20 09:44 Torsemide 20 Mg Tab PO 20 mg BID TRISHA Administration Zinc Sulfate 220 mg 07/20/20 09:00 08/02/20 09:48 Zinc Sulfate 220 Mg Cap PO 220 mg DAILY TRISHA Administration - Exam Neck: negative: supple, symmetric, no JVD, no thyromegaly, no lymphadenopathy, no carotid bruit, JVD Heart: negative: RRR, no murmur, no gallops, no rubs, normal peripheral pulses, irregular, diminshed peripheral pulses, murmur present, II/IV, III/IV Respiratory: negative: CTAB, no wheezes, no rales, no ronchi, normal chest expansion, no tachypnea, normal percussion, rales, rhonchi, tachypneic, wheezes Gastrointestinal: negative: soft, non-tender, non-distended, normal bowel sounds, no palpable masses, no hepatomegaly, no splenomegaly, no bruit, no guarding, no rigidity, tender to palpation, distended, diminished bowl sounds, voluntary guarding Hosp A/P (1) Acute respiratory failure with hypoxia Code(s): J96.01 - ACUTE RESPIRATORY FAILURE WITH HYPOXIA Status: Acute (2) Pneumonia due to COVID-19 virus Code(s): U07.1 - COVID-19; J12.89 - OTHER VIRAL PNEUMONIA Status: Acute (3) GERD (gastroesophageal reflux disease) Code(s): K21.9 - GASTRO-ESOPHAGEAL REFLUX DISEASE WITHOUT ESOPHAGITIS Status: Chronic Qualifiers: Esophagitis presence: without esophagitis Qualified Code(s): K21.9 - Gastro-esophageal reflux disease without esophagitis (4) Obesity (BMI 30-39.9) Code(s): E66.9 - OBESITY, UNSPECIFIED Status: Chronic (5) CKD (chronic kidney disease), stage IV Code(s): N18.4 - CHRONIC KIDNEY DISEASE, STAGE 4 (SEVERE) Status: Chronic - Plan Azithromycin discontinued we will continue Rocephin for now. Per nursing staff patient oxygen saturations have been around 91 to 92%. We will get an ABG. She may require higher flow or Ventimask. We will continue to trend CRP markers she is on DVT prophylaxis with heparin. She gets very short of breath when ambulati ng with physical therapy. patient currently on Ventimask satting 90 pharynx percent. We will continue steroids and DVT prophylaxis. Continue to trend inflammatory markers. 07/26 pt on venti mask. called daughter and left message. will continue steroids and dvt ppx. PT ordered. clinical course guarded. 07/27 patient currently on high flow we will continue to monitor we will continue DVT prophylaxis. She is on steroids. Patient's CRP elevated compared to her prior 1. Clinical course guarded. Will talk to infectious disease to see if she is a candidate for convalescent plasma if she continues to tolerate. Try to call patient's daughter left message. 07/28 patient received convalescent plasma. She still on high flow. Called patient's daughter left message again. Patient CRP trending downwards. We will continue to monitor. Overall prognosis is guarded. Physical therapy is working with the patient. 07/29 pt up in bed still on high flow. Patient's daughter called and updated. We will continue to trend CRP. We will continue antibiotics. 07/30 patient continues to be on high flow however has been titrated down per respiratory. Will trend CRP. Patient more awake and oriented today. Overall prognosis is guarded. Patient desats when gets up to the bedside commode. 07/31 pt still on high flow. Family updated. Her crp did go up will continue to monitor her. pt on dvt ppx and steroids. 08/01 we will continue current treatment. We will try to continue titrating patient's high flow to NC. Patient did have elevated CRP we will check another CRP in a.m. patient on steroids 9 out of 10 days. 08/02 patient's oxygen saturation still in the 90s. ABG done which indicated hypoxia. Patient's oxygen saturation was 50%. Spoke with respiratory therapy to increase her oxygenation on the high flow. Patient's daughter Michelle called and updated. CRP continues to trend down. Patient has completed 10 days of Decadron however given her current symptoms I will continue it for now. We will continue heparin for DVT prophylaxis.
[2020-08-02] MEDS: Latanoprost 0.005% Ophth Soln 2.5 ml Bottle EA EYE SCH (19:59)
[2020-08-02] MEDS: Cholecalciferol 1,000 UNITS (25 MCG) TAB PO SCH (19:59)
[2020-08-02] MEDS: Mirtazapine 15 MG TAB PO SCH (19:59)
[2020-08-02] MEDS: Simvastatin 10 MG TAB PO SCH (20:00)
[2020-08-02] MEDS: Multivitamin W/ Minerals 1 TAB PO SCH (20:00)
[2020-08-03 06:15] LABS: #Eosinphils 0.1 thou/uL (0.0-0.7); #Lymphocytes 1.5 thou/uL (1.20-3.40); #Monocytes 0.4 thou/uL (0.11-0.59); #Neutrophils 9.3 thou/uL (1.40-6.50); %Basophils 0.1 % (0.0-1.0); %Eosinophils 0.6 % (0.0-10.0); %Lymphocytes 13.5 % (21.0-51.0); %Monocytes 3.7 % (0.0-10.0); %Neutrophils 82.2 % (42.0-75.0); Hemoglobin 10.1 g/dL (12.0-16.0); Mean Corpuscular HGB CONC 32.4 g/dL (32.0-36.0); Mean Corpuscular Hemoglobin 28.8 pg (27.0-31.0); Mean Corpuscular Volume 89.1 fL (78.0-98.0); Mean Platelet Volume 7.4 fL (7.4-10.4); Platelet Count 359 thou/uL (130-400); RBC Distribution Width 13.8 % (11.5-14.5); Red Blood Cell (RBC) Count 3.49 mill/uL (4.20-5.40); White Blood Cell (WBC) Count 11.3 thou/uL (4.8-10.8)
[2020-08-03] MEDS: Mometasone 100 MCG/PUFF (1 INHALER) INH SCH ×2 (06:58→18:20)
[2020-08-03] MEDS: Pregabalin 50 MG CAP PO SCH ×2 (07:58→20:17)
[2020-08-03] MEDS: Losartan 25 MG TAB PO SCH ×2 (07:58→08:24)
[2020-08-03] MEDS: Docusate 100 MG CAP PO SCH (07:58)
[2020-08-03] MEDS: Calcium Carbonate 600 MG + Vit D TAB PO SCH ×2 (07:58→20:17)
[2020-08-03] MEDS: Zinc Sulfate 220 MG CAP PO SCH (07:59)
[2020-08-03] MEDS: Fish Oil 1,000 MG CAP PO SCH (07:59)
[2020-08-03] MEDS: Ascorbic Acid 500 mg Chewable Tablet PO SCH (07:59)
[2020-08-03] MEDS: DULoxetine 60 MG CAP PO SCH (07:59)
[2020-08-03] MEDS: Heparin 5,000 UNITS/ML VIAL SC SCH ×3 (08:00→20:17)
[2020-08-03] MEDS: Timolol 0.5% Ophth Soln 5 ml Bottle EA EYE SCH (08:00)
[2020-08-03] MEDS: Dexamethasone 4 MG TAB PO SCH (08:01)
[2020-08-03] MEDS: Torsemide 20 MG TAB PO SCH ×2 (08:05→20:18)
--- NOTE | 2020-08-03 14:09 | PDOC.HOSPP ---
- Subjective Encounter Date: 08/03/20 Encounter Time: 14:08 Subjective: Ms. Asif was seen today in follow-up of COVID pneumonia. She says her only problem is her oxygen. She says she does not feel bad now. She denies chest pain, no abdominal pain no diarrhea. - Objective Vital Signs & Weight: Vital Signs (12 hours) Temp Pulse Resp BP Pulse Ox 08/03/20 11:03 97.6 F 62 20 143/67 H 98 08/03/20 08:25 97.1 F L 58 L 20 99/62 99 08/03/20 08:00 99 Weight Admit Weight 268 lb 15.424 oz Weight 268 lb 15.423 oz I&O: 08/02/20 08/03/20 08/04/20 06:59 06:59 06:59 Intake Total 1160 1820 Balance 1160 1820 Result Diagrams: 08/03/20 05:48 08/02/20 05:34 Hospitalist ROS - Medication Medications: Active Medications Generic Name Dose Route Start Last Admin Trade Name Freq PRN Reason Stop Dose Admin Acetaminophen 650 mg 07/20/20 10:03 07/24/20 22:27 Acetaminophen 325 Mg Tab PO 650 mg Q4H PRN Administration Headache/Fever/Mild Pain (1-3) Albuterol Sulfate 1 puff 07/23/20 10:27 07/23/20 12:24 Albuterol 200 Puff (6.7gm Inhaler) INH 1 puff [id number] PRN Administration Wheezing Ascorbic Acid 1,000 mg 07/20/20 09:00 08/03/20 07:59 Ascorbic Acid 500 Mg Chewable Tablet PO 1,000 mg DAILY TRISHA Administration Bisacodyl 10 mg 07/19/20 16:55 07/30/20 21:00 Bisacodyl 5 Mg Tab PO 10 mg DAILYPRN PRN Administration Constipation Calcium/Vitamin D 1 tab 07/20/20 21:00 08/03/20 07:58 Calcium Carbonate 600 Mg + Vit D Tab PO 1 tab BID TRISHA Administration Cholecalciferol 1,000 units 07/20/20 21:00 08/02/20 19:59 Cholecalciferol 1,000 Units (25 Mcg) Tab PO 1,000 units QPM TRISHA Administration Dexamethasone 6 mg 07/24/20 08:00 08/03/20 08:01 Dexamethasone 4 Mg Tab PO 6 mg QAM-WM TRISHA Administration Docusate Sodium 100 mg 07/21/20 09:00 08/03/20 07:58 Docusate 100 Mg Cap PO 100 mg DAILY TRISHA Administration Duloxetine HCl 60 mg 07/21/20 09:00 08/03/20 07:59 Duloxetine 60 Mg Cap PO 60 mg DAILY TRISHA Administration Fish Oil 1,000 mg 07/21/20 09:00 08/03/20 07:59 Fish Oil 1,000 Mg Cap PO 1,000 mg QAM TRISHA Administration Guaifenesin 200 mg 07/21/20 07:59 07/27/20 10:10 Diabetic Tussin 200 Mg/10 Ml Udcup PO 200 mg Q4H PRN Administration Cough Heparin Sodium (Porcine) 5,000 units 07/20/20 15:00 08/03/20 08:00 Heparin 5,000 Units/Ml Vial SC 5,000 units TID TRISHA Administration Iron/Minerals/Multivitamins 1 tab 07/20/20 21:00 08/02/20 20:00 Multivitamin W/ Minerals 1 Tab PO 1 tab HS TRISHA Administration Latanoprost 1 drop 07/20/20 21:00 08/02/20 19:59 Latanoprost 0.005% Ophth Soln 2.5 Ml Bottle EA EYE 1 drp HS TRISHA Administration Losartan Potassium 50 mg 07/21/20 09:00 08/03/20 08:24 Losartan 25 Mg Tab PO Not Given DAILY TRISHA Mirtazapine 15 mg 07/20/20 21:00 08/02/20 19:59 Mirtazapine 15 Mg Tab PO 15 mg HS TRISHA Administration Mometasone Furoate 200 mcg 07/30/20 06:30 08/03/20 06:58 Mometasone 100 Mcg/Puff (1 Inhaler) INH 1 inh BID-RT TRISHA Administration Ondansetron HCl 4 mg 07/20/20 10:03 07/20/20 21:42 Ondansetron Odt 4 Mg Tab PO 4 mg Q6H PRN Administration Nausea/Vomiting Pantoprazole Sodium 40 mg 07/21/20 09:00 08/03/20 07:59 Pantoprazole 40 Mg Tab PO 40 mg DAILY TRISHA Administration Pregabalin 50 mg 07/20/20 21:00 08/03/20 07:58 Pregabalin 50 Mg Cap PO 50 mg BID TRISHA Administration Simvastatin 10 mg 07/20/20 21:00 08/02/20 20:00 Simvastatin 10 Mg Tab PO 10 mg HS TRISHA Administration Timolol Maleate 1 drop 07/21/20 09:00 08/03/20 08:00 Timolol 0.5% Ophth Soln 5 Ml Bottle EA EYE 1 drp DAILY TRISHA Administration Torsemide 20 mg 07/20/20 21:00 08/03/20 08:05 Torsemide 20 Mg Tab PO 20 mg BID TRISHA Administration Zinc Sulfate 220 mg 07/20/20 09:00 08/03/20 07:59 Zinc Sulfate 220 Mg Cap PO 220 mg DAILY TRISHA Administration - Exam General Appearance: NAD Eye: PERRL, anicteric sclera Heart: RRR, no murmur, no gallops, no rubs, normal peripheral pulses Respiratory: no wheezes, no ronchi, rales (+ rales at both bases) Gastrointestinal: soft, non-tender, non-distended, normal bowel sounds, no palpable masses, no hepatomegaly, no splenomegaly Extremities: no cyanosis, no clubbing, no edema Hosp A/P (1) Acute respiratory failure with hypoxia Code(s): J96.01 - ACUTE RESPIRATORY FAILURE WITH HYPOXIA Status: Acute (2) Pneumonia due to COVID-19 virus Code(s): U07.1 - COVID-19; J12.89 - OTHER VIRAL PNEUMONIA Status: Acute (3) CKD (chronic kidney disease), stage IV Code(s): N18.4 - CHRONIC KIDNEY DISEASE, STAGE 4 (SEVERE) Status: Chronic (4) GERD (gastroesophageal reflux disease) Code(s): K21.9 - GASTRO-ESOPHAGEAL REFLUX DISEASE WITHOUT ESOPHAGITIS Status: Chronic Qualifiers: Esophagitis presence: without esophagitis Qualified Code(s): K21.9 - Gastro-esophageal reflux disease without esophagitis - Plan * Acute respiratory failure due to COVID pneumonia- she continues to require high flow oxygen * Continue IV decadron * Continue incentive spirometry, and ambulation in the room * Inflammatory markers are beginning to trend down * CKD- stage 4 stable
[2020-08-03] MEDS: Multivitamin W/ Minerals 1 TAB PO SCH (20:17)
[2020-08-03] MEDS: Latanoprost 0.005% Ophth Soln 2.5 ml Bottle EA EYE SCH (20:17)
[2020-08-03] MEDS: Cholecalciferol 1,000 UNITS (25 MCG) TAB PO SCH (20:17)
[2020-08-03] MEDS: Mirtazapine 15 MG TAB PO SCH (20:17)
[2020-08-03] MEDS: Simvastatin 10 MG TAB PO SCH (20:18)
[2020-08-04] MEDS: Calcium Carbonate 600 MG + Vit D TAB PO SCH ×2 (07:37→20:09)
[2020-08-04] MEDS: Ascorbic Acid 500 mg Chewable Tablet PO SCH (07:37)
[2020-08-04] MEDS: DULoxetine 60 MG CAP PO SCH (07:37)
[2020-08-04] MEDS: Torsemide 20 MG TAB PO SCH ×2 (07:37→20:09)
[2020-08-04] MEDS: Dexamethasone 4 MG TAB PO SCH (07:38)
[2020-08-04] MEDS: Fish Oil 1,000 MG CAP PO SCH (07:38)
[2020-08-04] MEDS: Heparin 5,000 UNITS/ML VIAL SC SCH ×3 (07:38→20:10)
[2020-08-04] MEDS: Docusate 100 MG CAP PO SCH (07:38)
[2020-08-04] MEDS: Losartan 25 MG TAB PO SCH (07:38)
[2020-08-04] MEDS: Mometasone 100 MCG/PUFF (1 INHALER) INH SCH ×2 (07:39→17:31)
[2020-08-04] MEDS: Timolol 0.5% Ophth Soln 5 ml Bottle EA EYE SCH (07:40)
[2020-08-04] MEDS: Pregabalin 50 MG CAP PO SCH ×2 (07:40→20:10)
[2020-08-04] MEDS: Zinc Sulfate 220 MG CAP PO SCH (07:43)
--- NOTE | 2020-08-04 12:43 | PDOC.HOSPP ---
- Subjective Encounter Date: 08/04/20 Encounter Time: 12:41 Subjective: Ms. Asif was seen today in follow-up of COVID pneumonia. She says her only complaint is that she needs the high flow oxygen. She says her appetite is ok, she does not feel exceptionally fatigued. - Objective Vital Signs & Weight: Vital Signs (12 hours) Temp Pulse Resp BP Pulse Ox 08/04/20 11:34 97.7 F 57 L 20 111/65 97 08/04/20 08:00 97.8 F 62 20 125/70 94 L Weight Admit Weight 268 lb 15.424 oz Weight 268 lb 15.423 oz I&O: 08/03/20 08/04/20 08/05/20 06:59 06:59 06:59 Intake Total 1820 1100 Balance 1820 1100 Result Diagrams: 08/03/20 05:48 08/02/20 05:34 Hospitalist ROS - Medication Medications: Active Medications Generic Name Dose Route Start Last Admin Trade Name Freq PRN Reason Stop Dose Admin Acetaminophen 650 mg 07/20/20 10:03 07/24/20 22:27 Acetaminophen 325 Mg Tab PO 650 mg Q4H PRN Administration Headache/Fever/Mild Pain (1-3) Albuterol Sulfate 1 puff 07/23/20 10:27 07/23/20 12:24 Albuterol 200 Puff (6.7gm Inhaler) INH 1 puff [id number] PRN Administration Wheezing Ascorbic Acid 1,000 mg 07/20/20 09:00 08/04/20 07:37 Ascorbic Acid 500 Mg Chewable Tablet PO 1,000 mg DAILY TRISHA Administration Bisacodyl 10 mg 07/19/20 16:55 07/30/20 21:00 Bisacodyl 5 Mg Tab PO 10 mg DAILYPRN PRN Administration Constipation Calcium/Vitamin D 1 tab 07/20/20 21:00 08/04/20 07:37 Calcium Carbonate 600 Mg + Vit D Tab PO 1 tab BID TRISHA Administration Cholecalciferol 1,000 units 07/20/20 21:00 08/03/20 20:17 Cholecalciferol 1,000 Units (25 Mcg) Tab PO 1,000 units QPM TRISHA Administration Dexamethasone 6 mg 07/24/20 08:00 08/04/20 07:38 Dexamethasone 4 Mg Tab PO 6 mg QAM-WM TRISHA Administration Docusate Sodium 100 mg 07/21/20 09:00 08/04/20 07:38 Docusate 100 Mg Cap PO 100 mg DAILY TRISHA Administration Duloxetine HCl 60 mg 07/21/20 09:00 08/04/20 07:37 Duloxetine 60 Mg Cap PO 60 mg DAILY TRISHA Administration Fish Oil 1,000 mg 07/21/20 09:00 08/04/20 07:38 Fish Oil 1,000 Mg Cap PO 1,000 mg QAM TRISHA Administration Guaifenesin 200 mg 07/21/20 07:59 07/27/20 10:10 Diabetic Tussin 200 Mg/10 Ml Udcup PO 200 mg Q4H PRN Administration Cough Heparin Sodium (Porcine) 5,000 units 07/20/20 15:00 08/04/20 07:38 Heparin 5,000 Units/Ml Vial SC 5,000 units TID TRISHA Administration Iron/Minerals/Multivitamins 1 tab 07/20/20 21:00 08/03/20 20:17 Multivitamin W/ Minerals 1 Tab PO 1 tab HS TRISHA Administration Latanoprost 1 drop 07/20/20 21:00 08/03/20 20:17 Latanoprost 0.005% Ophth Soln 2.5 Ml Bottle EA EYE 1 drp HS TRISHA Administration Losartan Potassium 50 mg 07/21/20 09:00 08/04/20 07:38 Losartan 25 Mg Tab PO 50 mg DAILY TRISHA Administration Mirtazapine 15 mg 07/20/20 21:00 08/03/20 20:17 Mirtazapine 15 Mg Tab PO 15 mg HS TRISHA Administration Mometasone Furoate 200 mcg 07/30/20 06:30 08/04/20 07:39 Mometasone 100 Mcg/Puff (1 Inhaler) INH 1 inh BID-RT TRISHA Administration Ondansetron HCl 4 mg 07/20/20 10:03 07/20/20 21:42 Ondansetron Odt 4 Mg Tab PO 4 mg Q6H PRN Administration Nausea/Vomiting Pantoprazole Sodium 40 mg 07/21/20 09:00 08/04/20 07:37 Pantoprazole 40 Mg Tab PO 40 mg DAILY TRISHA Administration Pregabalin 50 mg 07/20/20 21:00 08/04/20 07:40 Pregabalin 50 Mg Cap PO 50 mg BID TRISHA Administration Simvastatin 10 mg 07/20/20 21:00 08/03/20 20:18 Simvastatin 10 Mg Tab PO 10 mg HS TRISHA Administration Timolol Maleate 1 drop 07/21/20 09:00 08/04/20 07:40 Timolol 0.5% Ophth Soln 5 Ml Bottle EA EYE 1 drp DAILY TRISHA Administration Torsemide 20 mg 07/20/20 21:00 08/04/20 07:37 Torsemide 20 Mg Tab PO 20 mg BID TRISHA Administration Zinc Sulfate 220 mg 07/20/20 09:00 08/04/20 07:43 Zinc Sulfate 220 Mg Cap PO 220 mg DAILY TRISHA Administration - Exam General Appearance: NAD, awake alert Eye: PERRL, anicteric sclera Heart: RRR, no murmur, no gallops, no rubs, normal peripheral pulses Respiratory: rales (+ rales at both bases, no wheezing or rhonchi) Gastrointestinal: soft, non-tender, non-distended, normal bowel sounds, no palpable masses, no hepatomegaly Extremities: no cyanosis, no edema (good distal pulses bilateral no lesions) Hosp A/P (1) Acute respiratory failure with hypoxia Code(s): J96.01 - ACUTE RESPIRATORY FAILURE WITH HYPOXIA Status: Acute (2) Pneumonia due to COVID-19 virus Code(s): U07.1 - COVID-19; J12.89 - OTHER VIRAL PNEUMONIA Status: Acute (3) CKD (chronic kidney disease), stage IV Code(s): N18.4 - CHRONIC KIDNEY DISEASE, STAGE 4 (SEVERE) Status: Chronic (4) GERD (gastroesophageal reflux disease) Code(s): K21.9 - GASTRO-ESOPHAGEAL REFLUX DISEASE WITHOUT ESOPHAGITIS Status: Chronic Qualifiers: Esophagitis presence: without esophagitis Qualified Code(s): K21.9 - Gastro-esophageal reflux disease without esophagitis - Plan * Acute respiratory failure due to COVID pneumonia- she continues to require high flow oxygen Her condition is stable otherwise * Continue IV decadron * Continue incentive spirometry, and ambulation in the room * Inflammatory markers are beginning to trend down * CKD- stage 4 stable * Will obtain labs when able and restart IV when able- her veins have been difficult to access.
[2020-08-04] MEDS: Cholecalciferol 1,000 UNITS (25 MCG) TAB PO SCH (20:09)
[2020-08-04] MEDS: Multivitamin W/ Minerals 1 TAB PO SCH (20:10)
[2020-08-04] MEDS: Latanoprost 0.005% Ophth Soln 2.5 ml Bottle EA EYE SCH (20:10)
[2020-08-04] MEDS: Simvastatin 10 MG TAB PO SCH (20:10)
[2020-08-04] MEDS: Mirtazapine 15 MG TAB PO SCH (20:10)
[2020-08-05] MEDS: Albuterol 200 PUFF (6.7GM INHALER) INH PRN (07:16)
[2020-08-05] MEDS: Mometasone 100 MCG/PUFF (1 INHALER) INH SCH ×2 (07:30→19:32)
[2020-08-05] MEDS: Calcium Carbonate 600 MG + Vit D TAB PO SCH ×2 (08:12→20:55)
[2020-08-05] MEDS: Dexamethasone 4 MG TAB PO SCH (08:12)
[2020-08-05] MEDS: Ascorbic Acid 500 mg Chewable Tablet PO SCH (08:12)
[2020-08-05] MEDS: Losartan 25 MG TAB PO SCH (08:12)
[2020-08-05] MEDS: Torsemide 20 MG TAB PO SCH ×2 (08:12→20:55)
[2020-08-05] MEDS: Fish Oil 1,000 MG CAP PO SCH (08:12)
[2020-08-05] MEDS: DULoxetine 60 MG CAP PO SCH (08:13)
[2020-08-05] MEDS: Docusate 100 MG CAP PO SCH (08:13)
[2020-08-05] MEDS: Zinc Sulfate 220 MG CAP PO SCH (08:13)
[2020-08-05] MEDS: Pregabalin 50 MG CAP PO SCH ×2 (08:14→20:55)
[2020-08-05] MEDS: Heparin 5,000 UNITS/ML VIAL SC SCH ×3 (08:15→20:54)
[2020-08-05] MEDS: Timolol 0.5% Ophth Soln 5 ml Bottle EA EYE SCH (08:44)
--- NOTE | 2020-08-05 14:45 | PDOC.HOSPP ---
- Subjective Encounter Date: 08/05/20 Encounter Time: 14:42 Subjective: Ms. Asif was seen today in follow-up of COVID pneumonia. She does not have any complaints. She is still requiring high flow oxygen. - Objective Vital Signs & Weight: Vital Signs (12 hours) Temp Pulse Resp BP BP Pulse Ox 08/05/20 12:00 97.4 F L 62 20 100/58 L 92 L 08/05/20 08:44 68 108/60 92 L 08/05/20 08:40 97.6 F 68 20 108/64 92 L Weight Admit Weight 268 lb 15.424 oz Weight 268 lb 15.423 oz I&O: 08/04/20 08/05/20 08/06/20 06:59 06:59 06:59 Intake Total 1100 1100 Balance 1100 1100 Result Diagrams: 08/03/20 05:48 08/02/20 05:34 Hospitalist ROS - Medication Medications: Active Medications Generic Name Dose Route Start Last Admin Trade Name Freq PRN Reason Stop Dose Admin Acetaminophen 650 mg 07/20/20 10:03 07/24/20 22:27 Acetaminophen 325 Mg Tab PO 650 mg Q4H PRN Administration Headache/Fever/Mild Pain (1-3) Albuterol Sulfate 1 puff 07/23/20 10:27 08/05/20 07:16 Albuterol 200 Puff (6.7gm Inhaler) INH 1 puff [id number] PRN Administration Wheezing Ascorbic Acid 1,000 mg 07/20/20 09:00 08/05/20 08:12 Ascorbic Acid 500 Mg Chewable Tablet PO 1,000 mg DAILY TRISHA Administration Bisacodyl 10 mg 07/19/20 16:55 07/30/20 21:00 Bisacodyl 5 Mg Tab PO 10 mg DAILYPRN PRN Administration Constipation Calcium/Vitamin D 1 tab 07/20/20 21:00 08/05/20 08:12 Calcium Carbonate 600 Mg + Vit D Tab PO 1 tab BID TRISHA Administration Cholecalciferol 1,000 units 07/20/20 21:00 08/04/20 20:09 Cholecalciferol 1,000 Units (25 Mcg) Tab PO 1,000 units QPM TRISHA Administration Dexamethasone 6 mg 07/24/20 08:00 08/05/20 08:12 Dexamethasone 4 Mg Tab PO 6 mg QAM-WM TRISHA Administration Docusate Sodium 100 mg 07/21/20 09:00 08/05/20 08:13 Docusate 100 Mg Cap PO 100 mg DAILY TRISHA Administration Duloxetine HCl 60 mg 07/21/20 09:00 08/05/20 08:13 Duloxetine 60 Mg Cap PO 60 mg DAILY TRISHA Administration Fish Oil 1,000 mg 07/21/20 09:00 08/05/20 08:12 Fish Oil 1,000 Mg Cap PO 1,000 mg QAM TRISHA Administration Guaifenesin 200 mg 07/21/20 07:59 07/27/20 10:10 Diabetic Tussin 200 Mg/10 Ml Udcup PO 200 mg Q4H PRN Administration Cough Heparin Sodium (Porcine) 5,000 units 07/20/20 15:00 08/05/20 08:15 Heparin 5,000 Units/Ml Vial SC 5,000 units TID TRISHA Administration Iron/Minerals/Multivitamins 1 tab 07/20/20 21:00 08/04/20 20:10 Multivitamin W/ Minerals 1 Tab PO 1 tab HS TRISHA Administration Latanoprost 1 drop 07/20/20 21:00 08/04/20 20:10 Latanoprost 0.005% Ophth Soln 2.5 Ml Bottle EA EYE 1 drp HS TRISHA Administration Losartan Potassium 50 mg 07/21/20 09:00 08/05/20 08:12 Losartan 25 Mg Tab PO 50 mg DAILY TRISHA Administration Mirtazapine 15 mg 07/20/20 21:00 08/04/20 20:10 Mirtazapine 15 Mg Tab PO 15 mg HS TRISHA Administration Mometasone Furoate 200 mcg 07/30/20 06:30 08/05/20 07:30 Mometasone 100 Mcg/Puff (1 Inhaler) INH 1 inh BID-RT TRISHA Administration Ondansetron HCl 4 mg 07/20/20 10:03 07/20/20 21:42 Ondansetron Odt 4 Mg Tab PO 4 mg Q6H PRN Administration Nausea/Vomiting Pantoprazole Sodium 40 mg 07/21/20 09:00 08/05/20 08:12 Pantoprazole 40 Mg Tab PO 40 mg DAILY TRISHA Administration Pregabalin 50 mg 07/20/20 21:00 08/05/20 08:14 Pregabalin 50 Mg Cap PO 50 mg BID TRISHA Administration Simvastatin 10 mg 07/20/20 21:00 08/04/20 20:10 Simvastatin 10 Mg Tab PO 10 mg HS TRISHA Administration Timolol Maleate 1 drop 07/21/20 09:00 08/05/20 08:44 Timolol 0.5% Ophth Soln 5 Ml Bottle EA EYE 1 drp DAILY TRISHA Administration Torsemide 20 mg 07/20/20 21:00 08/05/20 08:12 Torsemide 20 Mg Tab PO 20 mg BID TRISHA Administration Zinc Sulfate 220 mg 07/20/20 09:00 08/05/20 08:13 Zinc Sulfate 220 Mg Cap PO 220 mg DAILY TRISHA Administration - Exam Eye: PERRL, anicteric sclera Heart: RRR, no murmur, no gallops, no rubs, normal peripheral pulses Respiratory: no wheezes, no ronchi, rales (at both bases) Gastrointestinal: soft, non-tender, non-distended, normal bowel sounds, no palpable masses, no hepatomegaly Extremities: no cyanosis, 1+ LE edema (non-pitting edema in both lower extremities) Hosp A/P (1) Acute respiratory failure with hypoxia Code(s): J96.01 - ACUTE RESPIRATORY FAILURE WITH HYPOXIA Status: Acute (2) Pneumonia due to COVID-19 virus Code(s): U07.1 - COVID-19; J12.89 - OTHER VIRAL PNEUMONIA Status: Acute (3) CKD (chronic kidney disease), stage IV Code(s): N18.4 - CHRONIC KIDNEY DISEASE, STAGE 4 (SEVERE) Status: Chronic (4) GERD (gastroesophageal reflux disease) Code(s): K21.9 - GASTRO-ESOPHAGEAL REFLUX DISEASE WITHOUT ESOPHAGITIS Status: Chronic Qualifiers: Esophagitis presence: without esophagitis Qualified Code(s): K21.9 - Gastro-esophageal reflux disease without esophagitis - Plan * Acute respiratory failure due to COVID pneumonia- she continues to require high flow oxygen Her condition is stable otherwise * She is on IV Decadron- can consider tappering soon * Continue incentive spirometry, and ambulation in the room * CKD- stage 4 stable * Continue to encourage ambulation
[2020-08-05] MEDS: Mirtazapine 15 MG TAB PO SCH (20:55)
[2020-08-05] MEDS: Cholecalciferol 1,000 UNITS (25 MCG) TAB PO SCH (20:55)
[2020-08-05] MEDS: Latanoprost 0.005% Ophth Soln 2.5 ml Bottle EA EYE SCH (20:55)
[2020-08-05] MEDS: Multivitamin W/ Minerals 1 TAB PO SCH (20:55)
[2020-08-05] MEDS: Simvastatin 10 MG TAB PO SCH (20:55)
[2020-08-06] MEDS: Mometasone 100 MCG/PUFF (1 INHALER) INH SCH ×2 (06:18→18:24)
[2020-08-06] MEDS: DULoxetine 60 MG CAP PO SCH (08:23)
[2020-08-06] MEDS: Ascorbic Acid 500 mg Chewable Tablet PO SCH (08:23)
[2020-08-06] MEDS: Fish Oil 1,000 MG CAP PO SCH (08:23)
[2020-08-06] MEDS: Losartan 25 MG TAB PO SCH ×3 (08:23→10:34)
[2020-08-06] MEDS: Zinc Sulfate 220 MG CAP PO SCH (08:23)
[2020-08-06] MEDS: Torsemide 20 MG TAB PO SCH ×2 (08:23→20:50)
[2020-08-06] MEDS: Dexamethasone 4 MG TAB PO SCH (08:23)
[2020-08-06] MEDS: Calcium Carbonate 600 MG + Vit D TAB PO SCH ×2 (08:23→20:51)
[2020-08-06] MEDS: Docusate 100 MG CAP PO SCH (08:23)
[2020-08-06] MEDS: Pregabalin 50 MG CAP PO SCH ×2 (08:24→20:51)
[2020-08-06] MEDS: Heparin 5,000 UNITS/ML VIAL SC SCH ×3 (08:24→20:50)
[2020-08-06] MEDS: Timolol 0.5% Ophth Soln 5 ml Bottle EA EYE SCH (08:55)
--- NOTE | 2020-08-06 14:48 | PDOC.HOSPP ---
- Subjective Encounter Date: 08/06/20 Encounter Time: 14:47 Subjective: Ms. Asif was seen today in follow-up of COVID pneumonia. She is feeling ok. She notes stable work of breathing. - Objective Vital Signs & Weight: Vital Signs (12 hours) Temp Pulse Resp BP Pulse Ox 08/06/20 11:55 98.3 F 70 18 126/62 08/06/20 08:25 97.4 F L 63 20 105/61 93 L 08/06/20 08:09 98 Weight Admit Weight 268 lb 15.424 oz Weight 268 lb 15.423 oz I&O: 08/05/20 08/06/20 08/07/20 06:59 06:59 06:59 Intake Total 1100 1500 Output Total 1200 Balance 1100 300 Result Diagrams: 08/03/20 05:48 08/02/20 05:34 Hospitalist ROS - Medication Medications: Active Medications Generic Name Dose Route Start Last Admin Trade Name Freq PRN Reason Stop Dose Admin Acetaminophen 650 mg 07/20/20 10:03 07/24/20 22:27 Acetaminophen 325 Mg Tab PO 650 mg Q4H PRN Administration Headache/Fever/Mild Pain (1-3) Albuterol Sulfate 1 puff 07/23/20 10:27 08/05/20 07:16 Albuterol 200 Puff (6.7gm Inhaler) INH 1 puff [id number] PRN Administration Wheezing Ascorbic Acid 1,000 mg 07/20/20 09:00 08/06/20 08:23 Ascorbic Acid 500 Mg Chewable Tablet PO 1,000 mg DAILY TRISHA Administration Bisacodyl 10 mg 07/19/20 16:55 07/30/20 21:00 Bisacodyl 5 Mg Tab PO 10 mg DAILYPRN PRN Administration Constipation Calcium/Vitamin D 1 tab 07/20/20 21:00 08/06/20 08:23 Calcium Carbonate 600 Mg + Vit D Tab PO 1 tab BID TRISHA Administration Cholecalciferol 1,000 units 07/20/20 21:00 08/05/20 20:55 Cholecalciferol 1,000 Units (25 Mcg) Tab PO 1,000 units QPM TRISHA Administration Dexamethasone 6 mg 07/24/20 08:00 08/06/20 08:23 Dexamethasone 4 Mg Tab PO 6 mg QAM-WM TRISHA Administration Docusate Sodium 100 mg 07/21/20 09:00 08/06/20 08:23 Docusate 100 Mg Cap PO 100 mg DAILY TRISHA Administration Duloxetine HCl 60 mg 07/21/20 09:00 08/06/20 08:23 Duloxetine 60 Mg Cap PO 60 mg DAILY TRISHA Administration Fish Oil 1,000 mg 07/21/20 09:00 08/06/20 08:23 Fish Oil 1,000 Mg Cap PO 1,000 mg QAM TRISHA Administration Guaifenesin 200 mg 07/21/20 07:59 07/27/20 10:10 Diabetic Tussin 200 Mg/10 Ml Udcup PO 200 mg Q4H PRN Administration Cough Heparin Sodium (Porcine) 5,000 units 07/20/20 15:00 08/06/20 08:24 Heparin 5,000 Units/Ml Vial SC 5,000 units TID TRISHA Administration Iron/Minerals/Multivitamins 1 tab 07/20/20 21:00 08/05/20 20:55 Multivitamin W/ Minerals 1 Tab PO 1 tab HS TRISHA Administration Latanoprost 1 drop 07/20/20 21:00 08/05/20 20:55 Latanoprost 0.005% Ophth Soln 2.5 Ml Bottle EA EYE 1 drp HS TRISHA Administration Losartan Potassium 50 mg 07/21/20 09:00 08/06/20 08:45 Losartan 25 Mg Tab PO 50 mg DAILY TRISHA Administration Mirtazapine 15 mg 07/20/20 21:00 08/05/20 20:55 Mirtazapine 15 Mg Tab PO 15 mg HS TRISHA Administration Mometasone Furoate 200 mcg 07/30/20 06:30 08/06/20 06:18 Mometasone 100 Mcg/Puff (1 Inhaler) INH 1 inh BID-RT TRISHA Administration Ondansetron HCl 4 mg 07/20/20 10:03 07/20/20 21:42 Ondansetron Odt 4 Mg Tab PO 4 mg Q6H PRN Administration Nausea/Vomiting Pantoprazole Sodium 40 mg 07/21/20 09:00 08/06/20 08:23 Pantoprazole 40 Mg Tab PO 40 mg DAILY TRISHA Administration Pregabalin 50 mg 07/20/20 21:00 08/06/20 08:24 Pregabalin 50 Mg Cap PO 50 mg BID TRISHA Administration Simvastatin 10 mg 07/20/20 21:00 08/05/20 20:55 Simvastatin 10 Mg Tab PO 10 mg HS TRISHA Administration Sodium Chloride 10 ml 07/20/20 10:03 08/06/20 08:24 Flush - Normal Saline 10 Ml Syringe IVF 10 ml PRN PRN Administration Saline Flush Timolol Maleate 1 drop 07/21/20 09:00 08/06/20 08:55 Timolol 0.5% Ophth Soln 5 Ml Bottle EA EYE 1 drp DAILY TRISHA Administration Torsemide 20 mg 07/20/20 21:00 08/06/20 08:23 Torsemide 20 Mg Tab PO 20 mg BID TRISHA Administration Zinc Sulfate 220 mg 07/20/20 09:00 08/06/20 08:23 Zinc Sulfate 220 Mg Cap PO 220 mg DAILY TRISHA Administration - Exam Eye: PERRL, anicteric sclera Heart: RRR, no murmur, no gallops, no rubs, normal peripheral pulses Respiratory: no wheezes, no ronchi, rales (+ rales at both bases) Gastrointestinal: soft, non-tender, non-distended, normal bowel sounds, no palpable masses, no hepatomegaly Extremities: no cyanosis, no edema (good distal pulses bilateral) Hosp A/P (1) Acute respiratory failure with hypoxia Code(s): J96.01 - ACUTE RESPIRATORY FAILURE WITH HYPOXIA Status: Acute (2) Pneumonia due to COVID-19 virus Code(s): U07.1 - COVID-19; J12.89 - OTHER VIRAL PNEUMONIA Status: Acute (3) CKD (chronic kidney disease), stage IV Code(s): N18.4 - CHRONIC KIDNEY DISEASE, STAGE 4 (SEVERE) Status: Chronic (4) GERD (gastroesophageal reflux disease) Code(s): K21.9 - GASTRO-ESOPHAGEAL REFLUX DISEASE WITHOUT ESOPHAGITIS Status: Chronic Qualifiers: Esophagitis presence: without esophagitis Qualified Code(s): K21.9 - Gastro-esophageal reflux disease without esophagitis - Plan * Acute respiratory failure due to COVID pneumonia- she continues to require high flow oxygen. The percentage has been reduced. * Continue IV Decadron * Continue incentive spirometry, and ambulation in the room * CKD- stage 4 stable * Continue ambulation and mobilization
[2020-08-06] MEDS: Mirtazapine 15 MG TAB PO SCH (20:51)
[2020-08-06] MEDS: Simvastatin 10 MG TAB PO SCH (20:51)
[2020-08-06] MEDS: Multivitamin W/ Minerals 1 TAB PO SCH (20:51)
[2020-08-06] MEDS: Latanoprost 0.005% Ophth Soln 2.5 ml Bottle EA EYE SCH (20:52)
[2020-08-06] MEDS: Cholecalciferol 1,000 UNITS (25 MCG) TAB PO SCH (20:52)
[2020-08-07] MEDS: Mometasone 100 MCG/PUFF (1 INHALER) INH SCH ×2 (06:17→18:03)
[2020-08-07] MEDS: Calcium Carbonate 600 MG + Vit D TAB PO SCH ×2 (09:01→20:46)
[2020-08-07] MEDS: Dexamethasone 4 MG TAB PO SCH (09:01)
[2020-08-07] MEDS: DULoxetine 60 MG CAP PO SCH (09:01)
[2020-08-07] MEDS: Ascorbic Acid 500 mg Chewable Tablet PO SCH (09:02)
[2020-08-07] MEDS: Heparin 5,000 UNITS/ML VIAL SC SCH ×3 (09:02→20:45)
[2020-08-07] MEDS: Fish Oil 1,000 MG CAP PO SCH (09:02)
[2020-08-07] MEDS: Losartan 25 MG TAB PO SCH (09:02)
[2020-08-07] MEDS: Docusate 100 MG CAP PO SCH (09:02)
[2020-08-07] MEDS: Pregabalin 50 MG CAP PO SCH ×2 (09:03→20:45)
[2020-08-07] MEDS: Timolol 0.5% Ophth Soln 5 ml Bottle EA EYE SCH (09:03)
[2020-08-07] MEDS: Zinc Sulfate 220 MG CAP PO SCH (09:06)
[2020-08-07] MEDS: Torsemide 20 MG TAB PO SCH ×2 (09:06→20:46)
--- NOTE | 2020-08-07 15:41 | PDOC.HOSPP ---
- Subjective Encounter Date: 08/07/20 Encounter Time: 15:39 Subjective: Ms. Asif was seen today in follow-up of COVID pneumonia. She is feeling ok. She does not have any new complaints. - Objective Vital Signs & Weight: Vital Signs (12 hours) Temp Pulse Resp BP BP Pulse Ox 08/07/20 11:45 97.7 F 61 18 98/61 93 L 08/07/20 09:15 97.6 F 68 18 110/56 L 92 L 08/07/20 04:00 97.7 F 61 16 115/63 93 L Weight Admit Weight 268 lb 15.424 oz Weight 268 lb 15.423 oz I&O: 08/06/20 08/07/20 08/08/20 06:59 06:59 06:59 Intake Total 1500 1210 Output Total 1200 Balance 300 1210 Result Diagrams: 08/03/20 05:48 08/02/20 05:34 Hospitalist ROS - Medication Medications: Active Medications Generic Name Dose Route Start Last Admin Trade Name Freq PRN Reason Stop Dose Admin Acetaminophen 650 mg 07/20/20 10:03 07/24/20 22:27 Acetaminophen 325 Mg Tab PO 650 mg Q4H PRN Administration Headache/Fever/Mild Pain (1-3) Albuterol Sulfate 1 puff 07/23/20 10:27 08/05/20 07:16 Albuterol 200 Puff (6.7gm Inhaler) INH 1 puff [id number] PRN Administration Wheezing Ascorbic Acid 1,000 mg 07/20/20 09:00 08/07/20 09:02 Ascorbic Acid 500 Mg Chewable Tablet PO 1,000 mg DAILY TRISHA Administration Bisacodyl 10 mg 07/19/20 16:55 07/30/20 21:00 Bisacodyl 5 Mg Tab PO 10 mg DAILYPRN PRN Administration Constipation Calcium/Vitamin D 1 tab 07/20/20 21:00 08/07/20 09:01 Calcium Carbonate 600 Mg + Vit D Tab PO 1 tab BID TRISHA Administration Cholecalciferol 1,000 units 07/20/20 21:00 08/06/20 20:52 Cholecalciferol 1,000 Units (25 Mcg) Tab PO 1,000 units QPM TRISHA Administration Dexamethasone 6 mg 07/24/20 08:00 08/07/20 09:01 Dexamethasone 4 Mg Tab PO 6 mg QAM-WM TRISHA Administration Docusate Sodium 100 mg 07/21/20 09:00 08/07/20 09:02 Docusate 100 Mg Cap PO 100 mg DAILY TRISHA Administration Duloxetine HCl 60 mg 07/21/20 09:00 08/07/20 09:01 Duloxetine 60 Mg Cap PO 60 mg DAILY TRISHA Administration Fish Oil 1,000 mg 07/21/20 09:00 08/07/20 09:02 Fish Oil 1,000 Mg Cap PO 1,000 mg QAM TRISHA Administration Guaifenesin 200 mg 07/21/20 07:59 07/27/20 10:10 Diabetic Tussin 200 Mg/10 Ml Udcup PO 200 mg Q4H PRN Administration Cough Heparin Sodium (Porcine) 5,000 units 07/20/20 15:00 08/07/20 15:04 Heparin 5,000 Units/Ml Vial SC 5,000 units TID TRISHA Administration Iron/Minerals/Multivitamins 1 tab 07/20/20 21:00 08/06/20 20:51 Multivitamin W/ Minerals 1 Tab PO 1 tab HS TRISHA Administration Latanoprost 1 drop 07/20/20 21:00 08/06/20 20:52 Latanoprost 0.005% Ophth Soln 2.5 Ml Bottle EA EYE 1 drp HS TRISHA Administration Losartan Potassium 50 mg 07/21/20 09:00 08/07/20 09:02 Losartan 25 Mg Tab PO Not Given DAILY TRISHA Mirtazapine 15 mg 07/20/20 21:00 08/06/20 20:51 Mirtazapine 15 Mg Tab PO 15 mg HS TRISHA Administration Mometasone Furoate 200 mcg 07/30/20 06:30 08/07/20 06:17 Mometasone 100 Mcg/Puff (1 Inhaler) INH 1 inh BID-RT TRISHA Administration Ondansetron HCl 4 mg 07/20/20 10:03 07/20/20 21:42 Ondansetron Odt 4 Mg Tab PO 4 mg Q6H PRN Administration Nausea/Vomiting Pantoprazole Sodium 40 mg 07/21/20 09:00 08/07/20 09:02 Pantoprazole 40 Mg Tab PO 40 mg DAILY TRISHA Administration Pregabalin 50 mg 07/20/20 21:00 08/07/20 09:03 Pregabalin 50 Mg Cap PO 50 mg BID TRISHA Administration Simvastatin 10 mg 07/20/20 21:00 08/06/20 20:51 Simvastatin 10 Mg Tab PO 10 mg HS TRISHA Administration Sodium Chloride 10 ml 07/20/20 10:03 08/07/20 09:02 Flush - Normal Saline 10 Ml Syringe IVF 10 ml PRN PRN Administration Saline Flush Timolol Maleate 1 drop 07/21/20 09:00 08/07/20 09:03 Timolol 0.5% Ophth Soln 5 Ml Bottle EA EYE 1 drp DAILY TRISHA Administration Torsemide 20 mg 07/20/20 21:00 08/07/20 09:06 Torsemide 20 Mg Tab PO 20 mg BID TRISHA Administration Zinc Sulfate 220 mg 07/20/20 09:00 08/07/20 09:06 Zinc Sulfate 220 Mg Cap PO 220 mg DAILY TRISHA Administration - Exam Eye: PERRL, anicteric sclera Heart: RRR, no murmur, no gallops, no rubs, normal peripheral pulses Respiratory: rales (+ rales at both bases) Gastrointestinal: soft, non-tender, non-distended, normal bowel sounds, no hepatomegaly, no splenomegaly Extremities: no cyanosis, no edema Hosp A/P (1) Acute respiratory failure with hypoxia Code(s): J96.01 - ACUTE RESPIRATORY FAILURE WITH HYPOXIA Status: Acute (2) Pneumonia due to COVID-19 virus Code(s): U07.1 - COVID-19; J12.89 - OTHER VIRAL PNEUMONIA Status: Acute (3) CKD (chronic kidney disease), stage IV Code(s): N18.4 - CHRONIC KIDNEY DISEASE, STAGE 4 (SEVERE) Status: Chronic (4) GERD (gastroesophageal reflux disease) Code(s): K21.9 - GASTRO-ESOPHAGEAL REFLUX DISEASE WITHOUT ESOPHAGITIS Status: Chronic Qualifiers: Esophagitis presence: without esophagitis Qualified Code(s): K21.9 - Gastro-esophageal reflux disease without esophagitis - Plan * Acute respiratory failure due to COVID pneumonia- she continues to require high flow oxygen. She is on 35L and is stable * Continue IV Decadron * Continue incentive spirometry, and ambulation in the room * CKD- stage 4 stable * Continue ambulation and mobilization * Hopefully she can be transitioned to oxygen via nasal cannula soon
[2020-08-07] MEDS: Multivitamin W/ Minerals 1 TAB PO SCH (20:46)
[2020-08-07] MEDS: Cholecalciferol 1,000 UNITS (25 MCG) TAB PO SCH (20:46)
[2020-08-07] MEDS: Mirtazapine 15 MG TAB PO SCH (20:46)
[2020-08-07] MEDS: Simvastatin 10 MG TAB PO SCH (20:46)
[2020-08-07] MEDS: Latanoprost 0.005% Ophth Soln 2.5 ml Bottle EA EYE SCH (20:47)
[2020-08-08] MEDS: Mometasone 100 MCG/PUFF (1 INHALER) INH SCH ×2 (06:30→18:50)
[2020-08-08] MEDS: Zinc Sulfate 220 MG CAP PO SCH (09:33)
[2020-08-08] MEDS: Timolol 0.5% Ophth Soln 5 ml Bottle EA EYE SCH (09:34)
[2020-08-08] MEDS: Heparin 5,000 UNITS/ML VIAL SC SCH ×3 (09:34→20:04)
[2020-08-08] MEDS: Pregabalin 50 MG CAP PO SCH ×2 (09:35→20:03)
[2020-08-08] MEDS: Fish Oil 1,000 MG CAP PO SCH (09:35)
[2020-08-08] MEDS: Dexamethasone 4 MG TAB PO SCH (09:35)
[2020-08-08] MEDS: DULoxetine 60 MG CAP PO SCH (09:35)
[2020-08-08] MEDS: Docusate 100 MG CAP PO SCH (09:36)
[2020-08-08] MEDS: Ascorbic Acid 500 mg Chewable Tablet PO SCH (09:36)
[2020-08-08] MEDS: Losartan 25 MG TAB PO SCH (09:37)
[2020-08-08] MEDS: Calcium Carbonate 600 MG + Vit D TAB PO SCH ×2 (09:37→20:04)
[2020-08-08] MEDS: Torsemide 20 MG TAB PO SCH ×2 (09:38→20:04)
--- NOTE | 2020-08-08 17:38 | PDOC.HOSPP ---
- Subjective Encounter Date: 08/08/20 Encounter Time: 17:36 Subjective: Ms. Asif was seen today in follow-up of COVID pneumonia, and respiratory failure. She feels about the same. She continues to reuire high flow oxygen. - Objective Vital Signs & Weight: Vital Signs (12 hours) Temp Pulse Resp BP BP BP Pulse Ox 08/08/20 16:53 97.4 F L 68 20 109/64 93 L 08/08/20 12:00 63 20 96/59 L 93 L 08/08/20 09:34 63 99/56 L 08/08/20 09:29 97.6 F 63 20 99/55 L 92 L 08/08/20 07:14 92 L Weight Admit Weight 268 lb 15.424 oz Weight 268 lb 15.423 oz I&O: 08/07/20 08/08/20 08/09/20 06:59 06:59 06:59 Intake Total 1210 1200 Balance 1210 1200 Result Diagrams: 08/03/20 05:48 08/02/20 05:34 Hospitalist ROS - Medication Medications: Active Medications Generic Name Dose Route Start Last Admin Trade Name Freq PRN Reason Stop Dose Admin Acetaminophen 650 mg 07/20/20 10:03 07/24/20 22:27 Acetaminophen 325 Mg Tab PO 650 mg Q4H PRN Administration Headache/Fever/Mild Pain (1-3) Albuterol Sulfate 1 puff 07/23/20 10:27 08/05/20 07:16 Albuterol 200 Puff (6.7gm Inhaler) INH 1 puff [id number] PRN Administration Wheezing Ascorbic Acid 1,000 mg 07/20/20 09:00 08/08/20 09:36 Ascorbic Acid 500 Mg Chewable Tablet PO 1,000 mg DAILY TRISHA Administration Bisacodyl 10 mg 07/19/20 16:55 07/30/20 21:00 Bisacodyl 5 Mg Tab PO 10 mg DAILYPRN PRN Administration Constipation Calcium/Vitamin D 1 tab 07/20/20 21:00 08/08/20 09:37 Calcium Carbonate 600 Mg + Vit D Tab PO 1 tab BID TRISHA Administration Cholecalciferol 1,000 units 07/20/20 21:00 08/07/20 20:46 Cholecalciferol 1,000 Units (25 Mcg) Tab PO 1,000 units QPM TRISHA Administration Dexamethasone 6 mg 07/24/20 08:00 08/08/20 09:35 Dexamethasone 4 Mg Tab PO 6 mg QAM-WM TRISHA Administration Docusate Sodium 100 mg 07/21/20 09:00 08/08/20 09:36 Docusate 100 Mg Cap PO 100 mg DAILY TRISHA Administration Duloxetine HCl 60 mg 07/21/20 09:00 08/08/20 09:35 Duloxetine 60 Mg Cap PO 60 mg DAILY TRISHA Administration Fish Oil 1,000 mg 07/21/20 09:00 08/08/20 09:35 Fish Oil 1,000 Mg Cap PO 1,000 mg QAM TRISHA Administration Guaifenesin 200 mg 07/21/20 07:59 07/27/20 10:10 Diabetic Tussin 200 Mg/10 Ml Udcup PO 200 mg Q4H PRN Administration Cough Heparin Sodium (Porcine) 5,000 units 07/20/20 15:00 08/08/20 16:00 Heparin 5,000 Units/Ml Vial SC 5,000 units TID TRISHA Administration Iron/Minerals/Multivitamins 1 tab 07/20/20 21:00 08/07/20 20:46 Multivitamin W/ Minerals 1 Tab PO 1 tab HS TRISHA Administration Latanoprost 1 drop 07/20/20 21:00 08/07/20 20:47 Latanoprost 0.005% Ophth Soln 2.5 Ml Bottle EA EYE 1 drp HS TRISHA Administration Losartan Potassium 50 mg 07/21/20 09:00 08/08/20 09:37 Losartan 25 Mg Tab PO Not Given DAILY TRISHA Mirtazapine 15 mg 07/20/20 21:00 08/07/20 20:46 Mirtazapine 15 Mg Tab PO 15 mg HS TRISHA Administration Mometasone Furoate 200 mcg 07/30/20 06:30 08/08/20 06:30 Mometasone 100 Mcg/Puff (1 Inhaler) INH 1 inh BID-RT TRISHA Administration Ondansetron HCl 4 mg 07/20/20 10:03 07/20/20 21:42 Ondansetron Odt 4 Mg Tab PO 4 mg Q6H PRN Administration Nausea/Vomiting Pantoprazole Sodium 40 mg 07/21/20 09:00 08/08/20 09:35 Pantoprazole 40 Mg Tab PO 40 mg DAILY TRISHA Administration Pregabalin 50 mg 07/20/20 21:00 08/08/20 09:35 Pregabalin 50 Mg Cap PO 50 mg BID TRISHA Administration Simvastatin 10 mg 07/20/20 21:00 08/07/20 20:46 Simvastatin 10 Mg Tab PO 10 mg HS TRISHA Administration Sodium Chloride 10 ml 07/20/20 10:03 08/07/20 09:02 Flush - Normal Saline 10 Ml Syringe IVF 10 ml PRN PRN Administration Saline Flush Timolol Maleate 1 drop 07/21/20 09:00 08/08/20 09:34 Timolol 0.5% Ophth Soln 5 Ml Bottle EA EYE 1 drp DAILY TRISHA Administration Torsemide 20 mg 07/20/20 21:00 08/08/20 09:38 Torsemide 20 Mg Tab PO 20 mg BID TRISHA Administration Zinc Sulfate 220 mg 07/20/20 09:00 08/08/20 09:33 Zinc Sulfate 220 Mg Cap PO 220 mg DAILY TRISHA Administration - Exam Eye: PERRL, anicteric sclera Heart: RRR, no murmur, no gallops, no rubs, normal peripheral pulses Respiratory: no wheezes, no ronchi, normal chest expansion, rales (rales at both bases) Gastrointestinal: soft, non-tender, non-distended, normal bowel sounds, no palpable masses, no hepatomegaly Extremities: no cyanosis, no edema Hosp A/P (1) Acute respiratory failure with hypoxia Code(s): J96.01 - ACUTE RESPIRATORY FAILURE WITH HYPOXIA Status: Acute (2) Pneumonia due to COVID-19 virus Code(s): U07.1 - COVID-19; J12.89 - OTHER VIRAL PNEUMONIA Status: Acute (3) CKD (chronic kidney disease), stage IV Code(s): N18.4 - CHRONIC KIDNEY DISEASE, STAGE 4 (SEVERE) Status: Chronic (4) GERD (gastroesophageal reflux disease) Code(s): K21.9 - GASTRO-ESOPHAGEAL REFLUX DISEASE WITHOUT ESOPHAGITIS Status: Chronic Qualifiers: Esophagitis presence: without esophagitis Qualified Code(s): K21.9 - Gastro-esophageal reflux disease without esophagitis - Plan * Acute respiratory failure due to COVID pneumonia- she continues to require high flow oxygen. * Continue IV Decadron * Continue incentive spirometry, and ambulation in the room * CKD- stage 4 stable * Continue ambulation and mobilization
[2020-08-08] MEDS: Cholecalciferol 1,000 UNITS (25 MCG) TAB PO SCH (20:03)
[2020-08-08] MEDS: Multivitamin W/ Minerals 1 TAB PO SCH (20:04)
[2020-08-08] MEDS: Latanoprost 0.005% Ophth Soln 2.5 ml Bottle EA EYE SCH (20:04)
[2020-08-08] MEDS: Mirtazapine 15 MG TAB PO SCH (20:04)
[2020-08-08] MEDS: Simvastatin 10 MG TAB PO SCH (20:04)
[2020-08-09] MEDS: DULoxetine 60 MG CAP PO SCH (08:16)
[2020-08-09] MEDS: Fish Oil 1,000 MG CAP PO SCH (08:16)
[2020-08-09] MEDS: Zinc Sulfate 220 MG CAP PO SCH (08:16)
[2020-08-09] MEDS: Calcium Carbonate 600 MG + Vit D TAB PO SCH ×2 (08:16→20:39)
[2020-08-09] MEDS: Ascorbic Acid 500 mg Chewable Tablet PO SCH (08:16)
[2020-08-09] MEDS: Docusate 100 MG CAP PO SCH (08:17)
[2020-08-09] MEDS: Pregabalin 50 MG CAP PO SCH ×2 (08:17→20:39)
[2020-08-09] MEDS: Losartan 25 MG TAB PO SCH (08:17)
[2020-08-09] MEDS: Dexamethasone 4 MG TAB PO SCH (08:18)
[2020-08-09] MEDS: Torsemide 20 MG TAB PO SCH ×2 (08:18→20:39)
[2020-08-09] MEDS: Mometasone 100 MCG/PUFF (1 INHALER) INH SCH ×2 (08:19→18:27)
[2020-08-09] MEDS: Heparin 5,000 UNITS/ML VIAL SC SCH ×3 (08:19→20:41)
[2020-08-09] MEDS: Timolol 0.5% Ophth Soln 5 ml Bottle EA EYE SCH (08:20)
--- NOTE | 2020-08-09 15:25 | PDOC.HOSPP ---
- Subjective Encounter Date: 08/09/20 Encounter Time: 15:23 Subjective: Ms. Asif was seen today in follow-up of COVID pneumonia. She says she feels fine. She says she is breathing ok. She has been ambulating in the room without difficulty. When I came to see her the respiratory therapist was there, and she was placed on a nasal cannula, at 4l, and she was stable. - Objective Vital Signs & Weight: Vital Signs (12 hours) Temp Pulse Resp BP Pulse Ox 08/09/20 12:00 98.6 F 64 20 104/69 92 L 08/09/20 08:44 97.9 F 68 20 104/65 97 08/09/20 08:00 97 08/09/20 04:00 54 L 18 96 Weight Admit Weight 268 lb 15.424 oz Weight 268 lb 15.423 oz I&O: 08/08/20 08/09/20 08/10/20 06:59 06:59 06:59 Intake Total 1200 800 Output Total 1500 Balance 1200 -700 Result Diagrams: 08/03/20 05:48 08/02/20 05:34 Hospitalist ROS - Medication Medications: Active Medications Generic Name Dose Route Start Last Admin Trade Name Freq PRN Reason Stop Dose Admin Acetaminophen 650 mg 07/20/20 10:03 07/24/20 22:27 Acetaminophen 325 Mg Tab PO 650 mg Q4H PRN Administration Headache/Fever/Mild Pain (1-3) Albuterol Sulfate 1 puff 07/23/20 10:27 08/05/20 07:16 Albuterol 200 Puff (6.7gm Inhaler) INH 1 puff [id number] PRN Administration Wheezing Ascorbic Acid 1,000 mg 07/20/20 09:00 08/09/20 08:16 Ascorbic Acid 500 Mg Chewable Tablet PO 1,000 mg DAILY TRISHA Administration Bisacodyl 10 mg 07/19/20 16:55 07/30/20 21:00 Bisacodyl 5 Mg Tab PO 10 mg DAILYPRN PRN Administration Constipation Calcium/Vitamin D 1 tab 07/20/20 21:00 08/09/20 08:16 Calcium Carbonate 600 Mg + Vit D Tab PO 1 tab BID TRISHA Administration Cholecalciferol 1,000 units 07/20/20 21:00 08/08/20 20:03 Cholecalciferol 1,000 Units (25 Mcg) Tab PO 1,000 units QPM TRISHA Administration Dexamethasone 6 mg 07/24/20 08:00 08/09/20 08:18 Dexamethasone 4 Mg Tab PO 6 mg QAM-WM TRISHA Administration Docusate Sodium 100 mg 07/21/20 09:00 08/09/20 08:17 Docusate 100 Mg Cap PO 100 mg DAILY TRISHA Administration Duloxetine HCl 60 mg 07/21/20 09:00 08/09/20 08:16 Duloxetine 60 Mg Cap PO 60 mg DAILY TRISHA Administration Fish Oil 1,000 mg 07/21/20 09:00 08/09/20 08:16 Fish Oil 1,000 Mg Cap PO 1,000 mg QAM TRISHA Administration Guaifenesin 200 mg 07/21/20 07:59 07/27/20 10:10 Diabetic Tussin 200 Mg/10 Ml Udcup PO 200 mg Q4H PRN Administration Cough Heparin Sodium (Porcine) 5,000 units 07/20/20 15:00 08/09/20 14:15 Heparin 5,000 Units/Ml Vial SC 5,000 units TID TRISHA Administration Iron/Minerals/Multivitamins 1 tab 07/20/20 21:00 08/08/20 20:04 Multivitamin W/ Minerals 1 Tab PO 1 tab HS TRISHA Administration Latanoprost 1 drop 07/20/20 21:00 08/08/20 20:04 Latanoprost 0.005% Ophth Soln 2.5 Ml Bottle EA EYE 1 drp HS TRISHA Administration Losartan Potassium 50 mg 07/21/20 09:00 08/09/20 08:17 Losartan 25 Mg Tab PO 50 mg DAILY TRISHA Administration Mirtazapine 15 mg 07/20/20 21:00 08/08/20 20:04 Mirtazapine 15 Mg Tab PO 15 mg HS TRISHA Administration Mometasone Furoate 200 mcg 07/30/20 06:30 08/09/20 08:19 Mometasone 100 Mcg/Puff (1 Inhaler) INH 1 inh BID-RT TRISHA Administration Ondansetron HCl 4 mg 07/20/20 10:03 07/20/20 21:42 Ondansetron Odt 4 Mg Tab PO 4 mg Q6H PRN Administration Nausea/Vomiting Pantoprazole Sodium 40 mg 07/21/20 09:00 08/09/20 08:16 Pantoprazole 40 Mg Tab PO 40 mg DAILY TRISHA Administration Pregabalin 50 mg 07/20/20 21:00 08/09/20 08:17 Pregabalin 50 Mg Cap PO 50 mg BID TRISHA Administration Simvastatin 10 mg 07/20/20 21:00 08/08/20 20:04 Simvastatin 10 Mg Tab PO 10 mg HS TRISHA Administration Sodium Chloride 10 ml 07/20/20 10:03 08/07/20 09:02 Flush - Normal Saline 10 Ml Syringe IVF 10 ml PRN PRN Administration Saline Flush Timolol Maleate 1 drop 07/21/20 09:00 08/09/20 08:20 Timolol 0.5% Ophth Soln 5 Ml Bottle EA EYE 1 drp DAILY TRISHA Administration Torsemide 20 mg 07/20/20 21:00 08/09/20 08:18 Torsemide 20 Mg Tab PO 20 mg BID TRISHA Administration Zinc Sulfate 220 mg 07/20/20 09:00 08/09/20 08:16 Zinc Sulfate 220 Mg Cap PO 220 mg DAILY TRISHA Administration - Exam Eye: PERRL, anicteric sclera Heart: RRR, no murmur, no gallops, no rubs, normal peripheral pulses Respiratory: rales (+ rales at both bases) Gastrointestinal: soft, non-tender, non-distended, normal bowel sounds, no palpable masses, no hepatomegaly Extremities: no cyanosis, no edema Hosp A/P (1) Acute respiratory failure with hypoxia Code(s): J96.01 - ACUTE RESPIRATORY FAILURE WITH HYPOXIA Status: Acute (2) Pneumonia due to COVID-19 virus Code(s): U07.1 - COVID-19; J12.89 - OTHER VIRAL PNEUMONIA Status: Acute (3) CKD (chronic kidney disease), stage IV Code(s): N18.4 - CHRONIC KIDNEY DISEASE, STAGE 4 (SEVERE) Status: Chronic (4) GERD (gastroesophageal reflux disease) Code(s): K21.9 - GASTRO-ESOPHAGEAL REFLUX DISEASE WITHOUT ESOPHAGITIS Status: Chronic Qualifiers: Esophagitis presence: without esophagitis Qualified Code(s): K21.9 - Gastro-esophageal reflux disease without esophagitis - Plan * Acute respiratory failure due to COVID pneumonia- she has been weaned off high flow oxygen * Continue IV Decadron until it is established she is stable on oxygen via NC * Continue incentive spirometry, and ambulation in the room * CKD- stage 4 stable * Continue ambulation and mobilization * Once she remains stable on NC likely weaned down to 2L- then can consider discharge home with home oxygen
[2020-08-09] MEDS: Mirtazapine 15 MG TAB PO SCH (20:39)
[2020-08-09] MEDS: Multivitamin W/ Minerals 1 TAB PO SCH (20:39)
[2020-08-09] MEDS: Cholecalciferol 1,000 UNITS (25 MCG) TAB PO SCH (20:40)
[2020-08-09] MEDS: Simvastatin 10 MG TAB PO SCH (20:40)
[2020-08-09] MEDS: Latanoprost 0.005% Ophth Soln 2.5 ml Bottle EA EYE SCH (20:41)
[2020-08-10] MEDS: Mometasone 100 MCG/PUFF (1 INHALER) INH SCH ×2 (06:27→20:18)
--- NOTE | 2020-08-10 08:56 | PDOC.HOSPP ---
- Subjective Encounter Date: 08/10/20 Encounter Time: 12:00 Subjective: Patient feeling a bit better each day. No complaints. - Objective Vital Signs & Weight: Vital Signs (12 hours) Temp Pulse Resp BP Pulse Ox 08/10/20 04:00 94 L 08/10/20 00:00 97.8 F 65 20 114/67 94 L Weight Admit Weight 268 lb 15.424 oz Weight 268 lb 15.423 oz I&O: 08/09/20 08/10/20 08/11/20 06:59 06:59 05:59 Intake Total 800 1760 Output Total 1500 1400 Balance -700 360 Result Diagrams: 08/03/20 05:48 08/02/20 05:34 Hospitalist ROS - Review of Systems Constitutional: denies: fever, chills Respiratory: reports: SOB with excertion. denies: cough, shortness of breath Cardiovascular: denies: chest pain, palpitations Gastrointestinal: denies: nausea, vomiting, abdominal pain - Medication Medications: Active Medications Generic Name Dose Route Start Last Admin Trade Name Freq PRN Reason Stop Dose Admin Acetaminophen 650 mg 07/20/20 10:03 07/24/20 22:27 Acetaminophen 325 Mg Tab PO 650 mg Q4H PRN Administration Headache/Fever/Mild Pain (1-3) Albuterol Sulfate 1 puff 07/23/20 10:27 08/05/20 07:16 Albuterol 200 Puff (6.7gm Inhaler) INH 1 puff [id number] PRN Administration Wheezing Ascorbic Acid 1,000 mg 07/20/20 09:00 08/09/20 08:16 Ascorbic Acid 500 Mg Chewable Tablet PO 1,000 mg DAILY TRISHA Administration Bisacodyl 10 mg 07/19/20 16:55 07/30/20 21:00 Bisacodyl 5 Mg Tab PO 10 mg DAILYPRN PRN Administration Constipation Calcium/Vitamin D 1 tab 07/20/20 21:00 08/09/20 20:39 Calcium Carbonate 600 Mg + Vit D Tab PO 1 tab BID TRISHA Administration Cholecalciferol 1,000 units 07/20/20 21:00 08/09/20 20:40 Cholecalciferol 1,000 Units (25 Mcg) Tab PO 1,000 units QPM TRISHA Administration Dexamethasone 6 mg 07/24/20 08:00 08/09/20 08:18 Dexamethasone 4 Mg Tab PO 6 mg QAM-WM TRISHA Administration Docusate Sodium 100 mg 07/21/20 09:00 08/09/20 08:17 Docusate 100 Mg Cap PO 100 mg DAILY TRISHA Administration Duloxetine HCl 60 mg 07/21/20 09:00 08/09/20 08:16 Duloxetine 60 Mg Cap PO 60 mg DAILY TRISHA Administration Fish Oil 1,000 mg 07/21/20 09:00 08/09/20 08:16 Fish Oil 1,000 Mg Cap PO 1,000 mg QAM TRISHA Administration Guaifenesin 200 mg 07/21/20 07:59 07/27/20 10:10 Diabetic Tussin 200 Mg/10 Ml Udcup PO 200 mg Q4H PRN Administration Cough Heparin Sodium (Porcine) 5,000 units 07/20/20 15:00 08/09/20 20:41 Heparin 5,000 Units/Ml Vial SC 5,000 units TID TRISHA Administration Iron/Minerals/Multivitamins 1 tab 07/20/20 21:00 08/09/20 20:39 Multivitamin W/ Minerals 1 Tab PO 1 tab HS TRISHA Administration Latanoprost 1 drop 07/20/20 21:00 08/09/20 20:41 Latanoprost 0.005% Ophth Soln 2.5 Ml Bottle EA EYE 1 drp HS TRIHSA Administration Losartan Potassium 50 mg 07/21/20 09:00 08/09/20 08:17 Losartan 25 Mg Tab PO 50 mg DAILY TRISHA Administration Mirtazapine 15 mg 07/20/20 21:00 08/09/20 20:39 Mirtazapine 15 Mg Tab PO 15 mg HS TRISHA Administration Mometasone Furoate 200 mcg 07/30/20 06:30 08/10/20 06:27 Mometasone 100 Mcg/Puff (1 Inhaler) INH 1 inh BID-RT TRISHA Administration Ondansetron HCl 4 mg 07/20/20 10:03 07/20/20 21:42 Ondansetron Odt 4 Mg Tab PO 4 mg Q6H PRN Administration Nausea/Vomiting Pantoprazole Sodium 40 mg 07/21/20 09:00 08/09/20 08:16 Pantoprazole 40 Mg Tab PO 40 mg DAILY TRISHA Administration Pregabalin 50 mg 07/20/20 21:00 08/09/20 20:39 Pregabalin 50 Mg Cap PO 50 mg BID TRISHA Administration Simvastatin 10 mg 07/20/20 21:00 08/09/20 20:40 Simvastatin 10 Mg Tab PO 10 mg HS TRISHA Administration Sodium Chloride 10 ml 07/20/20 10:03 08/07/20 09:02 Flush - Normal Saline 10 Ml Syringe IVF 10 ml PRN PRN Administration Saline Flush Timolol Maleate 1 drop 07/21/20 09:00 08/09/20 08:20 Timolol 0.5% Ophth Soln 5 Ml Bottle EA EYE 1 drp DAILY TRISHA Administration Torsemide 20 mg 07/20/20 21:00 08/09/20 20:39 Torsemide 20 Mg Tab PO 20 mg BID TRISHA Administration Zinc Sulfate 220 mg 07/20/20 09:00 08/09/20 08:16 Zinc Sulfate 220 Mg Cap PO 220 mg DAILY TRISHA Administration - Exam General Appearance: NAD, awake alert ENT: moist mucosa Heart: RRR, no murmur, no gallops, no rubs Respiratory: no wheezes, no ronchi Respiratory - other findings: few rales in bases, good air movement Gastrointestinal: soft, non-tender, non-distended, normal bowel sounds Psychiatric: normal affect, normal behavior, A&O x 3 Hosp A/P (1) Acute respiratory failure with hypoxia Code(s): J96.01 - ACUTE RESPIRATORY FAILURE WITH HYPOXIA Status: Acute (2) Pneumonia due to COVID-19 virus Code(s): U07.1 - COVID-19; J12.89 - OTHER VIRAL PNEUMONIA Status: Acute (3) CKD (chronic kidney disease), stage IV Code(s): N18.4 - CHRONIC KIDNEY DISEASE, STAGE 4 (SEVERE) Status: Chronic (4) GERD (gastroesophageal reflux disease) Code(s): K21.9 - GASTRO-ESOPHAGEAL REFLUX DISEASE WITHOUT ESOPHAGITIS Status: Chronic Qualifiers: Esophagitis presence: without esophagitis Qualified Code(s): K21.9 - Gastro-esophageal reflux disease without esophagitis (5) Obesity (BMI 30-39.9) Code(s): E66.9 - OBESITY, UNSPECIFIED Status: Chronic - Plan * Acute respiratory failure due to COVID pneumonia- she has been weaned off high flow oxygen * Weaning down Decadron as has been on more than 2 weeks now * Continue incentive spirometry, and ambulation in the room * CKD- stage 4 stable * Continue ambulation and mobilization * Once she remains stable on NC likely weaned down to 2L- then can consider discharge home with home oxygen
[2020-08-10] MEDS: Pregabalin 50 MG CAP PO SCH ×2 (09:03→20:19)
[2020-08-10] MEDS: Calcium Carbonate 600 MG + Vit D TAB PO SCH ×2 (09:03→20:19)
[2020-08-10] MEDS: Docusate 100 MG CAP PO SCH (09:03)
[2020-08-10] MEDS: Losartan 25 MG TAB PO SCH (09:03)
[2020-08-10] MEDS: Ascorbic Acid 500 mg Chewable Tablet PO SCH (09:04)
[2020-08-10] MEDS: Fish Oil 1,000 MG CAP PO SCH (09:04)
[2020-08-10] MEDS: DULoxetine 60 MG CAP PO SCH (09:04)
[2020-08-10] MEDS: Torsemide 20 MG TAB PO SCH ×2 (09:04→20:24)
[2020-08-10] MEDS: Timolol 0.5% Ophth Soln 5 ml Bottle EA EYE SCH (09:06)
[2020-08-10] MEDS: Zinc Sulfate 220 MG CAP PO SCH (09:06)
[2020-08-10] MEDS: Heparin 5,000 UNITS/ML VIAL SC SCH ×3 (09:06→20:19)
[2020-08-10] MEDS: Dexamethasone 4 MG TAB PO SCH (09:37)
[2020-08-10] MEDS: Mirtazapine 15 MG TAB PO SCH (20:18)
[2020-08-10] MEDS: Cholecalciferol 1,000 UNITS (25 MCG) TAB PO SCH (20:18)
[2020-08-10] MEDS: Latanoprost 0.005% Ophth Soln 2.5 ml Bottle EA EYE SCH (20:19)
[2020-08-10] MEDS: Multivitamin W/ Minerals 1 TAB PO SCH (20:19)
[2020-08-10] MEDS: Simvastatin 10 MG TAB PO SCH (20:24)
[2020-08-11] MEDS: Mometasone 100 MCG/PUFF (1 INHALER) INH SCH ×2 (06:32→20:38)
[2020-08-11] MEDS: Fish Oil 1,000 MG CAP PO SCH (07:57)
[2020-08-11] MEDS: Docusate 100 MG CAP PO SCH (07:57)
[2020-08-11] MEDS: Dexamethasone 4 MG TAB PO SCH (07:57)
[2020-08-11] MEDS: Ascorbic Acid 500 mg Chewable Tablet PO SCH (07:57)
[2020-08-11] MEDS: DULoxetine 60 MG CAP PO SCH (07:57)
[2020-08-11] MEDS: Calcium Carbonate 600 MG + Vit D TAB PO SCH ×2 (07:57→20:39)
[2020-08-11] MEDS: Zinc Sulfate 220 MG CAP PO SCH (07:57)
[2020-08-11] MEDS: Heparin 5,000 UNITS/ML VIAL SC SCH ×3 (07:58→20:40)
[2020-08-11] MEDS: Pregabalin 50 MG CAP PO SCH ×2 (07:58→20:40)
[2020-08-11] MEDS: Timolol 0.5% Ophth Soln 5 ml Bottle EA EYE SCH (08:00)
[2020-08-11] MEDS: Torsemide 20 MG TAB PO SCH ×2 (08:02→20:39)
[2020-08-11] MEDS: Losartan 25 MG TAB PO SCH (08:02)
--- NOTE | 2020-08-11 15:27 | PDOC.HOSPP ---
- Subjective Encounter Date: 08/11/20 Encounter Time: 15:05 Subjective: f/u for COVID PNA with resp failure hospital day #23. Feels better overall and currently on 2-3L/min NC. Ready to go home. - Objective Vital Signs & Weight: Vital Signs (12 hours) Temp Pulse Resp BP BP Pulse Ox 08/11/20 08:00 98.2 F 66 18 126/64 96 08/11/20 05:00 97.6 F 68 20 120/63 95 Weight Admit Weight 268 lb 15.424 oz Weight 268 lb 15.423 oz I&O: 08/10/20 08/11/20 08/12/20 07:59 06:59 06:59 Intake Total 720 Output Total Balance 720 Result Diagrams: 08/03/20 05:48 08/02/20 05:34 Additional Labs: Laboratory Tests 07/31/20 05:27 Sodium 131 L BUN 61 H Creatinine 1.80 H Hospitalist ROS - Medication Medications: Active Medications Generic Name Dose Route Start Last Admin Trade Name Freq PRN Reason Stop Dose Admin Acetaminophen 650 mg 07/20/20 10:03 07/24/20 22:27 Acetaminophen 325 Mg Tab PO 650 mg Q4H PRN Administration Headache/Fever/Mild Pain (1-3) Albuterol Sulfate 1 puff 07/23/20 10:27 08/05/20 07:16 Albuterol 200 Puff (6.7gm Inhaler) INH 1 puff [id number] PRN Administration Wheezing Ascorbic Acid 1,000 mg 07/20/20 09:00 08/11/20 07:57 Ascorbic Acid 500 Mg Chewable Tablet PO 1,000 mg DAILY TRISHA Administration Bisacodyl 10 mg 07/19/20 16:55 07/30/20 21:00 Bisacodyl 5 Mg Tab PO 10 mg DAILYPRN PRN Administration Constipation Calcium/Vitamin D 1 tab 07/20/20 21:00 08/11/20 07:57 Calcium Carbonate 600 Mg + Vit D Tab PO 1 tab BID TRISHA Administration Cholecalciferol 1,000 units 07/20/20 21:00 08/10/20 20:18 Cholecalciferol 1,000 Units (25 Mcg) Tab PO 1,000 units QPM TRISHA Administration Dexamethasone 4 mg 08/11/20 08:00 08/11/20 07:57 Dexamethasone 4 Mg Tab PO 4 mg QAM-WM TRISHA Administration Docusate Sodium 100 mg 07/21/20 09:00 08/11/20 07:57 Docusate 100 Mg Cap PO 100 mg DAILY TRISHA Administration Duloxetine HCl 60 mg 07/21/20 09:00 08/11/20 07:57 Duloxetine 60 Mg Cap PO 60 mg DAILY TRISHA Administration Fish Oil 1,000 mg 07/21/20 09:00 08/11/20 07:57 Fish Oil 1,000 Mg Cap PO 1,000 mg QAM TRISHA Administration Guaifenesin 200 mg 07/21/20 07:59 07/27/20 10:10 Diabetic Tussin 200 Mg/10 Ml Udcup PO 200 mg Q4H PRN Administration Cough Heparin Sodium (Porcine) 5,000 units 07/20/20 15:00 08/11/20 14:32 Heparin 5,000 Units/Ml Vial SC 5,000 units TID TRISHA Administration Iron/Minerals/Multivitamins 1 tab 07/20/20 21:00 08/10/20 20:19 Multivitamin W/ Minerals 1 Tab PO 1 tab HS TRISHA Administration Latanoprost 1 drop 07/20/20 21:00 08/10/20 20:19 Latanoprost 0.005% Ophth Soln 2.5 Ml Bottle EA EYE 1 drp HS TRISHA Administration Losartan Potassium 50 mg 07/21/20 09:00 08/11/20 08:02 Losartan 25 Mg Tab PO 50 mg DAILY TRISHA Administration Mirtazapine 15 mg 07/20/20 21:00 08/10/20 20:18 Mirtazapine 15 Mg Tab PO 15 mg HS TRISHA Administration Mometasone Furoate 200 mcg 07/30/20 06:30 08/11/20 06:32 Mometasone 100 Mcg/Puff (1 Inhaler) INH 2 inh BID-RT TRISHA Administration Ondansetron HCl 4 mg 07/20/20 10:03 07/20/20 21:42 Ondansetron Odt 4 Mg Tab PO 4 mg Q6H PRN Administration Nausea/Vomiting Pantoprazole Sodium 40 mg 07/21/20 09:00 08/11/20 07:58 Pantoprazole 40 Mg Tab PO 40 mg DAILY TRISHA Administration Pregabalin 50 mg 07/20/20 21:00 08/11/20 07:58 Pregabalin 50 Mg Cap PO 50 mg BID TRISHA Administration Simvastatin 10 mg 07/20/20 21:00 08/10/20 20:24 Simvastatin 10 Mg Tab PO 10 mg HS TRISHA Administration Sodium Chloride 10 ml 07/20/20 10:03 08/07/20 09:02 Flush - Normal Saline 10 Ml Syringe IVF 10 ml PRN PRN Administration Saline Flush Timolol Maleate 1 drop 07/21/20 09:00 08/11/20 08:00 Timolol 0.5% Ophth Soln 5 Ml Bottle EA EYE 1 drp DAILY TRISHA Administration Torsemide 20 mg 07/20/20 21:00 08/11/20 08:02 Torsemide 20 Mg Tab PO 20 mg BID TRISHA Administration Zinc Sulfate 220 mg 07/20/20 09:00 08/11/20 07:57 Zinc Sulfate 220 Mg Cap PO 220 mg DAILY TRISHA Administration - Exam General Appearance: NAD, awake alert Eye: PERRL, anicteric sclera ENT: normocephalic atraumatic, no oropharyngeal lesions Neck: supple, symmetric, no JVD, no thyromegaly, no lymphadenopathy Heart: RRR, no gallops, no rubs, normal peripheral pulses Heart - other findings: S1, S2 Respiratory: CTAB, no rales, no ronchi, no tachypnea Gastrointestinal: soft, non-tender, non-distended, normal bowel sounds, no palpable masses Extremities: no cyanosis, no clubbing, no edema Skin: normal turgor, no lesions Neurological: cranial nerve grossly intact, no new deficit Musculoskeletal: normal tone, generalized weakness Psychiatric: normal affect, A&O x 3 Hosp A/P (1) Acute respiratory failure with hypoxia Code(s): J96.01 - ACUTE RESPIRATORY FAILURE WITH HYPOXIA Status: Acute Plan: Weaned down to 3L/min NC, set up for home O2 (2) Pneumonia due to COVID-19 virus Code(s): U07.1 - COVID-19; J12.89 - OTHER VIRAL PNEUMONIA Status: Acute Plan: s/p plasma/Remdesivir/Dexamethasone, hospital day #23, d/c isolation precautions (3) Acute renal failure superimposed on stage 3 chronic kidney disease Code(s): N17.9 - ACUTE KIDNEY FAILURE, UNSPECIFIED; N18.30 - CHRONIC KIDNEY DISEASE, STAGE 3 UNSPECIFIED Status: Acute Qualifiers: Chronic kidney disease stage 3 subtype: stage 3b (GFR 30-44) Plan: Improved, avoid nephrotoxic meds and limit contrast exposure (4) Obesity (BMI 30-39.9) Code(s): E66.9 - OBESITY, UNSPECIFIED Status: Chronic - Plan PT/OT, nephrology social worker, respiratory therapy, out of bed/ambulate, DVT proph w/SCDs Stable currently Continue O2 support, set up home O2 Continue Dexamethasone OOB/ambulate Likely home in am 08/12/20
[2020-08-11] MEDS: Mirtazapine 15 MG TAB PO SCH (20:39)
[2020-08-11] MEDS: Cholecalciferol 1,000 UNITS (25 MCG) TAB PO SCH (20:39)
[2020-08-11] MEDS: Simvastatin 10 MG TAB PO SCH (20:40)
[2020-08-11] MEDS: Latanoprost 0.005% Ophth Soln 2.5 ml Bottle EA EYE SCH (20:40)
[2020-08-11] MEDS: Multivitamin W/ Minerals 1 TAB PO SCH (20:40)
[2020-08-12] MEDS: Mometasone 100 MCG/PUFF (1 INHALER) INH SCH (06:10)
[2020-08-12] MEDS: DULoxetine 60 MG CAP PO SCH (07:48)
[2020-08-12] MEDS: Dexamethasone 4 MG TAB PO SCH (07:48)
[2020-08-12] MEDS: Pregabalin 50 MG CAP PO SCH (07:48)
[2020-08-12] MEDS: Calcium Carbonate 600 MG + Vit D TAB PO SCH (07:49)
[2020-08-12] MEDS: Zinc Sulfate 220 MG CAP PO SCH (07:49)
[2020-08-12] MEDS: Docusate 100 MG CAP PO SCH (07:49)
[2020-08-12] MEDS: Ascorbic Acid 500 mg Chewable Tablet PO SCH (07:50)
[2020-08-12] MEDS: Losartan 25 MG TAB PO SCH (07:50)
[2020-08-12] MEDS: Fish Oil 1,000 MG CAP PO SCH (07:50)
[2020-08-12] MEDS: Heparin 5,000 UNITS/ML VIAL SC SCH (07:51)
[2020-08-12] MEDS: Timolol 0.5% Ophth Soln 5 ml Bottle EA EYE SCH (07:52)
[2020-08-12] MEDS: Torsemide 20 MG TAB PO SCH (07:53)
[2020-08-12 08:17] VITALS: BP 120/73; TEMP 98.3
--- NOTE | 2020-08-12 11:38 | DIS ---
DATE OF ADMISSION: 07/19/2020 DATE OF DISCHARGE: 08/12/2020 DISCHARGE DIAGNOSES: 1. Acute hypoxic respiratory failure, secondary to #2. 2. Pneumonia secondary to the COVID-19 virus. 3. Acute kidney injury on chronic kidney disease, stage 3. 4. Morbid obesity. 5. Hypertension. CONSULTATION: Dr. Gage Paniagua with Infectious Disease Service. PERTINENT LABORATORY AND X-RAY FINDINGS: Sodium level ranged between 131 to 139. Creatinine ranged between 1.37 to 1.80. Estimated GFR ranged between 27 to 37. CBC showed a white blood cell count ranging between 5.5 to 12.8, hemoglobin ranged between 9.8 to 11.1. Portable chest x-ray dated 07/19/2020, showed no acute cardiopulmonary process. CT angiogram of the chest dated 07/19/2020, showed ground-glass opacities in bilateral lung kyle. No evidence for pulmonary embolus. Portable chest x-ray dated 07/23/2020, showed bilateral patchy infiltrates. Portable chest x-ray dated 08/02/2020, showed bilateral perihilar and alveolar infiltrates. HOSPITAL COURSE: The patient was initially admitted after presenting with increased shortness of breath with initial COVID-19 positive testing prior to admission. The patient initially was placed on IV dexamethasone and subcutaneous Lovenox as well as isolation protocol. The patient was also given supplemental oxygen for mild hypoxemia. The patient was evaluated by the Infectious Disease Service with recommendations to continue IV azithromycin and Rocephin. The patient received convalescent plasma, but was unable to receive remdesivir due to renal dysfunction. The patient continued general supportive management throughout the hospital course; however, the patient required higher oxygen flows during the hospital course, however, was able to wean down to 2 L/minute by nasal cannula by the time of discharge. Due to the patient's ongoing oxygen requirement, the patient will be set up with home oxygen to continue weaning after discharge. The patient slowly clinically improved and has been ambulatory without assistance or difficulty. Vital signs have remained stable and inflammatory markers are trending toward normal ranges. The patient overall remained clinically stable with supportive management and ready for discharge on 08/12/2020. I have examined the patient at the time of discharge and discussed followup instructions. The patient verbalizes understanding and agreement, ready for discharge on 08/12/2020. DISCHARGE MEDICATIONS: 1. Cymbalta 60 mg p.o. daily. 2. [place]-3 fatty acids 1200 mg p.o. q.a.m. 3. Losartan 50 mg p.o. daily. 4. Lumigan 0.01% one drop to each eye at bedtime. 5. Lyrica 50 mg p.o. b.i.d. 6. MiraLAX 17 g p.o. daily p.r.n. 7. Glucosamine one tablet p.o. b.i.d. 8. Pravachol 20 mg p.o. at bedtime. 9. Protonix 40 mg p.o. daily. 10. Remeron 15 mg p.o. at bedtime. 11. Senokot two tablets p.o. daily p.r.n. 12. Timolol 0.5% ophthalmic solution one drop to each eye daily. 13. Torsemide 20 mg p.o. b.i.d. 14. Vitamin D3, 1000 units p.o. at bedtime. 15. Dexamethasone 6 mg p.o. daily x5 days. 16. Dulcolax 10 mg per rectum daily p.r.n. 17. Omnicef 300 mg p.o. b.i.d. x5 days. 18. Proventil HFA one puff inhaled q.6 hours p.r.n. 19. Vitamin C 1000 mg p.o. daily. 20. Zinc sulfate 220 mg p.o. daily. FOLLOWUP: The patient may follow up with Dr. Quinten Shaffer within 7 days of discharge. CONDITION ON DISCHARGE: Stable. ACTIVITY: Ad-kathleen. DIET: Heart healthy. CODE STATUS: Full. DISPOSITION: To home on 08/12/2020. Total time preparing and coordinating discharge, 35 minutes. Job ID: [id number]
== END 2020-08-12 14:49 | disposition home health service (06) | DRG 177 ==
LOC: ERS 12:10 → T4-A 16:08
PROVIDERS: ADMIT Internal Medicine; ATTEND Family Medicine
PROC: 8E0ZXY6 Isolation (ICD-10-PCS; principal; 2020-07-19)
PROC: XW13325 Transfusion of Convalescent Plasma (Nonautologous) into Peripheral Vein, Percutaneous Approach, New Technology Group 5 (ICD-10-PCS; 2020-07-20)
PROC: 3E02340 Introduction of Influenza Vaccine into Muscle, Percutaneous Approach (ICD-10-PCS; 2020-07-20)
DX: U07.1 COVID-19 (principal); J12.89 Other viral pneumonia; J96.01 Acute respiratory failure with hypoxia; N17.9 Acute kidney failure, unspecified; I13.0 Hypertensive heart and chronic kidney disease with heart failure and stage 1 through stage 4 chronic kidney disease, or unspecified chronic kidney disease; I50.32 Chronic diastolic (congestive) heart failure; N18.4 Chronic kidney disease, stage 4 (severe); M19.90 Unspecified osteoarthritis, unspecified site; H40.9 Unspecified glaucoma; E66.01 Morbid (severe) obesity due to excess calories; K21.9 Gastro-esophageal reflux disease without esophagitis; E78.5 Hyperlipidemia, unspecified; Z96.653 Presence of artificial knee joint, bilateral; F32.9 Major depressive disorder, single episode, unspecified; Z23 Encounter for immunization; Z68.38 Body mass index [BMI] 38.0-38.9, adult; Z79.899 Other long term (current) drug therapy; Z85.3 Personal history of malignant neoplasm of breast
CPT/HCPCS: 36415; 36430; 71045; 71275; 80048; 80053; 81001; 82550; 82728; 82805; 83690; 83880; 84484; 85025; 85379; 85610; 85730; 86140; 86850; 86900; 86901; 90471; 90732; 93005; 96365; 96367; 96372; 96375; G0009; J0456; J0696; J1100; J1644; J1650; J3490; J7050; J8540; P9017; Q0162

== ENCOUNTER 2021-02-18 14:30 | Outpatient (CLI) | payer MEDICARE, BC | END 2021-02-18 14:31 | disposition home or self-care (01) | LOC: DTY/OP 14:30 | PROVIDERS: ATTEND Family Medicine | DX: N18.4 Chronic kidney disease, stage 4 (severe) (principal) | CPT/HCPCS: 97802 ==

== ENCOUNTER 2022-07-28 09:53 | Outpatient (CLI) | payer MEDICARE, BC | END 2022-07-28 09:54 | disposition home or self-care (01) | LOC: TBSIIMAG 09:53 | PROVIDERS: ATTEND Nurse Practitioner Family | DX: M48.062 Spinal stenosis, lumbar region with neurogenic claudication (principal); M51.36 Other intervertebral disc degeneration, lumbar region | CPT/HCPCS: 72148 ==

== ENCOUNTER 2024-10-08 15:18 | Emergency (ER) | payer MEDICARE ==
[2024-10-08 15:54] LABS: #Basophils 0.05 10x3/uL (0.0-0.2); %Basophils 0.5 % (0.0-1.0); %Eosinophils 2.4 % (0.0-10.0); %Lymphocytes 18.6 % (21.0-51.0); %Monocytes 7.3 % (0.0-10.0); %Neutrophils 70.7 % (42.0-75.0); Hematocrit 24.8 % (36.0-47.0); Hemoglobin 7.9 g/dL (12.0-16.0); Mean Corpuscular HGB CONC 31.9 g/dL (32.0-36.0); Mean Corpuscular Hemoglobin 29.5 pg (27.0-31.0); Mean Corpuscular Volume 92.5 fL (78.0-98.0); Mean Platelet Volume 9.6 fL (7.4-10.4); Platelet Count 309 10x3/uL (130-400); RBC Distribution Width 13.8 % (11.5-14.5); Red Blood Cell (RBC) Count 2.68 mill/uL (4.20-5.40)
[2024-10-08 16:17] LABS: ALT (SGPT) 11 U/L (8-55); AST (SGOT) 16 U/L (5-34); Albumin 2.7 g/dL (3.4-4.8); Alkaline Phosphatase 58 U/L (40-110); Anion Gap 16 mmol/L (10-20); BUN (Urea Nitrogen) 68 mg/dL (9.8-20.1); Bilirubin, Total 0.2 mg/dL (0.2-1.2); Calc. Creatinine Clearance 0 mL/min (70-130); Calcium 9.7 mg/dL (7.8-10.44); Carbon Dioxide 26 mmol/L (23-31); Chloride 107 mmol/L (98-107); Estimated GFR 27; Globulin 3.9 g/dL (2.4-3.5); Glucose 99 mg/dL (83-110); Lipase 22 U/L (8-78); Magnesium 2.3 mg/dL (1.6-2.6); Potassium 4.6 mmol/L (3.5-5.1); Protein, Total 6.6 g/dL (5.8-8.1); Sodium 144 mmol/L (136-145)
[2024-10-08 16:19] LABS: Troponin I Less than 0.010 ng/mL (< 0.028)
[2024-10-08 16:33] LABS: Bacteria/HPF None Seen HPF (None Seen); Bilirubin Negative (Negative); Blood, Urine Negative (Negative); CAUTI Indications for Culture Alt mental st,lethar; Clarity Clear (Clear); Glucose, Urine (Dipstick) Normal (Negative); Ketone, Urine Negative (Negative); Leukocyte 25 Leu/uL (Negative); Nitrite Negative (Negative); Protein, Urine (Dipstick) Negative (Neg-Trace); RBC/HPF 0-3 HPF (0-3); Squamous Epithelial 0-3 HPF (0-3); Urobilinogen Normal mg/dL (Less than 2); WBC/HPF 0-3 HPF (0-3)
[2024-10-08 16:35] LABS: Urine Culture Reflex No No
== END 2024-10-08 17:40 | disposition home or self-care (01) ==
LOC: ERS 15:18
DX: F32.A Depression, unspecified (principal); R41.82 Altered mental status, unspecified; I12.9 Hypertensive chronic kidney disease with stage 1 through stage 4 chronic kidney disease, or unspecified chronic kidney disease; N18.9 Chronic kidney disease, unspecified
CPT/HCPCS: 36415; 70450; 80053; 81001; 83605; 83690; 83735; 84484; 85025; 93005